=== PATIENT | male | born 1950 | race Caucasian/White ===

== ENCOUNTER 2017-06-23 15:03 | Emergency (ER) | payer MEDICARE ==
--- NOTE | 2017-06-23 15:08 | ER Document Report ---
ED General Pain - General Stated Complaint: RIGHT HIP/KNEE PAIN Time Seen by Provider: 06/23/17 15:07 Notes: 67-year-old male to the emergency department complaining of chronic pain in the right hip and right knee. Denies any trauma. History of cerebral palsy. 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 Pain is worse with movement but can move. Limited weightbearing. Normally he likes to sleep on his right side but it hurts to sleep so he has been sleeping on his left side. Denies any fever, chills, sweats. Denies any swelling or bruising outside of regular. TRAVEL OUTSIDE OF THE [place] IN LAST 30 DAYS: No - HPI Onset/Duration: Gradual Severity: Moderate Pain Level: 2 Context: Chronic problem - Related Data Allergies/Adverse Reactions: No Known Drug Allergies Allergy (Unknown, Verified 12/20/14 13:51) bee stings Allergy (Uncoded 12/20/14 13:51) Past Medical History - General Information source: Patient - Social History Smoking Status: Never Smoker Frequency of alcohol use: None Drug Abuse: None Lives with: Alone Family History: Reviewed & Not Pertinent, Other - Past Medical History Cardiac Medical History: Reports: Hx Hypercholesterolemia, Hx Hypertension Renal/ Medical History: Denies: Hx Peritoneal Dialysis GI Medical History: Reports: Hx Gastroesophageal Reflux Disease Musculoskeltal Medical History: Reports Hx Arthritis - osteoarthritis Past Surgical History: Reports: Hx Orthopedic Surgery - Left Knee, Hx Tonsillectomy - Immunizations Immunizations up to date: Yes Hx Diphtheria, Pertussis, Tetanus Vaccination: Yes Review of Systems - Review of Systems Constitutional: No symptoms reported EENT: No symptoms reported Cardiovascular: No symptoms reported Respiratory: No symptoms reported Gastrointestinal: No symptoms reported Genitourinary: No symptoms reported Male Genitourinary: No symptoms reported Musculoskeletal: See HPI, Other - Right hip and right knee pain Skin: No symptoms reported Hematologic/Lymphatic: No symptoms reported Neurological/Psychological: No symptoms reported, Other - History of cerebral palsy Physical Exam - Vital signs Vitals: Temp Pulse Resp BP Pulse Ox 98.1 F 90 18 140/90 H 99 06/23/17 15:33 06/23/17 15:33 06/23/17 15:33 06/23/17 15:33 06/23/17 15:33 Interpretation: Normal - General General appearance: Appears well, Alert - HEENT Head: Normocephalic, Atraumatic Eyes: Normal Pupils: PERRL - Respiratory Respiratory status: No respiratory distress Chest status: Nontender Breath sounds: Normal Chest palpation: Normal - Cardiovascular Rhythm: Regular Heart sounds: Normal auscultation Murmur: No - Abdominal Inspection: Normal Distension: No distension Bowel sounds: Normal Tenderness: Nontender Organomegaly: No organomegaly - Back Back: Normal, Nontender - Extremities General upper extremity: Normal inspection, Nontender, Normal color, Normal ROM , Normal temperature General lower extremity: Normal color, Normal ROM, Normal temperature, Other - No significant tenderness with range of motion. Able to bend the knee. Able to move the hip flexors on the right hip.. No: Edema, Clarke's sign - Neurological Neuro grossly intact: Yes Cognition: Normal Orientation: AAOx4 [place] Coma Scale Eye Opening: Spontaneous [place] Coma Scale Verbal: Oriented Eduard Coma Scale Motor: Obeys Commands Eduard Coma Scale Total: 15 Speech: Normal Sensory: Normal - Psychological Associated symptoms: Normal affect, Normal mood - Skin Skin Temperature: Warm Skin Moisture: Dry Skin Color: Normal Course - Re-evaluation Re-evalutation: 06/23/17 16:57 Femur X-Ray 06/23/17 15:17 IMPRESSION: Marked dysplasia of the right hip and tricompartmental degenerative changes of the knee without acute fracture or dislocation. Knee X-Ray 06/23/17 15:17 IMPRESSION: Tricompartmental degenerative changes and patella Amanda. No acute finding. Pelvis X-Ray 06/23/17 15:17 IMPRESSION: Dysplasia of the hips without acute fracture or dislocation visualized. No acute abnormalities noted in the femur, hip, pelvis, knee. Patient has some chronic degenerative changes with dysplasia. At this time will offer him some pain medication. Encouraged him to follow-up with his regular doctors. - Vital Signs Vital signs: Temp Pulse Resp BP Pulse Ox 98.1 F 90 18 140/90 H 99 06/23/17 15:33 06/23/17 15:33 06/23/17 15:33 06/23/17 15:33 06/23/17 15:33 Discharge - Discharge Clinical Impression: Chronic hip pain Qualifiers: Laterality: right Qualified Code(s): M25.551 - Pain in right hip; G89.29 - Other chronic pain; G89.29 - Other chronic pain Chronic knee pain Qualifiers: Laterality: right Qualified Code(s): M25.561 - Pain in right knee; G89.29 - Other chronic pain; G89.29 - Other chronic pain Condition: Good Disposition: HOME, SELF-CARE Instructions: Oral Narcotic Medication ([facility]), Chronic Pain Control ([facility]) Additional Instructions: There does not appear to be any acute injuries or issues with your hip or knee. This is a very basic workup. In the event that you develop fever, worsening pain, worsening symptoms or other concerns please return to the emergency department or follow-up with your regular doctor immediately. We will give you a short supply of some pain medication if needed. Prescriptions: Hydrocodone/Acetaminophen [Votaw 5-325 mg Tablet] 1 tab PO TID 4 Days #12 tablet
[2017-06-23] MEDS ORDERED: HYDROCODONE/ACETAMINOPHEN 5-325 MG TABLET PO ONE (15:17)
--- NOTE | 2017-06-23 16:37 | RADIOLOGY REPORT (SQ) ---
EXAM DESCRIPTION: FEMUR RIGHT COMPLETED DATE/TIME: 06/23/2017 4:20 pm REASON FOR STUDY: (right hip)pain without trauma COMPARISON: CT of the abdomen and pelvis dated 04/24/2015 NUMBER OF VIEWS: Two views. TECHNIQUE: Two radiographic images acquired of the right femur to include hip and knee in at least o ne projection. LIMITATIONS: None. FINDINGS: MINERALIZATION: Osteopenia. BONES: There is marked dysplasia of the right hip, similar to that seen on comparison CT imaging. Tr icompartmental degenerative changes are seen of the knee with patella Amanda. No acute fracture or dis location is visualized. SOFT TISSUES: No obvious swelling or foreign body. OTHER: No other significant finding. IMPRESSION: Marked dysplasia of the right hip and tricompartmental degenerative changes of the knee without acute fracture or dislocation. TECHNICAL DOCUMENTATION: JOB ID: [id number] [employer]- All Rights Reserved Reading location - IP/workstation name: [email or web address]
--- NOTE | 2017-06-23 16:39 | RADIOLOGY REPORT (SQ) ---
EXAM DESCRIPTION: KNEE RIGHT 2 VIEWS COMPLETED DATE/TIME: 06/23/2017 4:20 pm REASON FOR STUDY: pain without trauma COMPARISON: None. NUMBER OF VIEWS: Two views. TECHNIQUE: AP and lateral radiographic images acquired of the right knee. LIMITATIONS: None. FINDINGS: MINERALIZATION: Osteopenia. BONES: Tricompartmental degenerative changes. Patella Amanda. JOINT: No effusion. SOFT TISSUES: No soft tissue swelling. No radio-opaque foreign body. OTHER: No other significant finding. IMPRESSION: Tricompartmental degenerative changes and patella Amanda. No acute finding. TECHNICAL DOCUMENTATION: JOB ID: [id number] [employer]- All Rights Reserved Reading location - IP/workstation name: [email or web address]
--- NOTE | 2017-06-23 16:40 | RADIOLOGY REPORT (SQ) ---
EXAM DESCRIPTION: PELVIS AP COMPLETED DATE/TIME: 06/23/2017 4:20 pm REASON FOR STUDY: pain without trauma COMPARISON: CT of the abdomen and pelvis 04/24/2015 NUMBER OF VIEWS: One view TECHNIQUE: AP Pelvis LIMITATIONS: None. FINDINGS: MINERALIZATION: Osteopenia. HIPS: Marked dysplasia seen of the right hip, similar to that seen on comparison CT imaging. Moderat e dysplasia is seen of the left hip. PELVIS AND SACRUM: No acute fracture or dislocation. No worrisome bone lesions. PUBIS AND ISCHIUM: No acute fracture. LOWER LUMBAR SPINE: No significant findings as visualized. SOFT TISSUES: No findings. OTHER: No other significant finding. IMPRESSION: Dysplasia of the hips without acute fracture or dislocation visualized. TECHNICAL DOCUMENTATION: JOB ID: [id number] [employer] All Rights Reserved Reading location - IP/workstation name: [email or web address]
[2017-06-23 17:16] LABS: INTERNATIONAL RATION (INR) 2.18; PROTHROMBIN TIME 25.4 SEC (11.4-15.4)
[2017-06-23 18:01] VITALS: BP 139/88
== END 2017-06-23 18:01 | disposition home or self-care (01) ==
LOC: ER 15:03
DX: G89.29 Other chronic pain (principal); M25.551 Pain in right hip; M25.561 Pain in right knee; G80.9 Cerebral palsy, unspecified; I10 Essential (primary) hypertension; Z86.718 Personal history of other venous thrombosis and embolism; Z79.01 Long term (current) use of anticoagulants; Z91.030 Bee allergy status
CPT/HCPCS: 99283; 36415; 85610; 73552; 73560; 72170; A9270

== ENCOUNTER 2017-07-26 13:42 | Emergency (ER) | payer MEDICARE, MEDICAID ==
--- NOTE | 2017-07-26 13:47 | ER Document Report ---
ED General - General Stated Complaint: RIGHT FLANK PAIN Time Seen by Provider: 07/26/17 13:46 Mode of Arrival: Ambulatory Information source: Patient TRAVEL OUTSIDE OF THE U.[place]. IN LAST 30 DAYS: No - HPI Notes: 67-year-old male with a history of chronic back pain, cerebral palsy presents today with complaints of lower back pain when he was transferred from a [place] to his bed last night. Denies any trauma or falling. Patient does not ambulate , this is his baseline. Pain is 6 out of 10, sharp and shooting. Worse with time, nothing makes better. Patient has not tried any heat or ice. Patient takes oxycodone as prescribed to him by his doctor. Denies trauma denies fevers , chills, chest pain,palpitations, shortness of breath, dyspnea, nausea, vomiting, diarrhea, abdominal pain, hematuria,blurred vision, double vision, loss of vision, speech changes, LH, dizziness, syncope, headaches, wheezing, ST , URI, neck pain, weakness, bowel or bladder dysfunction, saddle anesthesia, numbness or tingling in bilateral upper or lower extremities equally, muscle paralysis, weakness in bilateral upper or lower extremities equally or rash. Denies IV drug use. - Related Data Allergies/Adverse Reactions: No Known Drug Allergies Allergy (Unknown, Verified 07/26/17 14:04) bee stings Allergy (Uncoded 07/26/17 14:04) Past Medical History - General Information source: Patient - Social History Smoking Status: Unknown if Ever Smoked Family History: Reviewed & Not Pertinent, Other - Past Medical History Cardiac Medical History: Reports: Hx Hypercholesterolemia, Hx Hypertension Renal/ Medical History: Denies: Hx Peritoneal Dialysis GI Medical History: Reports: Hx Gastroesophageal Reflux Disease Musculoskeltal Medical History: Reports Hx Arthritis - osteoarthritis Past Surgical History: Reports: Hx Orthopedic Surgery - Left Knee, Hx Tonsillectomy - Immunizations Immunizations up to date: Yes Hx Diphtheria, Pertussis, Tetanus Vaccination: Yes Review of Systems - Review of Systems Constitutional: No symptoms reported EENT: No symptoms reported Cardiovascular: No symptoms reported Respiratory: No symptoms reported Gastrointestinal: No symptoms reported Genitourinary: No symptoms reported Male Genitourinary: No symptoms reported Musculoskeletal: See HPI Skin: No symptoms reported Hematologic/Lymphatic: No symptoms reported Neurological/Psychological: No symptoms reported Physical Exam - Vital signs Vitals: Temp Pulse Resp BP Pulse Ox 98.0 F 86 20 142/90 H 96 07/26/17 13:56 07/26/17 13:56 07/26/17 13:56 07/26/17 13:56 07/26/17 13:56 - Notes Notes: PHYSICAL EXAMINATION: GENERAL: Well-appearing, well-nourished and in no acute distress. HEAD: Atraumatic, normocephalic. EYES: Pupils equal round and reactive to light, extraocular movements intact, sclera anicteric, conjunctiva are normal. ENT: Nares patent, oropharynx clear without exudates. Moist mucous membranes. NECK: Normal range of motion, supple without lymphadenopathy LUNGS: Breath sounds clear to auscultation bilaterally and equal. No wheezes rales or rhonchi. HEART: Regular rate and rhythm without murmurs ABDOMEN: Soft, nontender, nondistended abdomen. No guarding, no rebound. No masses appreciated. Musculoskeletal: Normal range of motion, no pitting or edema. No cyanosis. NEUROLOGICAL: Cranial nerves grossly intact. Normal speech, normal gait. Normal sensory, motor exams.Pain with flexion and extension at 30 degrees, positive straight leg test positive. Normal hip rotation. DTR +2 in BLE equally. Strength 5 out of 5 both distally and proximally to bilateral lower extremities normal motor and sensory function in BLE equally. Distal pulses + 2 BLE equally. Noted paraspinal tenderness near L2 and L3. No spinal tenderness. No CVA tenderness bilaterally. Femoral pulses + 2 bilaterally and equally. No abrasions, scars, lacerations, ecchymosis of any recent trauma. normal gait. PSYCH: Normal mood, normal affect. SKIN: Warm, Dry, normal turgor, no rashes or lesions noted. Course - Re-evaluation Re-evalutation: 07/26/17 15:26 59-year-old male who appears chronically ill, afebrile vitals stable here for evaluation of lower back pain after he was moved from [place] to his bed yesterday. States pain is stabbing. Denies any trauma. Lumbar spine is negative for any acute fractures. Clinical examination does not have any lumbar spinal tenderness but does have paraspinal tenderness on the left and the right near L1 through L3. Patient does have full motor and sensory function bilateral lower extremities. She given 5 mg of morphine IM. On reevaluation, and states his pain decreased from a 6 to a 2 out of 10. Advised patient since he is already on oral narcotics, will prescribe Flexeril as well as an anti-inflammatories such as prednisone. Patient has a follow-up appointment with his doctor on August 01, advised patient also follow-up with card services specialist as needed. Advised to apply heat 20 minutes on 20 minutes off several times a day as well as back stretches. At this time will discharge with return precautions and follow-up recommendations. Verbal discharge instructions given a the bedside and opportunity for questions given. Be transported home through [facility] medication warnings reviewed. Patient is in agreement with this plan and has verbalized understanding of return precautions and the need for primary care follow-up in the next 24-72 hours. After performing a Medical Screening Examination, I estimate there is LOW risk for EXPANDING OR RUPTURED ABDOMINAL AORTIC ANEURYSM, CAUDA EQUINA SYNDROME, EPIDURAL MASS ABSCESS OR LESION(S), OSTEOMYELITIS,PERSONAL HISTORY OF CANCER, IMMUNOSUPPERSSSION, HISTORY OF IV DRUG USE, FRACTURE, CORD COMPERSSION, CANCER, RETROPERITONEAL BLEED, SPINAL EPIDURAL HEMATOMA, or HERNIATED DISK CAUSING SEVERE SPINAL STENOSIS, thus I consider the discharge disposition reasonable. I have reevaluated this patient multiple times and no significant life threatening changes are noted. The patient and I have discussed the diagnosis and risks, and we agree with discharging home and close follow-up. We also discussed returning to the Emergency Department immediately if new or worsening symptoms occur with the understanding that symptoms and presentations can change. We have discussed the symptoms which are most concerning (e.g., saddle anesthesia, urinary or bowel incontinence or retention, changing or worsening pain) that necessitate immediate return. 07/26/17 15:29 - Vital Signs Vital signs: Temp Pulse Resp BP Pulse Ox 98.0 F 86 20 142/90 H 96 07/26/17 13:56 07/26/17 13:56 07/26/17 13:56 07/26/17 13:56 07/26/17 13:56 Discharge - Discharge Clinical Impression: LOWER BACK SPRAIN Condition: Good Disposition: HOME, SELF-CARE Instructions: Chronic Back Pain ([facility]), Low Back Pain ([facility]), Stretching Exercises for the Back ([facility]) Prescriptions: Cyclobenzaprine HCl [Flexeril 10 mg Tablet] 10 mg PO TIDP PRN #9 tab PRN Reason: Prednisone 20 mg PO BID #10 tablet Referrals: STEVEN DEL RIO MD [Primary Care Provider] - Follow up in 3-5 days FRANKLYN POWERS MD [ACTIVE STAFF] - Follow up as needed
[2017-07-26] MEDS ORDERED: MORPHINE SULFATE 10 MG/ML INJ IM ONE (14:04)
--- NOTE | 2017-07-26 14:51 | RADIOLOGY REPORT (SQ) ---
EXAM DESCRIPTION: L SPINE WHOLE COMPLETED DATE/TIME: 07/26/2017 2:44 pm REASON FOR STUDY: sharp LBP x 1 day COMPARISON: None. NUMBER OF VIEWS: Five views including obliques. TECHNIQUE: AP, lateral, oblique, and sacral radiographic images acquired of the lumbar spine. LIMITATIONS: None. FINDINGS: MINERALIZATION: Normal. SEGMENTATION: Normal. No transitional anatomy. ALIGNMENT: Normal. VERTEBRAE: Maintained height. No fracture or worrisome bone lesion. DISCS: Multilevel disc space narrowing with osteophytes. POSTERIOR ELEMENTS: Pedicles and facets are intact. No pars defect or posterior arch defects. Facet arthropathy is present. HARDWARE: None in the spine. PARASPINAL SOFT TISSUES: Normal. PELVIS: Intact as visualized. No fractures or worrisome bone lesions. SI joints intact. Severe degen erative changes in the hips, not fully imaged. OTHER: No other significant finding. IMPRESSION: SPONDYLOSIS WITHOUT BONE LESION OR FRACTURE. TECHNICAL DOCUMENTATION: JOB ID: [id number] [employer]- All Rights Reserved Reading location - IP/workstation name: [email or web address]
[2017-07-26 17:28] VITALS: BP 151/93
== END 2017-07-26 17:28 | disposition home or self-care (01) ==
LOC: ER 13:42
DX: S33.5XXA Sprain of ligaments of lumbar spine, initial encounter (principal); R10.9 Unspecified abdominal pain; M54.5 Low back pain; M54.9 Dorsalgia, unspecified; G89.29 Other chronic pain; X58.XXXA Exposure to other specified factors, initial encounter; Z79.899 Other long term (current) drug therapy; I10 Essential (primary) hypertension
CPT/HCPCS: 99284; 96372; 72110; J2270

== ENCOUNTER 2017-08-18 08:57 | Emergency (ER) | payer MEDICARE, MEDICAID ==
--- NOTE | 2017-08-18 09:23 | ER Document Report ---
ED Neck/Back Problem <MITCH YANG - Last Filed: 08/18/17 10:21> - General Mode of Arrival: Ambulatory Information source: Patient TRAVEL OUTSIDE OF THE [place] IN LAST 30 DAYS: No <JAGRUTI BURTON - Last Filed: 08/18/17 11:11> - General Chief Complaint: Back Pain Stated Complaint: BACK PAIN Time Seen by Provider: 08/18/17 09:09 Notes: Patient is a 67-year-old male who presents to the emergency department today with complaints of acute on chronic back pain. Patient states the pain begins in his shouldersand goes down to his lower back. Patient denies any trauma or injury to this area. (JAGRUTI BURTON) - Related Data Allergies/Adverse Reactions: No Known Drug Allergies Allergy (Unknown, Verified 08/18/17 09:12) bee stings Allergy (Uncoded 08/18/17 09:12) Past Medical History - General Information source: Patient - Social History Smoking Status: Unknown if Ever Smoked Cigarette use (# per day): No Frequency of alcohol use: None Drug Abuse: None Lives with: Family Family History: Reviewed & Not Pertinent, Other Patient has suicidal ideation: No Patient has homicidal ideation: No - Past Medical History Cardiac Medical History: Reports: Hx Atrial Fibrillation, Hx Hypercholesterolemia, Hx Hypertension Neurological Medical History: Reports: Other - Hx of CP, diagnosed at -- only effects the legs GI Medical History: Reports: Hx Gastroesophageal Reflux Disease Musculoskeltal Medical History: Reports Hx Arthritis - osteoarthritis Past Surgical History: Reports: Hx Orthopedic Surgery - Left Knee, Hx Tonsillectomy, Other - 11 surgeries on legs for CP - Immunizations Immunizations up to date: Yes Hx Diphtheria, Pertussis, Tetanus Vaccination: Yes <JAGRUTI BURTON - Last Filed: 08/18/17 11:11> Review of Systems - Review of Systems Constitutional: No symptoms reported EENT: No symptoms reported Cardiovascular: No symptoms reported Respiratory: No symptoms reported Gastrointestinal: No symptoms reported Genitourinary: No symptoms reported Male Genitourinary: No symptoms reported Musculoskeletal: See HPI, Back pain Skin: No symptoms reported Hematologic/Lymphatic: No symptoms reported Neurological/Psychological: No symptoms reported -: Yes All other systems reviewed and negative <JAGRUTI BURTON - Last Filed: 08/18/17 11:11> Physical Exam <MITCH YANG - Last Filed: 08/18/17 10:21> <JAGRUTI BURTON - Last Filed: 08/18/17 11:11> - Vital signs Vitals: Resp BP Pulse Ox 25 H 137/90 H 96 08/18/17 09:07 08/18/17 09:07 08/18/17 09:07 - Notes Notes: Physical Exam: General: Alert. HEENT: Normocephalic. Atraumatic. PERRL. Extraocular movements intact. Oropharynx clear. Neck: Supple. Non-tender. Respiratory: No respiratory distress. Clear and equal breath sounds bilaterally. Cardiovascular: Irregularly irregular, normal rhythm. Abdominal: Obese. Non-tender. No distension. Normal Bowel Sounds. Back: Diffuse paravertebral tenderness with palpation. Large very soft mass to superior portion of T-spine. No deformity or step off. Extremities: Moves all four extremities. Upper extremities: Normal inspection. Normal ROM. Lower extremities: Normal inspection. No edema. Normal ROM. Neurological: Normal cognition. AAOx4. Normal speech. Psychological: Normal affect. Normal Mood. Skin: Warm. Dry. Normal color. No sores or skin breakdown on back, area of previous old decubitus ulcer just superior to gluteal cleft which is well healed. (JAGRUTI BURTON) Course - Laboratory Result Diagrams: 08/18/17 08:40 08/18/17 08:40 <TREYMITCH Lombardi - Last Filed: 08/18/17 10:21> - Laboratory Result Diagrams: 08/18/17 08:40 08/18/17 08:40 <JAGRUTI BURTON - Last Filed: 08/18/17 11:11> - Vital Signs Vital signs: Temp Pulse Resp BP Pulse Ox 98.0 F 19 119/70 96 08/18/17 09:13 08/18/17 10:29 08/18/17 10:29 08/18/17 10:29 - Laboratory Laboratory results interpreted by me: 08/18/17 08/18/17 08/18/17 08:40 08:40 08:40 RBC 5.78 H RDW 14.5 H PT 23.9 H Carbon Dioxide 32 H Creatinine 0.50 L Glucose 138 H Total Bilirubin 1.6 H Direct Bilirubin 0.6 H Urine Blood Urine Urobilinogen 08/18/17 09:35 RBC RDW PT Carbon Dioxide Creatinine Glucose Total Bilirubin Direct Bilirubin Urine Blood SMALL H Urine Urobilinogen 4.0 H Discharge <MITCH YANG - Last Filed: 08/18/17 10:21> <JAGRUTI BURTON - Last Filed: 08/18/17 11:11> - Discharge Clinical Impression: Exacerbation of chronic back pain, Chronic atrial fibrillation Condition: Stable Disposition: HOME, SELF-CARE Additional Instructions: Take the cyclobenzaprine as prescribed for your back muscle discomfort. Continue your other medications. Follow-up with your primary care provider if not improving. RETURN TO THE EMERGENCY ROOM IF ANY NEW OR WORSENING SYMPTOMS. Prescriptions: Cyclobenzaprine HCl [Flexeril 10 mg Tablet] 10 mg PO TIDP PRN #15 tab PRN Reason: Muscle Spasms Referrals: STEVEN DEL RIO MD [Primary Care Provider] - Follow up as needed Scribe Attestation: 08/18/17 09:57 I personally performed the services described in the documentation, reviewed and edited the documentation which was dictated to the scribe in my presence, and it accurately records my words and actions. (MITCH YANG) Scribe Documentation - Scribe Written by Hannah:: Hannah Solis, 08/18/2017, 1056 acting as scribe for :: Trey <JAGRUTI BURTON - Last Filed: 08/18/17 11:11>
[2017-08-18 09:33] LABS: ABSOLUTE BASOPHILS # (AUTO) 0.1 10^3/uL (0.0-0.2); ABSOLUTE EOSINOPHILS # (AUTO) 0.3 10^3/uL (0.0-0.6); ABSOLUTE LYMPHOCYTES (AUTO) 2.2 10^3/uL (0.5-4.7); ABSOLUTE MONOCYTES (AUTO) 0.9 10^3/uL (0.1-1.4); BASOPHILS % (AUTO) 0.8 % (0-2); EOSINOPHILS % (AUTO) 2.9 % (0-6); HEMATOCRIT 46.8 % (37.9-51.0); LYMPHOCYTES % (AUTO) 21.3 % (13-45); MEAN CORPUSCULAR HEMOGLOBIN 27.6 pg (27.0-33.4); MEAN CORPUSCULAR HGB CONC 34.1 g/dL (32.0-36.0); MEAN CORPUSCULAR VOLUME 81 fl (80-97); MONOCYTES % (AUTO) 8.2 % (3-13); PLATELET COUNT 273 10^3/uL (150-450); RED BLOOD COUNT 5.78 10^6/uL (4.35-5.55); RED CELL DISTRIBUTION WIDTH 14.5 % (11.5-14.0); SEGMENTED NEUTROPHILS % (AUTO) 66.8 % (42-78); TOTAL CELLS COUNTED % (AUTO) 100 %; WHITE BLOOD COUNT 10.5 10^3/uL (4.0-10.5)
[2017-08-18 09:49] LABS: INTERNATIONAL RATION (INR) 2.02; PROTHROMBIN TIME 23.9 SEC (11.4-15.4)
[2017-08-18 09:51] LABS: ALANINE AMINOTRANSFERASE 46 U/L (21-72); ALBUMIN 3.8 g/dL (3.5-5.0); ALKALINE PHOSPHATASE 84 U/L (38-126); ANION GAP 11 (5-19); ASPARTATE AMINO TRANSFERASE 49 U/L (17-59); BILIRUBIN,DIRECT 0.6 mg/dL (0.0-0.4); BILIRUBIN,TOTAL 1.6 mg/dL (0.2-1.3); BLOOD UREA NITROGEN 14 mg/dL (7-20); CALCIUM 8.9 mg/dL (8.4-10.2); CARBON DIOXIDE 32 mmol/L (22-30); CHLORIDE 98 mmol/L (98-107); GLUCOSE 138 mg/dL (75-110); POTASSIUM 3.7 mmol/L (3.6-5.0); SODIUM 141.2 mmol/L (137-145); TOTAL PROTEIN 7.5 g/dL (6.3-8.2)
[2017-08-18 10:09] LABS: APPEARANCE,URINE SLIGHTLY-CLOUDY; BILIRUBIN,URINE NEGATIVE (NEGATIVE); COLOR,URINE AMBER; GLUCOSE, URINE NEGATIVE (NEGATIVE); KETONES,URINE NEGATIVE (NEGATIVE); LEUKOCYTE ESTERASE,URINE NEGATIVE (NEGATIVE); NITRITE,URINE NEGATIVE (NEGATIVE); PROTEIN,URINE NEGATIVE (NEGATIVE)
[2017-08-18 12:04] VITALS: BP 134/77
== END 2017-08-18 12:09 | disposition home or self-care (01) ==
LOC: ER 08:57
DX: G89.29 Other chronic pain (principal); M54.5 Low back pain; I48.2 Chronic atrial fibrillation; M25.519 Pain in unspecified shoulder; R22.2 Localized swelling, mass and lump, trunk; I10 Essential (primary) hypertension; Z91.030 Bee allergy status
CPT/HCPCS: 36415; 80053; 81001; 85025; 85610; 99283

== ENCOUNTER 2017-08-24 11:08 | Observation (INO) | payer MEDICARE, MEDICAID ==
--- NOTE | 2017-08-24 12:02 | RADIOLOGY REPORT (SQ) ---
EXAM DESCRIPTION: CHEST SINGLE VIEW COMPLETED DATE/TIME: 08/24/2017 11:44 am REASON FOR STUDY: chest pain COMPARISON: Chest films 01/30/2013, 04/27/2015 EXAM PARAMETERS: NUMBER OF VIEWS: One view. TECHNIQUE: Single frontal radiographic view of the chest acquired. RADIATION DOSE: NA LIMITATIONS: Portable film, left lateral costophrenic sulcus cropped from the field of view FINDINGS: LUNGS AND PLEURA: No opacities, masses or pneumothorax. No pleural effusion. MEDIASTINUM AND HILAR STRUCTURES: No masses. Contour normal. HEART AND VASCULAR STRUCTURES: Stable cardiomegaly BONES: No acute findings. HARDWARE: None in the chest. OTHER: No other significant finding. IMPRESSION: Limited negative study. Left lateral costophrenic sulcus cropped from the field of view TECHNICAL DOCUMENTATION: JOB ID: [id number] [employer]- All Rights Reserved Reading location - IP/workstation name: [email or web address]
[2017-08-24 12:07] LABS: ABSOLUTE EOSINOPHILS # (AUTO) 0.3 10^3/uL (0.0-0.6); ABSOLUTE LYMPHOCYTES (AUTO) 1.5 10^3/uL (0.5-4.7); ABSOLUTE MONOCYTES (AUTO) 0.4 10^3/uL (0.1-1.4); BASOPHILS % (AUTO) 0.6 % (0-2); HEMATOCRIT 43.2 % (37.9-51.0); HEMOGLOBIN 14.8 g/dL (13.5-17.0); LYMPHOCYTES % (AUTO) 24.2 % (13-45); MEAN CORPUSCULAR HEMOGLOBIN 27.4 pg (27.0-33.4); MEAN CORPUSCULAR HGB CONC 34.3 g/dL (32.0-36.0); MEAN CORPUSCULAR VOLUME 80 fl (80-97); MONOCYTES % (AUTO) 6.8 % (3-13); PLATELET COUNT 281 10^3/uL (150-450); RED BLOOD COUNT 5.41 10^6/uL (4.35-5.55); RED CELL DISTRIBUTION WIDTH 14.4 % (11.5-14.0); SEGMENTED NEUTROPHILS % (AUTO) 63.4 % (42-78); TOTAL CELLS COUNTED % (AUTO) 100 %; WHITE BLOOD COUNT 6.4 10^3/uL (4.0-10.5)
--- NOTE | 2017-08-24 12:11 | ER Document Report ---
ED Cardiac - General Mode of Arrival: Medic Information source: Patient TRAVEL OUTSIDE OF THE [place] IN LAST 30 DAYS: No <ALEXEY MARMOLEJO - Last Filed: 08/24/17 16:04> <XOCHITL BAEZ - Last Filed: 08/24/17 16:35> - General Chief Complaint: Chest Pain Stated Complaint: CHEST PAIN Time Seen by Provider: 08/24/17 11:59 Notes: 67 y.o male with Afib, cerebral palsy and arthritis to his shoulder presents to the ED via EMS with CP of onset this morning around 1000. He reports that he was already awake when the pain began. He describes the pain as sharp and intermittent and states that the pain in his chest radiates to his back between his shoulder blades. He states that the Nitroglycerine that EMS gave en route has helped relieve his sx. He denies any hx of [place] or stents and denies needing to be on Oxygen at home. He denies any nausea, SOB or diaphoresis. States that the pain is similar to when he has had heart burn, but that his pain today did not originate after eating. Pt uses a wheel chair at home due to his cerebral palsy. He takes Warfarin 7.5 on Sundays, Tuesdays and for Afib and 5mg of Warfarin the other days. (ALEXEY MARMOLEJO) - Related Data Allergies/Adverse Reactions: No Known Drug Allergies Allergy (Unknown, Verified 08/18/17 09:12) bee stings Allergy (Uncoded 08/18/17 09:12) Past Medical History - General Information source: Patient - Social History Smoking Status: Never Smoker Cigarette use (# per day): No Chew tobacco use (# tins/day): No Smoking Education Provided: No Frequency of alcohol use: None Drug Abuse: None Lives with: Family Family History: Reviewed & Not Pertinent, Other Patient has suicidal ideation: No Patient has homicidal ideation: No - Past Medical History Cardiac Medical History: Reports: Hx Atrial Fibrillation, Hx Hypercholesterolemia, Hx Hypertension Renal/ Medical History: Denies: Hx Peritoneal Dialysis GI Medical History: Reports: Hx Gastroesophageal Reflux Disease Musculoskeltal Medical History: Reports Hx Arthritis - osteoarthritis Past Surgical History: Reports: Hx Orthopedic Surgery - Left Knee, Hx Tonsillectomy, Other - 11 surgeries on legs for CP - Immunizations Immunizations up to date: Yes Hx Diphtheria, Pertussis, Tetanus Vaccination: Yes <ALEXEY MARMOLEJO - Last Filed: 08/24/17 16:04> Review of Systems - Review of Systems Constitutional: See HPI. denies: Diaphoresis EENT: No symptoms reported Cardiovascular: Chest pain - radiating to back Respiratory: denies: Short of breath Gastrointestinal: denies: Nausea Genitourinary: No symptoms reported Male Genitourinary: No symptoms reported Musculoskeletal: No symptoms reported Skin: No symptoms reported Hematologic/Lymphatic: No symptoms reported Neurological/Psychological: No symptoms reported -: Yes All other systems reviewed and negative <ALEXEY MARMOLEJO - Last Filed: 08/24/17 16:04> Physical Exam <ALEXEY MARMOLEJO - Last Filed: 08/24/17 16:04> <XOCHITL BAEZ - Last Filed: 08/24/17 16:35> - Vital signs Vitals: Pulse Ox 100 08/24/17 11:10 - Notes Notes: PHYSICAL EXAM GENERAL: Alert, interacts well. No acute distress. HEAD: Normocephalic, atraumatic. EYES: Pupils equal, round, and reactive to light. Extraocular movements intact. ENT: Oral mucosa moist, tongue midline. NECK: Full range of motion. Supple. Trachea midline. LUNGS: Clear to auscultation bilaterally, no wheezes, rales, or rhonchi. No respiratory distress. HEART: Irregularly irregular rhythm. mild tachycardic rate. No murmurs, gallops , or rubs. ABDOMEN: Obese. Soft, non-tender. Bowel sounds present in all 4 quadrants. No guarding, rebound, or rigidity. EXTREMITIES: Moves all 4 extremities spontaneously. No edema, radial and dorsalis pedis pulses 2/4 bilaterally. No cyanosis. NEUROLOGICAL: Alert and oriented x3. Normal speech. PSYCH: Normal affect, normal mood. SKIN: Warm, dry, normal turgor. No rashes or lesions noted. (ALEXEY MARMOLEJO) Course - Laboratory Result Diagrams: 08/24/17 11:50 08/24/17 11:50 <ALEXEY MARMOLEJO - Last Filed: 08/24/17 16:04> - Laboratory Result Diagrams: 08/24/17 11:50 08/24/17 11:50 <XOCHITL BAEZ - Last Filed: 08/24/17 16:35> - Re-evaluation Re-evalutation: 08/24/17 13:44 CBC unremarkable, CMP shows negative troponin is 0.017 otherwise unremarkable, EKG is nonischemic. Chest x-ray initially cut off the left costophrenic sulcus but showed no acute process. Patient has a HEART score of 5. Dr. Brady will come to the emergency department to discuss this patient with me further for possible observation. Pain is completely relieved with nitroglycerin from EMS. 08/24/17 14:32 Dr. Brady requests a CTA of the chest to rule out pulmonary embolism, accepts the patient to his service in observation status. CT angiogram has been ordered. (XOCHITL BAEZ) - Vital Signs Vital signs: Temp Pulse Resp BP Pulse Ox 20 126/67 H 97 08/24/17 16:00 08/24/17 13:01 08/24/17 14:00 - Laboratory Laboratory results interpreted by me: 08/24/17 08/24/17 11:50 11:50 RDW 14.4 H Creatinine 0.47 L Glucose 129 H Creatine Kinase 42 L Albumin 3.3 L - EKG Interpretation by Me Additional EKG results interpreted by me: 08/24/17 13:44 EKG shows atrial fibrillation at a rate of 120, normal axis, normal intervals, no ST segment elevations or depressions, no T-wave inversions although is there is some nonspecific T-wave flattening in 2 and 3 as well as aVL per my interpretation. (XOCHITL BAEZ) Discharge <ALEXEY MARMOLEJO - Last Filed: 08/24/17 16:04> - Discharge Admitting Provider: Hospitalist - Jose Antonio Unit Admitted: Telemetry <XOCHITL BAEZ - Last Filed: 08/24/17 16:35> - Discharge Clinical Impression: Chest pain, rule out acute myocardial infarction Condition: Fair Disposition: ADMITTED OBSERVATION Scribe Attestation: 08/24/17 16:35 I personally performed the services described in the documentation, reviewed and edited the documentation which was dictated to the scribe in my presence, and it accurately records my words and actions. (XOCHITL BAEZ) Scribe Documentation - Scribe Written by Scribe:: Hannah Ortiz [id number] 08/24/17 acting as scribe for :: Negar <ALEXEY MARMOLEJO - Last Filed: 08/24/17 16:04>
[2017-08-24 12:28] LABS: ALANINE AMINOTRANSFERASE 37 U/L (21-72); ALBUMIN 3.3 g/dL (3.5-5.0); ALKALINE PHOSPHATASE 86 U/L (38-126); ANION GAP 11 (5-19); ASPARTATE AMINO TRANSFERASE 24 U/L (17-59); BILIRUBIN,DIRECT 0.3 mg/dL (0.0-0.4); BILIRUBIN,TOTAL 0.6 mg/dL (0.2-1.3); BLOOD UREA NITROGEN 12 mg/dL (7-20); CALCIUM 8.8 mg/dL (8.4-10.2); CARBON DIOXIDE 28 mmol/L (22-30); CHLORIDE 102 mmol/L (98-107); CREATINE KINASE 42 U/L (55-170); GLUCOSE 129 mg/dL (75-110); POTASSIUM 3.7 mmol/L (3.6-5.0); SODIUM 141.4 mmol/L (137-145); TOTAL PROTEIN 6.4 g/dL (6.3-8.2)
[2017-08-24 12:48] LABS: CREATINE KINASE MB 0.53 ng/mL (<4.55); TROPONIN I 0.017 ng/mL
--- NOTE | 2017-08-24 13:14 | EKG REPORT ---
SEVERITY:- ABNORMAL ECG - ATRIAL FIBRILLATION, V-RATE 93-165 BORDERLINE PROLONGED QT INTERVAL : Confirmed by: Ashwin Khalil MD 24-Aug-2017 13:14:03
--- NOTE | 2017-08-24 13:54 | RADIOLOGY REPORT (SQ) ---
EXAM DESCRIPTION: CHEST SINGLE VIEW COMPLETED DATE/TIME: 08/24/2017 1:43 pm REASON FOR STUDY: repeat bc L lat costophrenic sulcus cut off prior COMPARISON: 08/24/2017, 04/27/2015, 01/30/2013 CT abdomen pelvis 04/24/2015 EXAM PARAMETERS: NUMBER OF VIEWS: One view. TECHNIQUE: Single frontal radiographic view of the chest acquired. RADIATION DOSE: NA LIMITATIONS: None. FINDINGS: LUNGS AND PLEURA: Bandlike atelectasis or scarring left lateral costophrenic sulcus, uncha nged from 04/27/2015. Lungs are otherwise well inflated and clear. MEDIASTINUM AND HILAR STRUCTURES: No masses. Contour normal. HEART AND VASCULAR STRUCTURES: Stable cardiomegaly BONES: No acute findings. HARDWARE: None in the chest. OTHER: EKG leads over the chest IMPRESSION: Bandlike atelectasis or scarring left lateral costophrenic sulcus unchanged from 2016. TECHNICAL DOCUMENTATION: JOB ID: [id number] [employer]- All Rights Reserved Reading location - IP/workstation name: [email or web address]
[2017-08-24] MEDS ORDERED: ONDANSETRON 4 MG TAB.RAPDIS PO PRN (14:23)
[2017-08-24] MEDS ORDERED: ACETAMINOPHEN 325 MG TABLET PO PRN (14:23)
[2017-08-24] MEDS ORDERED: OXYCODONE-ACETAMINOPHEN 5-325 MG TABLET PO PRN (14:23)
--- NOTE | 2017-08-24 14:39 | PDOC H&P ---
History of Present Illness Admission Date/PCP: STEVEN DEL RIO MD History of Present Illness: ESA AMADO is a 67 year old male patient with past medical history of cerebral palsy, hypertension, hyperlipidemia, osteoarthritis, atrial fibrillation and morbid obesity presents with chest pain. Patient claims he has been in his usual baseline state of health up until 10 AM this morning when he woke up with chest pain localized to his chest centrally and radiating between 2 of his shoulder blades. Patient was given by EMS nitroglycerin and he reports this the chest pain relieved with it. Patient denies chills, fever, palpitation or diaphoresis. He denied abdominal pain, nausea, vomiting, diarrhea or any urinary complaints. No headache dizziness or blurred vision. His initial blood workup and chest x-ray are unremarkable. I discussed with the ER attending the possibility of pulmonary embolism so patient is going to have CTA of the chest. Past Medical History Cardiac Medical History: Reports: Atrial Fibrillation, Hyperlipidema, Hypertension GI Medical History: Reports: Gastroesophageal Reflux Disease Musculoskeltal Medical History: Reports: Arthritis - osteoarthritis Past Surgical History Past Surgical History: Reports: Orthopedic Surgery - Left Knee, Tonsillectomy, Other - 11 surgeries on legs for CP Social History Lives with: Family Smoking Status: Never Smoker Frequency of Alcohol Use: None Hx Recreational Drug Use: No Hx Prescription Drug Abuse: No - Advance Directive Resuscitation Status: Full Code Family History Family History: Reviewed & Not Pertinent, Other Parental Family History Reviewed: Yes Children Family History Reviewed: Yes Sibling(s) Family History Reviewed.: Yes Medication/Allergy Home Medications: Etodolac [Etodolac] 1 tab PO BID 04/24/15 Furosemide [Furosemide] 1 tab PO DAILY 04/24/15 Metoprolol Succinate [Toprol XL 100 mg Tablet] 1 tab PO DAILY 04/24/15 Omeprazole [Omeprazole] 1 tab PO DAILY 04/24/15 Simvastatin [Simvastatin] 1 tab PO DAILY 04/24/15 Warfarin Sodium [Warfarin Sodium] 1 tab PO 04/24/15 Warfarin Sodium [Warfarin Sodium] 7.5 mg PO 04/24/15 Hydrocodone/Acetaminophen [[place] 5-325 mg Tablet] 1 tab PO Q6HP PRN #15 tablet 06/10/15 Hydrocodone/Acetaminophen [[place] 5-325 Tablet] 1 each PO Q4 PRN #12 tablet 08/05 Hydrocodone/Acetaminophen [[place] 5-325 mg Tablet] 1 tab PO TID 4 Days #12 tablet 06/23/17 Cyclobenzaprine HCl [Flexeril 10 mg Tablet] 10 mg PO TIDP PRN #9 tab 07/26/17 Prednisone 20 mg PO BID #10 tablet 07/26/17 Cyclobenzaprine HCl [Flexeril 10 mg Tablet] 10 mg PO TIDP PRN #15 tab 08/18/17 Allergies/Adverse Reactions: No Known Drug Allergies Allergy (Unknown, Verified 08/18/17 09:12) bee stings Allergy (Uncoded 08/18/17 09:12) Review of Systems Constitutional: PRESENT: as per HPI Eyes: PRESENT: as per HPI Nose, Mouth, and Throat: PRESENT: as per HPI Cardiovascular: ABSENT: chest pain, dyspnea on exertion, edema, orthropnea, palpitations Respiratory: ABSENT: cough, hemoptysis Gastrointestinal: PRESENT: other - Morbidly obese abdomen. ABSENT: abdominal pain, constipation, diarrhea, hematemesis, hematochezia, nausea, vomiting Neurological: ABSENT: abnormal gait, abnormal speech, confusion, dizziness, focal weakness, syncope Psychiatric: ABSENT: anxiety, depression, homidical ideation, suicidal ideation Physical Exam Vital Signs: Temp Pulse Resp BP Pulse Ox 20 122/77 99 08/24/17 12:01 08/24/17 12:01 08/24/17 12:01 Intake & Output 08/23/17 08/24/17 08/25/17 06:59 06:59 06:59 Weight 132.9 kg General appearance: PRESENT: no acute distress, well-developed, well-nourished Head exam: PRESENT: atraumatic, normocephalic Teeth exam: PRESENT: other - Upper incisors missed Neck exam: ABSENT: carotid bruit, JVD, lymphadenopathy, thyromegaly Respiratory exam: PRESENT: clear to auscultation elena. ABSENT: rales, rhonchi, wheezes Cardiovascular exam: PRESENT: RRR. ABSENT: diastolic murmur, rubs, systolic murmur GI/Abdominal exam: PRESENT: normal bowel sounds, soft, other - Morbidly obese abdomen. ABSENT: distended, guarding, mass, organolmegaly, rebound, tenderness Neurological exam: PRESENT: alert, awake, oriented to person, oriented to place , oriented to time, oriented to situation, CN II-XII grossly intact. ABSENT: motor sensory deficit Psychiatric exam: PRESENT: appropriate affect, normal mood. ABSENT: homicidal ideation, suicidal ideation Results Laboratory Results: 08/24/17 11:50 08/24/17 11:50 08/24/17 08/24/17 11:50 11:50 WBC 6.4 RBC 5.41 Hgb 14.8 Hct 43.2 MCV 80 MCH 27.4 MCHC 34.3 RDW 14.4 H Plt Count 281 Seg Neutrophils % 63.4 Lymphocytes % 24.2 Monocytes % 6.8 Eosinophils % 5.0 Basophils % 0.6 Absolute Neutrophils 4.0 Absolute Lymphocytes 1.5 Absolute Monocytes 0.4 Absolute Eosinophils 0.3 Absolute Basophils 0.0 Sodium 141.4 Potassium 3.7 Chloride 102 Carbon Dioxide 28 Anion Gap 11 BUN 12 Creatinine 0.47 L Est GFR ( Amer) > 60 Est GFR (Non-Af Amer) > 60 Glucose 129 H Calcium 8.8 Total Bilirubin 0.6 AST 24 ALT 37 Alkaline Phosphatase 86 Total Protein 6.4 Albumin 3.3 L 08/24/17 08/24/17 11:50 11:50 Creatine Kinase 42 L CK-MB (CK-2) 0.53 Troponin I 0.017 Impressions: Chest X-Ray 08/24/17 12:45 IMPRESSION: Bandlike atelectasis or scarring left lateral costophrenic sulcus unchanged from 2016. Assessment & Plan - Diagnosis (1) Chest pain Is this a current diagnosis for this admission?: Yes Plan: Patient to have cardiac stress test. We will trend his cardiac enzymes and will put him on manager monitoring. (2) Chronic atrial fibrillation Is this a current diagnosis for this admission?: Yes Plan: Rate controlled and I will continue his Coumadin (3) Obesity Is this a current diagnosis for this admission?: Yes Plan: Lifestyle modification advised.
[2017-08-24 16:34] LABS: INTERNATIONAL RATION (INR) 1.98; PROTHROMBIN TIME 23.5 SEC (11.4-15.4)
--- NOTE | 2017-08-24 19:45 | RADIOLOGY REPORT (SQ) ---
EXAM DESCRIPTION: NM LUNG VENT/PERF SCAN COMPLETED DATE/TIME: 08/24/2017 6:59 pm REASON FOR STUDY: chest pain COMPARISON: None. RADIONUCLIDE AND DOSE: 5.5 millicuries TC-99m MAA Intravenous 30.5 millicuries TC-99m DTPA Inhaled aerosol TECHNIQUE: Eight views of the lungs acquired post ventilation of DTPA aerosol. Eight matching views of the lungs acquired following injection of MAA. LIMITATIONS: Centralized heterogeneous distribution of DTPA aerosol during ventilatory phase. FINDINGS: VENTILATION: Centralized heterogeneous distribution of DTPA aerosol during ventilatory pha se. PERFUSION: Perfusion images with mildly heterogeneous activity. No ventilation-perfusion mismatche s. OTHER: No other significant finding. IMPRESSION: No ventilation-perfusion mismatches. TECHNICAL DOCUMENTATION: JOB ID: [id number] [place]-72 2010 [employer]- All Rights Reserved Reading location - IP/workstation name: [email or web address]
[2017-08-24] MEDS ORDERED: CYCLOBENZAPRINE HCL 10 MG TABLET PO PRN (23:05)
[2017-08-25 06:53] LABS: HEMATOCRIT 42.9 % (37.9-51.0); HEMOGLOBIN 14.7 g/dL (13.5-17.0); MEAN CORPUSCULAR HEMOGLOBIN 27.6 pg (27.0-33.4); MEAN CORPUSCULAR HGB CONC 34.3 g/dL (32.0-36.0); MEAN CORPUSCULAR VOLUME 80 fl (80-97); PLATELET COUNT 272 10^3/uL (150-450); RED BLOOD COUNT 5.34 10^6/uL (4.35-5.55); RED CELL DISTRIBUTION WIDTH 14.8 % (11.5-14.0); WHITE BLOOD COUNT 6.2 10^3/uL (4.0-10.5)
[2017-08-25 07:07] LABS: ANION GAP 9 (5-19); BLOOD UREA NITROGEN 15 mg/dL (7-20); CARBON DIOXIDE 29 mmol/L (22-30); CHLORIDE 105 mmol/L (98-107); CHOLESTEROL 119.09 mg/dL (0-200); GLUCOSE 125 mg/dL (75-110); SODIUM 142.8 mmol/L (137-145); TRIGLYCERIDES 104 mg/dL (<150)
[2017-08-25 07:18] LABS: DIRECT LDL 73 mg/dL (<100)
[2017-08-25] MEDS ORDERED: WARFARIN SODIUM 5 MG TABLET PO SCH (10:00)
[2017-08-25] MEDS ORDERED: (PENDING PHARMACY ID) (Warfarin Sodium 5 MG) PO SCH (10:00)
[2017-08-25] MEDS: NYSTATIN TOPICAL POWDER 15 GM TP SCH ×2 (10:17→17:16)
[2017-08-25] MEDS: LANSOPRAZOLE 30 MG TAB.RAP.DR PO SCH (10:17)
[2017-08-25] MEDS: METOPROLOL SUCCINATE 50 MG TAB.SR.24H PO SCH (10:17)
--- NOTE | 2017-08-25 12:01 | PDOC PROGRESS REPORT ---
Subjective Progress Note for:: 08/25/17 Subjective:: Patient seen and examined at bedside. He is awake alert and oriented. He reports his chest pain has subsided. Yesterday he had a VQ scan of the chest and reported as no ventilation perfusion mismatch. He is to set of cardiac enzymes are negative patient scheduled to have a stress test on Sunday. Reason For Visit: CHEST PAIN Physical Exam Vital Signs: Temp Pulse Resp BP Pulse Ox 97.8 F 75 20 126/73 H 98 08/25/17 08:00 08/25/17 08:00 08/25/17 08:00 08/25/17 08:00 08/25/17 08:00 Intake & Output 08/24/17 08/25/17 08/26/17 06:59 06:59 06:59 Intake Total 456 Output Total 325 Balance 131 Weight 130.1 kg General appearance: PRESENT: no acute distress Head exam: PRESENT: atraumatic, normocephalic Respiratory exam: PRESENT: clear to auscultation elena. ABSENT: rales, rhonchi, wheezes Cardiovascular exam: PRESENT: RRR. ABSENT: diastolic murmur, rubs, systolic murmur GI/Abdominal exam: PRESENT: ascites Neurological exam: PRESENT: alert, awake, oriented to person, oriented to place , oriented to time, oriented to situation, CN II-XII grossly intact. ABSENT: motor sensory deficit Psychiatric exam: PRESENT: appropriate affect, normal mood. ABSENT: homicidal ideation, suicidal ideation Results Laboratory Results: 08/25/17 06:44 08/25/17 06:44 08/25/17 08/25/17 06:44 06:44 WBC 6.2 RBC 5.34 Hgb 14.7 Hct 42.9 MCV 80 MCH 27.6 MCHC 34.3 RDW 14.8 H Plt Count 272 Sodium 142.8 Potassium 4.0 Chloride 105 Carbon Dioxide 29 Anion Gap 9 BUN 15 Creatinine 0.46 L Est GFR ( Amer) > 60 Est GFR (Non-Af Amer) > 60 Glucose 125 H Calcium 9.0 Triglycerides 104 Cholesterol 119.09 LDL Cholesterol Direct 73 VLDL Cholesterol 21.0 HDL Cholesterol 32 L 08/24/17 15:55 Troponin I 0.020 Impressions: Lung Scan-VQ NM 08/24/17 00:00 IMPRESSION: No ventilation-perfusion mismatches. Chest X-Ray 08/24/17 12:45 IMPRESSION: Bandlike atelectasis or scarring left lateral costophrenic sulcus unchanged from 2016. Assessment & Plan - Diagnosis (1) Chest pain Is this a current diagnosis for this admission?: Yes Plan: Patient to have cardiac stress test. We will trend his cardiac enzymes and will put him on conveyor monitor. (2) Chronic atrial fibrillation Is this a current diagnosis for this admission?: Yes Plan: Rate controlled and I will continue his Coumadin (3) Obesity Is this a current diagnosis for this admission?: Yes Plan: Lifestyle modification advised. - Time Time Spent with patient: 15-24 minutes
[2017-08-25] MEDS: WARFARIN SODIUM 5 MG TABLET PO SCH (22:55)
[2017-08-25] MEDS: SIMVASTATIN 10 MG TABLET PO SCH (22:55)
[2017-08-26] MEDS: NYSTATIN TOPICAL POWDER 15 GM TP SCH ×2 (10:27→17:21)
[2017-08-26] MEDS: LANSOPRAZOLE 30 MG TAB.RAP.DR PO SCH (10:28)
[2017-08-26] MEDS: METOPROLOL SUCCINATE 50 MG TAB.SR.24H PO SCH (10:28)
--- NOTE | 2017-08-26 11:19 | PDOC PROGRESS REPORT ---
Subjective Progress Note for:: 08/26/17 Subjective:: Patient remained chest pain-free. He is awake alert oriented. No acute constitutional symptoms. He is awaiting for cardiac stress test. Reason For Visit: CHEST PAIN Physical Exam Vital Signs: Temp Pulse Resp BP Pulse Ox 98.4 F 83 20 119/75 99 08/26/17 08:00 08/26/17 08:00 08/26/17 08:00 08/26/17 08:00 08/26/17 08:00 Intake & Output 08/25/17 08/26/17 08/27/17 06:59 06:59 06:59 Intake Total 456 600 Output Total 325 Balance 131 600 Weight 130.1 kg 130.9 kg General appearance: PRESENT: no acute distress, well-developed, well-nourished Head exam: PRESENT: atraumatic, normocephalic Respiratory exam: PRESENT: clear to auscultation elena. ABSENT: rales, rhonchi, wheezes Cardiovascular exam: PRESENT: RRR. ABSENT: diastolic murmur, rubs, systolic murmur GI/Abdominal exam: PRESENT: normal bowel sounds, soft, other - Morbidly obese abdomen. ABSENT: distended, guarding, mass, organolmegaly, rebound, tenderness Neurological exam: PRESENT: alert, awake, oriented to person, oriented to place , oriented to time, oriented to situation, CN II-XII grossly intact. ABSENT: motor sensory deficit Psychiatric exam: PRESENT: appropriate affect, normal mood. ABSENT: homicidal ideation, suicidal ideation Results Laboratory Results: 08/25/17 06:44 08/25/17 06:44 08/24/17 15:55 Troponin I 0.020 Impressions: Lung Scan-VQ NM 08/24/17 00:00 IMPRESSION: No ventilation-perfusion mismatches. Chest X-Ray 08/24/17 12:45 IMPRESSION: Bandlike atelectasis or scarring left lateral costophrenic sulcus unchanged from 2016. Assessment & Plan - Diagnosis (1) Chest pain Is this a current diagnosis for this admission?: Yes Plan: Resolved (2) Chronic atrial fibrillation Is this a current diagnosis for this admission?: Yes Plan: His heart rate is controlled and has been on Coumadin for anticoagulation. If his insurance approved him I will switch him to Eliquis. (3) Obesity Is this a current diagnosis for this admission?: Yes Plan: Lifestyle modification advised. - Time Time Spent with patient: 25-34 minutes
[2017-08-26] MEDS: SIMVASTATIN 10 MG TABLET PO SCH (22:17)
[2017-08-26] MEDS: WARFARIN SODIUM 5 MG TABLET PO SCH (22:17)
[2017-08-27] MEDS: METOPROLOL SUCCINATE 50 MG TAB.SR.24H PO SCH (11:02)
[2017-08-27] MEDS: LANSOPRAZOLE 30 MG TAB.RAP.DR PO SCH (11:02)
[2017-08-27] MEDS: NYSTATIN TOPICAL POWDER 15 GM TP SCH ×2 (11:03→17:21)
--- NOTE | 2017-08-27 14:44 | PDOC PROGRESS REPORT ---
Subjective Subjective:: Patient does not have any new complaints. He is awaiting for stress test. Reason For Visit: CHEST PAIN Physical Exam Vital Signs: Temp Pulse Resp BP Pulse Ox 98.9 F 86 13 136/87 H 97 08/27/17 11:36 08/27/17 11:36 08/27/17 11:36 08/27/17 11:36 08/27/17 11:36 Intake & Output 08/26/17 08/27/17 08/28/17 06:59 06:59 06:59 Intake Total 600 1184 Output Total 1325 Balance 600 -141 Weight 130.9 kg 131.6 kg General appearance: PRESENT: no acute distress, well-developed, well-nourished Head exam: PRESENT: atraumatic, normocephalic Neck exam: ABSENT: carotid bruit, JVD, lymphadenopathy, thyromegaly Respiratory exam: PRESENT: clear to auscultation elena. ABSENT: rales, rhonchi, wheezes Cardiovascular exam: PRESENT: RRR. ABSENT: diastolic murmur, rubs, systolic murmur GI/Abdominal exam: PRESENT: normal bowel sounds, soft. ABSENT: distended, guarding, mass, organolmegaly, rebound, tenderness Neurological exam: PRESENT: alert, awake, oriented to time, oriented to situation Psychiatric exam: PRESENT: appropriate affect, normal mood. ABSENT: homicidal ideation, suicidal ideation Results Laboratory Results: 08/25/17 06:44 08/25/17 06:44 08/24/17 15:55 Troponin I 0.020 Impressions: Lung Scan-VQ NM 08/24/17 00:00 IMPRESSION: No ventilation-perfusion mismatches. Chest X-Ray 08/24/17 12:45 IMPRESSION: Bandlike atelectasis or scarring left lateral costophrenic sulcus unchanged from 2016. Assessment & Plan - Diagnosis (1) Chest pain Is this a current diagnosis for this admission?: Yes Plan: The chest pain has resolved with patient waiting for stress test tomorrow. (2) Chronic atrial fibrillation Is this a current diagnosis for this admission?: Yes Plan: His heart rate is controlled and has been on Coumadin for anticoagulation. If his insurance approved him I will switch him to Eliquis. (3) Obesity Is this a current diagnosis for this admission?: Yes Plan: Lifestyle modification advised. (4) Cerebral palsy Is this a current diagnosis for this admission?: Yes Plan: Stable.
[2017-08-27] MEDS: WARFARIN SODIUM 5 MG TABLET PO SCH (21:25)
[2017-08-27] MEDS: SIMVASTATIN 10 MG TABLET PO SCH (21:25)
[2017-08-28] MEDS: NYSTATIN TOPICAL POWDER 15 GM TP SCH (10:58)
[2017-08-28] MEDS: LANSOPRAZOLE 30 MG TAB.RAP.DR PO SCH (10:58)
[2017-08-28 11:48] VITALS: BP 147/82
--- NOTE | 2017-08-28 12:45 | DRAGON STRESS TEST REPORT ---
Intravenous Lexiscan Cardiolite stress test using single photon emmision computerized tomography. Date of procedure: 08/28/2017. Ordering Provider: . Patient's status: In Patient Indication: Chest pain. Coronary risk factors: Age, hypertension, and dyslipidemia. Patient also has atrial fibrillation. Resting EKG: Atrial fibrillation. Nonspecific minor ST-T changes diffuse. Stress EKG: No changes of ischemia. The patient had no chest pain or discomfort, and there were no ventricular arrhythmias seen. Reason for termination: Protocol. Conclusions: Normal EKG and hemodynamic response to IV Lexiscan. Nuclear data: At rest the patient was given 16.01 millicuries of technetium 99m sestamibi injected intravenously. As per protocol rest non gated SPECT images were obtained. Subsequently the patient was given intravenous Lexiscan at a dose of 0.4 mg in 5 mL intravenously, followed by flush with normal saline. Subsequently the stress dose of 45.5 millicuries of technetium 99m sestamibi was injected intravenously. As per protocol stress gated images were obtained. Nuclear interpretation: Review of images showed that all segments of the myocardium had normal perfusion at rest, and normal perfusion post stress with IV Lexiscan. All segments of the myocardium had normal motion, contraction, and thickening by gated study. T. I D. ratio was normal at 1.25. Visually the T ID ratio was normal. Computer read rest, and stress left ventricular ejection fraction were 54 %, and 50 %, respectively. Visually both the stress and rest ejection fractions were normal, and greater than 55%. Conclusion: 1. There is no scintigraphic evidence of Lexiscan induced myocardial ischemia. 2. There is no scintigraphic evidence of myocardial infarction/scar. Recommendations: Aggressive risk factor modification, and treating the underlying co- morbidities. MTDD
--- NOTE | 2017-08-28 12:56 | PDOC DISCHARGE SUMMARY ---
General - Admit/Disc Date/PCP Admission Date/Primary Care Provider: 08/24/17 14:37 STEVEN DEL RIO MD Discharge Date: 08/28/17 - Discharge Diagnosis (1) Chest pain Is this a current diagnosis for this admission?: Yes (2) Chronic atrial fibrillation Is this a current diagnosis for this admission?: Yes (3) Obesity Is this a current diagnosis for this admission?: Yes (4) Cerebral palsy Is this a current diagnosis for this admission?: Yes - Additional Information Resuscitation Status: Full Code Discharge Diet: Regular Discharge Activity: Activity As Tolerated Home Medications: Furosemide 80 mg PO DAILYP PRN 04/24/15 Metoprolol Succinate [Toprol XL 100 mg Tablet] 100 mg PO DAILY 04/24/15 Omeprazole 40 mg PO DAILY 04/24/15 Simvastatin 20 mg PO DAILY 04/24/15 Warfarin Sodium 5 mg PO DAILY 04/24/15 Cyclobenzaprine HCl [Flexeril 10 mg Tablet] 10 mg PO TIDP PRN 08/24/17 History of Present Illness History of Present Illness: ESA AMADO is a 67 year old male patient with past medical history of cerebral palsy, hypertension, hyperlipidemia, osteoarthritis, atrial fibrillation and morbid obesity presents with chest pain. Patient claims he has been in his usual baseline state of health up until 10 AM this morning when he woke up with chest pain localized to his chest centrally and radiating between 2 of his shoulder blades. Patient was given by EMS nitroglycerin and he reports this the chest pain relieved with it. Patient denies chills, fever, palpitation or diaphoresis. He denied abdominal pain, nausea, vomiting, diarrhea or any urinary complaints. No headache dizziness or blurred vision. His initial blood workup and chest x-ray are unremarkable. I discussed with the ER attending the possibility of pulmonary embolism so patient is going to have CTA of the chest. Hospital Course Hospital Course: This is 67 years old male patient admitted with chief complaint of chest pain since patient has multiple risk factors he is admitted for observation to rule out acute coronary syndrome. History set of cardiac enzymes negative his EKGs revealing and this morning patient has cardiac stress test which is negative. He stays uncomplicated and patient remained chest pain- free throughout his stay. This morning I seen patient resting in bed comfortably he is not in pain or distress. I will continue all his home medication and patient is good to discharge. Physical Exam Vital Signs: Temp Pulse Resp BP Pulse Ox 98.4 F 107 H 18 147/82 H 96 08/28/17 11:47 08/28/17 11:47 08/28/17 11:47 08/28/17 11:47 08/28/17 11:47 Intake & Output 08/27/17 08/28/17 08/29/17 06:59 06:59 06:59 Intake Total 1184 796 Output Total 1325 800 Balance -141 -4 Weight 131.6 kg 137.2 kg General appearance: PRESENT: no acute distress, well-developed, well-nourished Head exam: PRESENT: atraumatic, normocephalic Eye exam: PRESENT: conjunctiva pink, EOMI, PERRLA. ABSENT: scleral icterus Neck exam: ABSENT: carotid bruit, JVD, lymphadenopathy, thyromegaly Respiratory exam: PRESENT: clear to auscultation elena. ABSENT: rales, rhonchi, wheezes Cardiovascular exam: PRESENT: RRR. ABSENT: diastolic murmur, rubs, systolic murmur GI/Abdominal exam: PRESENT: normal bowel sounds, soft. ABSENT: distended, guarding, mass, organolmegaly, rebound, tenderness Neurological exam: PRESENT: alert, awake, oriented to person, oriented to place , oriented to time, oriented to situation, CN II-XII grossly intact. ABSENT: motor sensory deficit Psychiatric exam: PRESENT: appropriate affect, normal mood. ABSENT: homicidal ideation, suicidal ideation Results Laboratory Results: 08/25/17 06:44 08/25/17 06:44 08/24/17 08/28/17 15:55 07:04 Troponin I 0.020 < 0.012 Impressions: Lung Scan-VQ NM 08/24/17 00:00 IMPRESSION: No ventilation-perfusion mismatches. Chest X-Ray 08/24/17 12:45 IMPRESSION: Bandlike atelectasis or scarring left lateral costophrenic sulcus unchanged from 2016. Qualifiers - * PATIENT BEING DISCHARGED WITH ANY OF THE FOLLOWING DIAGNOSIS: No
[2017-08-28] MEDS ORDERED: REGADENOSON INJ 0.4 MG/5 ML DISP.SYRIN IV ONE (13:35)
[2017-08-28] MEDS: METOPROLOL SUCCINATE 50 MG TAB.SR.24H PO SCH (14:17)
== END 2017-08-28 15:06 | disposition home or self-care (01) ==
LOC: ER 11:08 → EH 14:37 → 4S 17:30
PROVIDERS: ADMIT Internal Medicine; ATTEND Internal Medicine
DX: R07.9 Chest pain, unspecified (principal); I48.2 Chronic atrial fibrillation; G80.9 Cerebral palsy, unspecified; E66.01 Morbid (severe) obesity due to excess calories; I10 Essential (primary) hypertension; E78.5 Hyperlipidemia, unspecified; M19.90 Unspecified osteoarthritis, unspecified site; K21.9 Gastro-esophageal reflux disease without esophagitis; Z68.42 Body mass index [BMI] 45.0-49.9, adult; Z79.899 Other long term (current) drug therapy; Z79.02 Long term (current) use of antithrombotics/antiplatelets
CPT/HCPCS: 93005; 99285; 36415 ×3; 82553; 82550; 85025; 85027; 85610; 80048; 80053; 84484 ×2; 83036; 85379; 80061; 93017; 71045; 78452; 78582; 93010; G0378 ×6; A9500; A9540; A9567; J2785; A9270 ×15; J3490 ×4; Q9969 ×2

== ENCOUNTER 2017-12-06 10:43 | Emergency (ER) | payer MEDICARE, MEDICAID ==
--- NOTE | 2017-12-06 11:41 | RADIOLOGY REPORT (SQ) ---
EXAM DESCRIPTION: KNEE RIGHT 4 VIEWS COMPLETED DATE/TIME: 12/06/2017 11:31 am REASON FOR STUDY: pain COMPARISON: 06/23/2017 right knee two views NUMBER OF VIEWS: Four views. TECHNIQUE: AP, lateral, and both oblique radiographic images acquired of the right knee. LIMITATIONS: None. FINDINGS: MINERALIZATION: Osteoporotic BONES: No acute fracture or dislocation. No worrisome bone lesions. JOINT: There is bony fusion of the patella to the distal femur with ankylosis at the patellofemoral j oint. This is unchanged from 06/23/2017. SOFT TISSUES: No soft tissue swelling. No radio-opaque foreign body. OTHER: No other significant finding. IMPRESSION: Profoundly osteoporotic Fusion at the patellofemoral joint No acute fracture or malalignment TECHNICAL DOCUMENTATION: JOB ID: [id number] [employer]- All Rights Reserved Reading location - IP/workstation name: [email or web address]
--- NOTE | 2017-12-06 12:35 | ER Document Report ---
ED Extremity Problem, Lower - General Chief Complaint: Knee Pain Stated Complaint: KNEE PAIN Time Seen by Provider: 12/06/17 11:40 Information source: Patient Notes: Patient is a 67-year-old male with past medical history as recorded including multiple lower extremity surgeries and cerebral palsy who presents today stating acutely at around 10:30 PM yesterday being transferred he felt acute pain to the right knee. He states that it "buckled". He denies pain to his hip , calderon, ankle, or foot. TRAVEL OUTSIDE OF THE [place] IN LAST 30 DAYS: No - HPI Patient complains to provider of: Pain Location: Knee Occurred: Other - See above Where: Home Onset/Duration: Sudden Quality of pain: Achy Severity: Moderate Pain Level: 2 Context: Other - See above Recent injury: Yes Associated symptoms: Other - See above Exacerbated by: Movement Relieved by: Rest - Related Data Allergies/Adverse Reactions: No Known Drug Allergies Allergy (Unknown, Verified 08/18/17 09:12) bee stings Allergy (Uncoded 08/18/17 09:12) Past Medical History - General Information source: Patient - Social History Smoking Status: Unknown if Ever Smoked Cigarette use (# per day): No Chew tobacco use (# tins/day): No Smoking Education Provided: No Frequency of alcohol use: None Family History: Reviewed & Not Pertinent, Other - Past Medical History Cardiac Medical History: Reports: Hx Atrial Fibrillation, Hx Hypercholesterolemia, Hx Hypertension Renal/ Medical History: Denies: Hx Peritoneal Dialysis GI Medical History: Reports: Hx Gastroesophageal Reflux Disease Musculoskeletal Medical History: Reports Hx Arthritis - osteoarthritis Past Surgical History: Reports: Hx Orthopedic Surgery - Left Knee, Hx Tonsillectomy, Other - 11 surgeries on legs for CP - Immunizations Immunizations up to date: Yes Hx Diphtheria, Pertussis, Tetanus Vaccination: Yes Physical Exam - Vital signs Notes: Reviewed vital signs and nursing note as charted by RN. CONSTITUTIONAL: Alert and oriented and responds appropriately to questions. Well -appearing; well-nourished HEAD: Normocephalic; atraumatic ABD/GI: Normal bowel sounds; non-distended; soft, non-tender; no palpable organomegaly or masses BACK: The back appears normal and is non-tender to palpation EXT: Patient has limited no movement of the lower extremities which is baseline for the patient. He is able to wiggle his toes. I do not detect any obvious swelling or deformity to the extremities. Patient has some mild tenderness to the distal right femur and right knee. No obvious malformations. No overlying skin erythema. Pulses and sensation is intact distally NEURO: See above PSYCH: The patient's mood and manner are appropriate. Grooming and personal hygiene are appropriate. Course - Re-evaluation Re-evalutation: 12/06/17 12:35 Given the above history and physical examination we will obtain an x-ray of the right knee and femur. I do believe DVT or other acute pathology to be unlikely. 12/06/17 14:15 X-ray of the femur and knee as recorded. 12/06/17 14:48 X-rays as recorded. No change in exam. Patient will be discharged home with strict return precautions and follow-up with the primary provider. Given that the patient's pain started acutely and has no calf pain or leg swelling, I do believe DVT to be unlikely at this time. Discharge - Discharge Clinical Impression: Right leg pain Condition: Good Disposition: HOME, SELF-CARE Additional Instructions: Come back immediately with any increased pain, change in location or quality of pain, leg swelling, chest pain, or any other acute problems. Referrals: STEVEN DEL RIO MD [Primary Care Provider] - Follow up as needed
--- NOTE | 2017-12-06 14:08 | RADIOLOGY REPORT (SQ) ---
EXAM DESCRIPTION: FEMUR RIGHT COMPLETED DATE/TIME: 12/06/2017 1:51 pm REASON FOR STUDY: 13h, pain COMPARISON: None. NUMBER OF VIEWS: Two views. TECHNIQUE: Two radiographic images acquired of the right femur to include hip and knee in at least o ne projection. LIMITATIONS: None. FINDINGS: MINERALIZATION: Osteopenia. BONES: There is dysplasia of the right hip. There is deformity of the femur which is curved. No fra cture is appreciated. SOFT TISSUES: No obvious swelling or foreign body. OTHER: No other significant finding. IMPRESSION: Dysplasia of the right hip and deformity of the femur. No fracture is seen. Osteopenia is present. TECHNICAL DOCUMENTATION: JOB ID: [id number] [employer]- All Rights Reserved Reading location - IP/workstation name: [email or web address]
[2017-12-06] MEDS ORDERED: OXYCODONE-ACETAMINOPHEN 5-325 MG TABLET PO ONE (14:53)
[2017-12-06 15:46] VITALS: BP 133/83
== END 2017-12-06 15:49 | disposition home or self-care (01) ==
LOC: ER 10:43
DX: M79.604 Pain in right leg (principal)
CPT/HCPCS: 99284; 73552; 73564; A9270

== ENCOUNTER 2018-04-07 14:35 | Emergency (ER) | payer MEDICARE, MEDICAID ==
[2018-04-07] MEDS ORDERED: DIPHENHYDRAMINE HCL 50 MG CAPSULE PO ONE (14:54)
[2018-04-07] MEDS ORDERED: PERMETHRIN 1% LOTION 59 ML TP ONE ×2 (14:55→15:06)
--- NOTE | 2018-04-07 14:58 | ER Document Report ---
ED General - General Chief Complaint: Rash Stated Complaint: SKIN ISSUE Time Seen by Provider: 04/07/18 14:49 Mode of Arrival: Stretcher Information source: Patient, [facility] Records Notes: 68-year-old male with atrial fibrillation, hyperlipidemia, hypertension, GERD presents with complaint of rash to the left forearm that started 1 week prior to arrival. Patient describes it as pruritic. Denies any other members of the household with a rash. Admits to recent bedbug findings which he states they called the unit operator. EMS reports that the patient's houses unkept and there are multiple people living in the patient's garage. Patient denies any other symptoms of fever, chills, nausea, vomiting, chest pains, shortness of breath. He states he is otherwise been well. TRAVEL OUTSIDE OF THE [place] IN LAST 30 DAYS: No - HPI Onset: Last week Onset/Duration: Gradual, Persistent Quality of pain: No pain Severity: None Pain Level: Denies Associated symptoms: denies: Chest pain, Fever, Nausea, Vomiting, Shortness of breath Exacerbated by: Denies Relieved by: Denies Similar symptoms previously: No Recently seen / treated by doctor: No - Related Data Allergies/Adverse Reactions: No Known Drug Allergies Allergy (Unknown, Verified 08/18/17 09:12) bee stings Allergy (Uncoded 08/18/17 09:12) Past Medical History - General Information source: Patient, [facility] Records - Social History Smoking Status: Former Smoker Frequency of alcohol use: None Drug Abuse: None Lives with: Family Family History: Reviewed & Not Pertinent, Other Patient has suicidal ideation: No Patient has homicidal ideation: No - Past Medical History Cardiac Medical History: Reports: Hx Atrial Fibrillation, Hx Hypercholesterolemia, Hx Hypertension Renal/ Medical History: Denies: Hx Peritoneal Dialysis GI Medical History: Reports: Hx Gastroesophageal Reflux Disease Musculoskeletal Medical History: Reports Hx Arthritis - osteoarthritis Past Surgical History: Reports: Hx Orthopedic Surgery - Left Knee, Hx Tonsillectomy, Other - 11 surgeries on legs for CP - Immunizations Immunizations up to date: Yes Hx Diphtheria, Pertussis, Tetanus Vaccination: Yes Review of Systems - Review of Systems Notes: REVIEW OF SYSTEMS: CONSTITUTIONAL : Denies fever, chills, or sweats. Denies recent illness. Denies weight loss, recent hospitalizations. EENT: Denies visual changes, eye pain. Denies sore throat, oral lesions, difficulty swallowing. CARDIOVASCULAR: Denies chest pain. Denies palpitations. Denies lower extremity edema. RESPIRATORY: Denies cough. Denies shortness of breath, wheezing. GASTROINTESTINAL: Denies abdominal pain or distention. Denies nausea, vomiting, or diarrhea. Denies blood in vomitus, stools, or per rectum. Denies black, tarry stools. Denies constipation. GENITOURINARY: Denies difficulty urinating, painful urination, frequency, blood in urine, testicular pain or penile discharge. MUSCULOSKELETAL: Denies back or neck pain or stiffness. Denies joint pain or swelling. SKIN: + Rash left forearm HEMATOLOGIC : Denies easy bruising or bleeding. LYMPHATIC: Denies swollen glands. NEUROLOGICAL: Denies confusion or altered mental status. Denies loss of consciousness. Denies dizziness or lightheadedness. Denies headache. Denies weakness or paralysis. Denies problems difficulty with ambulation, slurred speech. Denies sensory loss, numbness, or tingling. Denies seizures. PSYCHIATRIC: Denies anxiety or stress. Denies depression, suicidal ideation, or Physical Exam - Vital signs Vitals: Pulse Ox 95 04/07/18 15:07 - Notes Notes: PHYSICAL EXAMINATION: GENERAL: Well-appearing, well-nourished and in no acute distress. HEAD: Atraumatic, normocephalic. EYES: Pupils equal round and reactive to light, extraocular movements intact, sclera anicteric, conjunctiva are normal. ENT: Nares patent, oropharynx clear without exudates. Moist mucous membranes. NECK: Normal range of motion, supple without lymphadenopathy LUNGS: Breath sounds clear to auscultation bilaterally and equal. No wheezes rales or rhonchi. HEART: Regular rate and rhythm without murmurs ABDOMEN: Soft, nontender, nondistended abdomen. No guarding, no rebound. No masses appreciated. Musculoskeletal: Normal range of motion, no pitting or edema. No cyanosis. NEUROLOGICAL: Cranial nerves grossly intact. Normal speech, normal gait. Normal sensory, motor exams PSYCH: Normal mood, normal affect. SKIN: Left forearm with pinpoint erythematous lesions consistent with a bedbug rash. Course - Re-evaluation Re-evalutation: Temp Pulse Resp BP Pulse Ox 98.8 F 158/79 H 97 04/07/18 15:10 04/07/18 15:10 04/07/18 15:10 04/07/18 15:20 Patient presents with complaint of rash to the left forearm. Patient reports recent history of bedbugs at home. Rash consistent with bedbug bites. Benadryl given for itching. Permethrin provided to the patient to the emergency department. Patient discharged home in stable condition. Patient was evaluated and treated as appropriate for the patient's presenting symptoms and complaint, with consideration of any critical or life threatening conditions that may be associated with their obtained history and exam as noted above. All results were discussed with patient. Patient provided the opportunity to ask questions, and express concerns. Patient was educated on treatments based on their presumed diagnosis as noted above. At this time we will discharge the patient with return precautions and follow-up recommendations. Verbal discharge instructions given a the bedside. Medication warnings reviewed. Patient is in agreement with this plan and has verbalized understanding of return precautions. After performing a Medical Screening Examination, I estimate there is LOW risk for any life threatening rash. At this time the patient looks extremely well and there are no signs of systemic infection, however this may change at any time and the rash may change. I have reevaluated this patient multiple times and no significant life threatening changes are noted. The patient and I have discussed the diagnosis and risks, and we agree with discharging home with close follow-up with the understanding that symptoms and presentations can change. We also discussed returning to the Emergency Department immediately if new or worsening symptoms occur. We have discussed the symptoms which are most concerning (e.g., changing or worsening pain, fever, numbness, weakness, cool or painful digits) that necessitate immediate return. After careful consideration I feel that that patient can be safely discharged from the emergency department, they were advised to followup with a primary care physician in 2-3 days. Dictation on this chart was performed using voice recognition software and may result in unintended grammatical, spelling, syntax or errors. 04/07/18 15:21 - Vital Signs Vital signs: Temp Pulse Resp BP Pulse Ox 98.8 F 158/79 H 97 04/07/18 15:10 04/07/18 15:10 04/07/18 15:10 Discharge - Discharge Clinical Impression: Rash Bedbug bite Qualifiers: Encounter type: initial encounter Qualified Code(s): W57.XXXA - Bitten or stung by nonvenomous insect and other nonvenomous arthropods, initial encounter Condition: Good Disposition: HOME, SELF-CARE Additional Instructions: Your rash today is consistent with bedbug bites. If you have not done so already you need to clean your bedding and clothes in hot water and then place him in a please apply the cream that we have provided you and leave it on for 24 hours. You can take Benadryl 25 mg every 6-8 hours as needed for itching. Forms: Elevated Blood Pressure Referrals: STEVEN DEL RIO MD [Primary Care Provider] - Follow up as needed
[2018-04-07 15:18] VITALS: BP 158/79
== END 2018-04-07 18:08 | disposition home or self-care (01) ==
LOC: ER 14:35
DX: R21 Rash and other nonspecific skin eruption (principal); T14.8XXA Other injury of unspecified body region, initial encounter; W57.XXXA Bitten or stung by nonvenomous insect and other nonvenomous arthropods, initial encounter; I10 Essential (primary) hypertension; Z91.030 Bee allergy status; Z87.891 Personal history of nicotine dependence
CPT/HCPCS: 99284; A9270; J3490

== ENCOUNTER 2018-12-23 23:55 | Emergency (ER) | payer MEDICARE, MEDICAID ==
--- NOTE | 2018-12-24 01:01 | ER Document Report ---
ED General - General Chief Complaint: Shortness Of Breath Stated Complaint: DIFFICULTY BREATHING Time Seen by Provider: 12/24/18 00:05 Primary Care Provider: FRANKIE MUELLER MD [ACTIVE STAFF] - Follow up as needed Information source: Patient TRAVEL OUTSIDE OF THE [place] IN LAST 30 DAYS: No - HPI Notes: Patient presents with cough. Patient is also felt short of breath. This started today. Some chest pressure. No fever or chills. No vomiting or diarrhea. Patient received a breathing treatment in route and states this did make him feel better. The breathing difficulty was worse with exertion and better with rest however patient is chronically wheelchair-bound due to cerebral palsy. Patient denies any chronic lung disease such as COPD. Patient denies any history of congestive heart failure. Patient has had no rashes. Patient symptoms have been moderate. They have been constant. They are best with a breathing treatment and worse with exertion as above. He states currently he is feeling better. - Related Data Allergies/Adverse Reactions: No Known Drug Allergies Allergy (Unknown, Verified 08/18/17 09:12) bee stings Allergy (Uncoded 08/18/17 09:12) Past Medical History - General Information source: Patient - Social History Smoking Status: Never Smoker Frequency of alcohol use: None Drug Abuse: None Family History: Reviewed & Not Pertinent, Other Patient has suicidal ideation: No Patient has homicidal ideation: No - Past Medical History Cardiac Medical History: Reports: Hx Atrial Fibrillation, Hx Hyperch olesterolemia, Hx Hypertension Denies: Hx Coronary Artery Disease, Hx Heart Attack Pulmonary Medical History: Denies: Hx Asthma, Hx Bronchitis, Hx COPD, Hx Pneumonia Neurological Medical History: Denies: Hx Cerebrovascular Accident, Hx Seizures Renal/ Medical History: Denies: Hx Peritoneal Dialysis GI Medical History: Reports: Hx Gastroesophageal Reflux Disease Musculoskeletal Medical History: Reports Hx Arthritis - osteoarthritis Past Surgical History: Reports: Hx Orthopedic Surgery - Left Knee, Hx Tonsillectomy, Other - 11 surgeries on legs for CP - Immunizations Immunizations up to date: Yes Hx Diphtheria, Pertussis, Tetanus Vaccination: Yes Review of Systems - Review of Systems Constitutional: Malaise, Weakness Cardiovascular: Chest pain, Palpitations Respiratory: Cough, Short of breath Gastrointestinal: denies: Diarrhea, Vomiting -: Yes All other systems reviewed and negative Physical Exam - Vital signs Vitals: Temp Resp BP 98.3 F 24 H 156/96 H 12/24/18 00:09 12/24/18 00:09 12/24/18 00:09 Interpretation: Hypertensive - General General appearance: Appears well, Alert - HEENT Head: Normocephalic, Atraumatic Eyes: Normal Pupils: PERRL - Respiratory Respiratory status: No respiratory distress Chest status: Nontender Breath sounds: Decreased air movement, Rhonchi Chest palpation: Normal - Cardiovascular Rhythm: Irregularly irregular, Tachycardia Heart sounds: Normal auscultation Murmur: No - Abdominal Inspection: Normal Distension: No distension Bowel sounds: Normal Tenderness: Nontender Organomegaly: No organomegaly - Back Back: Normal, Nontender - Extremities General upper extremity: Normal inspection, Nontender, Normal color, Normal ROM, Normal temperature General lower extremity: Normal inspection, Nontender, Normal color, Normal ROM, Normal temperature, Normal weight bearing. No: Clarke's sign - Neurological Neuro grossly intact: Yes Cognition: Normal Orientation: AAOx4 Eduard Coma Scale Eye Opening: Spontaneous Eduard Coma Scale Verbal: Oriented Banner Coma Scale Motor: Obeys Commands Eduard Coma Scale Total: 15 Speech: Normal Motor strength normal: LUE, RUE, LLE, RLE Sensory: Normal - Psychological Associated symptoms: Normal affect, Normal mood - Skin Skin Temperature: Warm Skin Moisture: Dry Skin Color: Normal Course - Re-evaluation Re-evalutation: 12/24/18 02:17 Patient reassessed at this time. He is saturating 92 to 93% on room air without any labored respirations. He still has some mild wheezing so we will try a nebulizer. He states he has had no cold symptoms but has felt that he has thick secretions that he cannot cough up. He is currently on Lasix 80 mg at night. He does not feel that he has been gaining weight. His BNP is less than his previous BNP. His chest x-ray shows no evidence of infiltrate or edema. He has not extremely edematous on exam. At this time I do not believe the patient woul d benefit from further inpatient evaluation. I will discharge the patient home on antibiotics and with an inhaler and have him follow-up with his primary care physician. - Vital Signs Vital signs: Temp Pulse Resp BP Pulse Ox 98.3 F 22 H 154/85 H 92 12/24/18 00:09 12/24/18 02:01 12/24/18 02:00 12/24/18 02:01 - Laboratory Result Diagrams: 12/24/18 00:48 12/24/18 00:48 Laboratory results interpreted by me: 12/24/18 12/24/18 12/24/18 00:48 00:48 00:48 MCV 78 L MCH 26.7 L RDW 14.5 H Lymph % (Auto) 12.3 L Seg Neutrophils % 78.3 H Sodium 133.7 L Potassium 3.3 L Chloride 95 L Creatinine 0.48 L Glucose 151 H NT-Pro-B Natriuret Pep 1210 H - Diagnostic Test Radiology reviewed: Image reviewed, Reports reviewed - EKG Interpretation by Me Rate: Normal - 99 Rhythm: A.Fib [place]/QRS: IVCD Discharge - Discharge Clinical Impression: URI (upper respiratory infection) Qualifiers: URI type: unspecified URI Qualified Code(s): J06.9 - Acute upper respiratory infection, unspecified Condition: Stable Disposition: HOME, SELF-CARE Instructions: Upper Respiratory Illness ([facility]) Additional Instructions: Please call your primary care doctor as soon as possible to arrange follow-up Prescriptions: Cefdinir 300 mg PO BID 7 Days #14 capsule Albuterol Sulfate [Proair HFA Inhalation Aerosol 8.5 gm MDI] 2 puff IH Q4H PRN #1 mdi PRN Reason: Referrals: FRANKIE MUELLER MD [ACTIVE STAFF] - Follow up tomorrow
--- NOTE | 2018-12-24 01:02 | RADIOLOGY REPORT (SQ) ---
EXAM DESCRIPTION: [facility]: XR CHEST 1 VIEW CLINICAL HISTORY: 68 years Male, cough COMPARISON: 08/24/2017. A report from 11/29/2018 was reviewed, but there are no images with that exam. FINDINGS: Lungs are clear, with no focal infiltrate, pneumothorax, or pleural effusion. Mediastinum is within normal limits for this positioning. Bony structures are unremarkable. IMPRESSION: 1. No acute pulmonary findings.
[2018-12-24 01:13] LABS: ABSOLUTE BASOPHILS # (AUTO) 0.1 10^3/uL (0.0-0.2); ABSOLUTE EOSINOPHILS # (AUTO) 0.4 10^3/uL (0.0-0.6); ABSOLUTE LYMPHOCYTES (AUTO) 1.2 10^3/uL (0.5-4.7); ABSOLUTE MONOCYTES (AUTO) 0.5 10^3/uL (0.1-1.4); ABSOLUTE NEUT (AUTO) 7.8 10^3/uL (1.7-8.2); BASOPHILS % (AUTO) 0.7 % (0-2); EOSINOPHILS % (AUTO) 3.9 % (0-6); HEMATOCRIT 41.7 % (37.9-51.0); HEMOGLOBIN 14.3 g/dL (13.5-17.0); LYMPHOCYTES % (AUTO) 12.3 % (13-45); MEAN CORPUSCULAR HEMOGLOBIN 26.7 pg (27.0-33.4); MEAN CORPUSCULAR HGB CONC 34.3 g/dL (32.0-36.0); MEAN CORPUSCULAR VOLUME 78 fl (80-97); MONOCYTES % (AUTO) 4.8 % (3-13); PLATELET COUNT 296 10^3/uL (150-450); RED BLOOD COUNT 5.36 10^6/uL (4.35-5.55); RED CELL DISTRIBUTION WIDTH 14.5 % (11.5-14.0); SEGMENTED NEUTROPHILS % (AUTO) 78.3 % (42-78); TOTAL CELLS COUNTED % (AUTO) 100 %; WHITE BLOOD COUNT 9.9 10^3/uL (4.0-10.5)
[2018-12-24 01:33] LABS: ALBUMIN 3.7 g/dL (3.5-5.0); ALKALINE PHOSPHATASE 95 U/L (38-126); ANION GAP 11 (5-19); ASPARTATE AMINO TRANSFERASE 26 U/L (17-59); BILIRUBIN,DIRECT 0.3 mg/dL (0.0-0.4); BILIRUBIN,TOTAL 1.3 mg/dL (0.2-1.3); BLOOD UREA NITROGEN 10 mg/dL (7-20); CARBON DIOXIDE 28 mmol/L (22-30); CHLORIDE 95 mmol/L (98-107); GLUCOSE 151 mg/dL (75-110); POTASSIUM 3.3 mmol/L (3.6-5.0); TOTAL PROTEIN 7.2 g/dL (6.3-8.2)
[2018-12-24 01:45] LABS: TROPONIN I 0.03 ng/mL
[2018-12-24] MEDS ORDERED: FUROSEMIDE INJ/PF 40 MG/4 ML SDV IV ONE (02:06)
[2018-12-24] MEDS ORDERED: ALBUTEROL SULFATE 0.083% NEB 2.5 MG/3 ML AMPUL NEB ONE (02:16)
[2018-12-24] MEDS ORDERED: AMOXICILLIN TRIHYDRATE 500 MG CAPSULE PO ONE (02:17)
[2018-12-24 03:34] VITALS: BP 164/98
--- NOTE | 2018-12-25 11:41 | EKG REPORT ---
SEVERITY:- ABNORMAL ECG - ATRIAL FIBRILLATION, V-RATE 72-150 NONSPECIFIC INTRAVENTRICULAR CONDUCTION DELAY CONSIDER ANTERIOR INFARCT : Confirmed by: Dada Avina 25-Dec-2018 11:40:36
== END 2018-12-24 03:34 | disposition home or self-care (01) ==
LOC: ER 23:55
DX: J06.9 Acute upper respiratory infection, unspecified (principal); R06.02 Shortness of breath; R05 Cough; R07.9 Chest pain, unspecified; G80.9 Cerebral palsy, unspecified; R53.81 Other malaise; R53.1 Weakness; R00.2 Palpitations; I48.91 Unspecified atrial fibrillation; I10 Essential (primary) hypertension
CPT/HCPCS: 93005; 94640; 99285; 96374; 36415; 85025; 80053; 84484; 83880; 71045; 93010; A9270; J1940

== ENCOUNTER → 2018-12-26 | Outpatient (CLI) | payer MEDICARE, MEDICAID | LOC: SP 13:08 | PROVIDERS: ATTEND Specialist | DX: R94.31 Abnormal electrocardiogram [ECG] [EKG] (principal) | CPT/HCPCS: 93306 ==

== ENCOUNTER → 2019-01-01 | Outpatient (CLI) | payer MEDICAID, MEDICARE | LOC: RAD 07:25 | PROVIDERS: ATTEND Specialist | DX: I48.91 Unspecified atrial fibrillation (principal); Z53.8 Procedure and treatment not carried out for other reasons ==

== ENCOUNTER 2019-02-16 09:24 | Emergency (ER) | payer MEDICARE ==
[2019-02-16 10:20] LABS: ABSOLUTE BASOPHILS # (AUTO) 0.1 10^3/uL (0.0-0.2); ABSOLUTE EOSINOPHILS # (AUTO) 0.2 10^3/uL (0.0-0.6); ABSOLUTE LYMPHOCYTES (AUTO) 2.1 10^3/uL (0.5-4.7); ABSOLUTE MONOCYTES (AUTO) 0.6 10^3/uL (0.1-1.4); EOSINOPHILS % (AUTO) 3.1 % (0-6); HEMATOCRIT 44.7 % (37.9-51.0); HEMOGLOBIN 15.5 g/dL (13.5-17.0); LYMPHOCYTES % (AUTO) 26.5 % (13-45); MEAN CORPUSCULAR HEMOGLOBIN 27.5 pg (27.0-33.4); MEAN CORPUSCULAR HGB CONC 34.6 g/dL (32.0-36.0); MEAN CORPUSCULAR VOLUME 80 fl (80-97); PLATELET COUNT 347 10^3/uL (150-450); RED BLOOD COUNT 5.62 10^6/uL (4.35-5.55); RED CELL DISTRIBUTION WIDTH 14.6 % (11.5-14.0); SEGMENTED NEUTROPHILS % (AUTO) 62.4 % (42-78); TOTAL CELLS COUNTED % (AUTO) 100 %; WHITE BLOOD COUNT 8.1 10^3/uL (4.0-10.5)
[2019-02-16] MEDS ORDERED: DOXYCYCLINE HYCLATE 100 MG TABLET PO ONE (10:35)
[2019-02-16 10:40] LABS: ALKALINE PHOSPHATASE 83 U/L (38-126); ANION GAP 10 (5-19); ASPARTATE AMINO TRANSFERASE 26 U/L (17-59); BILIRUBIN,DIRECT 0.1 mg/dL (0.0-0.4); BILIRUBIN,TOTAL 1.1 mg/dL (0.2-1.3); BLOOD UREA NITROGEN 12 mg/dL (7-20); CALCIUM 9.3 mg/dL (8.4-10.2); CARBON DIOXIDE 29 mmol/L (22-30); CHLORIDE 100 mmol/L (98-107); GLUCOSE 118 mg/dL (75-110); POTASSIUM 3.7 mmol/L (3.6-5.0); TOTAL PROTEIN 7.9 g/dL (6.3-8.2)
[2019-02-16 14:16] VITALS: BP 157/100
--- NOTE | 2019-02-16 20:46 | ER Document Report ---
Entered by TAHIRA OSEGUERA SCRIBE 02/16/19 0936 Acting as scribe for:MITCH YANG MD ED General - General Stated Complaint: HEART PALPITATIONS Time Seen by Provider: 02/16/19 09:34 Primary Care Provider: FRANKIE MUELLER MD [ACTIVE STAFF] - Follow up tomorrow Mode of Arrival: Wheelchair Information source: Patient Notes: This 68-year-old male patient presents to the emergency department today with complaints of right lower extremity erythema with associated swelling. Patient was diagnosed with basal cell carcinoma in the right lower extremity and was s cheduled to have surgery to have it removed. Patient states that he was told he needed to have an echocardiogram and stress test prior to this procedure. Patient had the echo performed which was unremarkable but has not had the stress test yet, stating that when he was scheduled to have it he was having upper respiratory infection symptoms so they delayed it. Patient denies any pain. Pertinent PMHx/PSHx: Basic Cell Carcinoma - additional PMHx/PSHx not pertinent to this visit as recorded. TRAVEL OUTSIDE OF THE [place] IN LAST 30 DAYS: No - Related Data Allergies/Adverse Reactions: No Known Drug Allergies Allergy (Unknown, Verified 08/18/17 09:12) bee stings Allergy (Uncoded 08/18/17 09:12) Past Medical History - General Information source: Patient, [facility] Records - Social History Smoking Status: Never Smoker Cigarette use (# per day): No Chew tobacco use (# tins/day): No Frequency of alcohol use: None Drug Abuse: None Family History: Reviewed & Not Pertinent, Other - Past Medical History Cardiac Medical History: Reports: Hx Atrial Fibrillation, Hx Hypercholesterolemia, Hx Hypertension Malignancy Medical History: Reports Hx Skin Cancer GI Medical History: Reports: Hx Gastroesophageal Reflux Disease Musculoskeletal Medical History: Reports Hx Arthritis - osteoarthritis Past Surgical History: Reports: Hx Appendectomy - April 2015, Hx Orthopedic Surgery - Left Knee, Hx Tonsillectomy, Other - 11 surgeries on legs for CP - Immunizations Immunizations up to date: Yes Hx Diphtheria, Pertussis, Tetanus Vaccination: Yes Review of Systems - Review of Systems Constitutional: No symptoms reported EENT: No symptoms reported Cardiovascular: No symptoms reported Respiratory: No symptoms reported Gastrointestinal: No symptoms reported Genitourinary: No symptoms reported Male Genitourinary: No symptoms reported Musculoskeletal: See HPI, Leg swelling, Ankle swelling Skin: See HPI, Change in color, Dryness, Lesions Hematologic/Lymphatic: No symptoms reported Neurological/Psychological: No symptoms reported -: Yes All other systems reviewed and negative Physical Exam - Vital signs Vitals: Temp Pulse Resp BP Pulse Ox 98.4 F 84 18 153/97 H 99 02/16/19 09:31 02/16/19 09:31 02/16/19 09:31 02/16/19 09:31 02/16/19 09:31 Interpretation: Normal - General General appearance: Appears well, Alert - HEENT Head: Normocephalic, Atraumatic Eyes: Normal Pupils: PERRL - Respiratory Respiratory status: No respiratory distress Chest status: Nontender Breath sounds: Normal Chest palpation: Normal - Cardiovascular Rhythm: Regular Heart sounds: Normal auscultation Murmur: No - Abdominal Inspection: Morbidly Obese Distension: No distension Bowel sounds: Normal Tenderness: Nontender Organomegaly: No organomegaly - Back Back: Normal, Nontender - Extremities General upper extremity: Normal inspection, Normal ROM General lower extremity: Normal ROM, Other - See skin exam - Neurological Neuro grossly intact: Yes Cognition: Normal Orientation: AAOx4 Eduard Coma Scale Eye Opening: Spontaneous Eduard Coma Scale Verbal: Oriented Eduard Coma Scale Motor: Obeys Commands Eduard Coma Scale Total: 15 Speech: Normal Motor strength normal: LUE, RUE, LLE, RLE - Psychological Associated symptoms: Normal affect, Normal mood - Skin Notes: Lesion consistent with basal cell carcinoma to right anterior lateral calderon. There is swelling just distal to this lesion in a pattern consistent with a dressing that was placed far too tightly. Patient had Telfa wrapped tightly with Coban and and all of the swelling is just distal to where this was located. This edema extends down to the feet and toes. There is no foot warmth or erythema. The skin around this lesion is hot to the touch. There are no abnormalities proximal to the lesion. Course - Vital Signs Vital signs: Temp Pulse Resp BP Pulse Ox 98.1 F 84 20 157/100 H 98 02/16/19 12:39 02/16/19 09:31 02/16/19 12:39 02/16/19 12:39 02/16/19 12:01 - Laboratory Result Diagrams: 02/16/19 09:53 02/16/19 09:53 Laboratory results interpreted by me: 02/16/19 02/16/19 09:53 09:53 RBC 5.62 H RDW 14.6 H Glucose 118 H Discharge - Discharge Clinical Impression: Cancer of skin of right leg Cellulitis Qualifiers: Site of cellulitis: extremity Site of cellulitis of extremity: lower extremity Laterality: right Qualified Code(s): L03.115 - Cellulitis of right lower limb Condition: Stable Disposition: HOME, SELF-CARE Additional Instructions: Cellulitis You have an infection of your skin and underlying soft tissues called cellulitis. This is due to bacteria, which can enter through any break in the skin, or even through an irritated hair follicle. Untreated, cellulitis will usually worsen. Antibiotics are required. Usually, warm packs or warm soaks, and elevation of the infected area are recommended. You should start getting better within 24 to 36 hours. Most infections respond quickly to the right medication. Follow-up care is important, however, to check for abscess (boil) formation, unsuspected foreign body, or resistant infection. If you develop fever, chills, or if the area of infection is becoming rapidly more swollen or painful, call the doctor at once. Take the medication as prescribed. Try to elevate the leg is much as possible. Do not place a tight wrap type bandage around your skin cancer area, unless there is bleeding that will not stop. Call Dr. Mueller's office tomorrow morning to schedule the stress test you or unable to get last fall. After you get the stress test, call Dr. Nunez to reschedule your surgical procedure. Follow-up with your primary care provider if the cellulitis area on your leg does not improve. RETURN TO THE EMERGENCY ROOM IF ANY NEW OR WORSENING SYMPTOMS. Prescriptions: Doxycycline Hyclate 100 mg PO BID #14 tablet. Referrals: FRANKIE MUELLER MD [ACTIVE STAFF] - Follow up tomorrow Scribe Attestation: 02/16/19 10:57 I personally performed the services described in the documentation, reviewed and edited the documentation which was dictated to the scribe in my presence, and it accurately records my words and actions. I personally performed the services described in the documentation, reviewed and edited the documentation which was dictated to the scribe in my presence, and it accurately records my words and actions.
== END 2019-02-16 12:45 | disposition home or self-care (01) ==
LOC: ER 09:24
DX: C44.712 Basal cell carcinoma of skin of right lower limb, including hip (principal); L03.115 Cellulitis of right lower limb; R00.2 Palpitations; M79.604 Pain in right leg; M79.89 Other specified soft tissue disorders; I48.91 Unspecified atrial fibrillation; I10 Essential (primary) hypertension
CPT/HCPCS: 36415; 87040; 85025; 80053; A9270; 99285

== ENCOUNTER → 2019-02-26 | Outpatient (CLI) | payer MEDICARE ==
[~2019-02-26] MED LIST: REGADENOSON INJ 0.4 MG/5 ML DISP.SYRIN IV ONE
--- NOTE | 2019-02-27 22:16 | XCELERA REPORT ---
[address] [address] Transthoracic Echocardiogram Report Name: ESA AMADO Age: 68 yrs Gender: Male : 1950 Patient Status: Outpatient Patient Location: RAD Study Date: 02/26/2019 11:42 AM Height: 66 in Weight: 262 lb BSA: 2.2 m2 Procedure: A two-dimensional transthoracic echocardiogram with color flow and Doppler was performed. Study Quality: Technically suboptimal. The study was technically difficult with many images being suboptimal in quality. Images were not obtained from all of the standard acoustic windows due to the limited scope of the study. Reason For Study: I48.92 History: ATRIAL FLUTTER ( I48.92). Ordering Physician: SVETA MUELLRE Performed By: Angle Alejo Interpretation Summary Poor qaulty study.Mild LVH.Probably no regional wall motion abnormlity.Probably LVEF is normal at 55%.No or AR.Trace MR.No MVP or MS. Due to ATRIAL FLUTTER . Cannot assess ASD ,VSD or PFO. The right ventricle is not well visualized secondary to technical limitations Right atrium not well visualized secondary to technical limitations The left atrial size is normal. There is no evidence of mitral valve prolapse. There is no tricuspid stenosis. There is a trace amount of tricuspid regurgitation Tricuspid regurgitation jet envelope not well defined to measure RV systolic pressure accurately. There is no pulmonic valvular stenosis. There is no pericardial effusion. MMode/2D Measurements & Calculations RVDd: 2.8 cm LVIDd: 3.2 cm FS: 20.4 % Ao root diam: 3.7 cm IVSd: 1.2 cm LVIDs: 2.6 cm EDV(Teich): 41.2 ml Ao root area: 10.9 cm2 LVPWd: 1.2 cm ESV(Teich): 23.6 ml LA dimension: 3.8 cm EF(Teich): 42.8 % Doppler Measurements & Calculations MV E max tyson: MV P1/2t max tyson: Ao V2 max: LV V1 max P.9 cm/sec 86.9 cm/sec 98.5 cm/sec 2.0 mmHg MV A max tyson: MV P1/2t: 64.7 msec Ao max PG: LV V1 max: 20.2 cm/sec MVA(P1/2t): 3.4 cm2 3.9 mmHg 70.1 cm/sec MV E/A: 4.3 MV dec slope: 393.4 cm/sec2 MV dec time: 0.20 sec PA V2 max: MV P1/2t-pr_phl: 112.5 cm/sec 64.7 msec PA max P.1 mmHg Left Ventricle Poor qaulty study.Mild LVH.Probably no regional wall motion abnormlity.Probably LVEF is normal at 55%.No or AR.Trace MR.No MVP or MS. LV diastolic function could not be adequately assessed. Due to ATRIAL FLUTTER . Cannot assess ASD ,VSD or PFO. Right Ventricle The right ventricle is not well visualized secondary to technical limitations. Atria Right atrium not well visualized secondary to technical limitations. The left atrial size is normal. Mitral Valve There is no evidence of mitral valve prolapse. Tricuspid Valve There is no tricuspid stenosis. There is a trace amount of tricuspid regurgitation. Tricuspid regurgitation jet envelope not well defined to measure RV systolic pressure accurately. Pulmonic Valve There is no pulmonic valvular stenosis. There is a trace amount of pulmonic regurgitation. Great Vessels The aortic root is not well visualized but is probably normal size. The inferior vena cava was not well visualized. Effusions There is no pericardial effusion. : SVETA MUELLER Lakshmi
== END ==
LOC: RAD 07:29
PROVIDERS: ATTEND Specialist
DX: I48.92 Unspecified atrial flutter (principal); I48.91 Unspecified atrial fibrillation
CPT/HCPCS: 93306; 93017; 78451; A9500; J2785; Q9969

== ENCOUNTER → 2019-03-03 | Outpatient (CLI) | payer MEDICAID, MEDICARE ==
--- NOTE | 2019-03-04 22:38 | DRAGON STRESS TEST REPORT ---
2 Day Intravenous Lexiscan Cardiolite stress test using single photon emmision computerized tomography. Date of Stress procedure: 02/26/2019. Date of Resting procedure: 03/03/2019. Ordering Provider: Dr. Sveta Quiroz Indication: Atrial fibrillation and preoperative cardiac risk assessment.. Coronary risk factors: Age, hypertension, and dyslipidemia. Resting EKG: Atrial Fibrillation with nonspecific IVCD. Stress EKG: No changes of ischemia. The patient had no chest pain or discomfort, and there were no arrhythmias seen. Reason for termination: Protocol. Conclusions: Normal EKG and hemodynamic response to IV Lexiscan. Nuclear data: 02/26/2019, the patient was given intravenous Lexiscan at a dose of 0.4 mg in 5 mL intravenously, followed by flush with normal saline. Subsequently the stress dose of 40.2 millicuries of technetium 99m sestamibi was injected intravenously. As per protocol stress gated images were obtained. Subsequently the patient was brought back on 03/03/2019 and at rest the patient was given 39.9 mCi of technetium 99 sestamibi intravenously. Subsequently rest gated SPECT images were obtained. Nuclear interpretation: Review of images showed that there is small area of perfusion defect involving the left ventricle apex in both the rest and stress images, with normal motion contraction and thickening of the segment. Hence this is deemed to be a soft tissue attenuation artifact. The rest of the segments of the myocardium had normal perfusion at rest, and normal perfusion post stress with IV Lexiscan. All segments of the myocardium had normal motion, contraction, and thickening by gated study. T. I D. ratio was normal at 1.16. Computer read rest, and stress left ventricular ejection fraction were 34 %, and 30 %, respectively. This ejection fraction is not reliable due to the gating problem with the patient being in atrial fibrillation. Visually both the stress and rest ejection fractions were normal, and greater than 60 %. Conclusion: 1. There is no scintigraphic evidence of Lexiscan induced myocardial ischemia. 2. There is no scintigraphic evidence of myocardial infarction/scar. B. There is a small area of soft tissue attenuation artifact involving the left ventricular apex. Recommendations: Aggressive risk factor modification, and treating the underlying co- morbidities. Check echo for LV ejection fraction correlation. [facility]
== END ==
LOC: RAD 09:07
PROVIDERS: ATTEND Specialist
DX: I48.91 Unspecified atrial fibrillation (principal); I10 Essential (primary) hypertension; E78.5 Hyperlipidemia, unspecified
CPT/HCPCS: 78451; A9500; Q9969

== ENCOUNTER 2019-03-11 15:31 | Emergency (ER) | payer MEDICARE ==
[2019-03-11 17:22] LABS: APPEARANCE,URINE SLIGHTLY-CLOUDY; BILIRUBIN,URINE SMALL (NEGATIVE); COLOR,URINE AMBER; GLUCOSE, URINE NEGATIVE (NEGATIVE); KETONES,URINE NEGATIVE (NEGATIVE); LEUKOCYTE ESTERASE,URINE MODERATE (NEGATIVE); NITRITE,URINE NEGATIVE (NEGATIVE); PROTEIN,URINE 100 mg/dL (NEGATIVE); URINE SPECIFIC GRAVITY 1.029
[2019-03-11 18:05] LABS: ABSOLUTE BASOPHILS # (AUTO) 0.1 10^3/uL (0.0-0.2); ABSOLUTE EOSINOPHILS # (AUTO) 0.2 10^3/uL (0.0-0.6); ABSOLUTE LYMPHOCYTES (AUTO) 1.9 10^3/uL (0.5-4.7); ABSOLUTE MONOCYTES (AUTO) 0.9 10^3/uL (0.1-1.4); ABSOLUTE NEUT (AUTO) 10.1 10^3/uL (1.7-8.2); EOSINOPHILS % (AUTO) 1.4 % (0-6); HEMATOCRIT 44.9 % (37.9-51.0); HEMOGLOBIN 15.3 g/dL (13.5-17.0); LYMPHOCYTES % (AUTO) 14.7 % (13-45); MEAN CORPUSCULAR HEMOGLOBIN 27.1 pg (27.0-33.4); MEAN CORPUSCULAR HGB CONC 34.1 g/dL (32.0-36.0); MEAN CORPUSCULAR VOLUME 79 fl (80-97); MONOCYTES % (AUTO) 6.7 % (3-13); PLATELET COUNT 273 10^3/uL (150-450); RED BLOOD COUNT 5.66 10^6/uL (4.35-5.55); RED CELL DISTRIBUTION WIDTH 14.7 % (11.5-14.0); SEGMENTED NEUTROPHILS % (AUTO) 76.2 % (42-78); TOTAL CELLS COUNTED % (AUTO) 100 %; WHITE BLOOD COUNT 13.2 10^3/uL (4.0-10.5)
[2019-03-11] MEDS ORDERED: CEFTRIAXONE 1 GM/D5W RTU 1 GM/50 ML RTUPB IV ONE (18:23)
[2019-03-11 18:31] LABS: ALBUMIN 3.7 g/dL (3.5-5.0); ALKALINE PHOSPHATASE 78 U/L (38-126); ANION GAP 13 (5-19); ASPARTATE AMINO TRANSFERASE 26 U/L (17-59); BILIRUBIN,DIRECT 0.1 mg/dL (0.0-0.4); BLOOD UREA NITROGEN 16 mg/dL (7-20); CALCIUM 9.1 mg/dL (8.4-10.2); CARBON DIOXIDE 25 mmol/L (22-30); CHLORIDE 100 mmol/L (98-107); GLUCOSE 100 mg/dL (75-110); TOTAL PROTEIN 7.3 g/dL (6.3-8.2)
--- NOTE | 2019-03-11 18:34 | ER Document Report ---
ED General - General Chief Complaint: Urinary Incontinence Stated Complaint: URINARY ISSUES Time Seen by Provider: 03/11/19 18:05 Primary Care Provider: DIANA VELAZCO MD [Primary Care Provider] - Follow up as needed TRAVEL OUTSIDE OF THE [place] IN LAST 30 DAYS: No - HPI Notes: 68-year-old male with history of cerebral palsy and chronic atrial fibrillation on warfarin presents now with 2 to 3-day history of urinary urgency and urinary incontinence. These are new complaints for the patient. He denies nausea/vomiting, fever, chills or flank pain. Pertinent prior history: Cerebral palsy Hypertension. Hyperlipidemia Chronic atrial fibrillation Osteoarthritis - Related Data Allergies/Adverse Reactions: No Known Drug Allergies Allergy (Unknown, Verified 08/18/17 09:12) bee stings Allergy (Uncoded 08/18/17 09:12) Past Medical History - General Information source: Patient - Social History Smoking Status: Never Smoker Chew tobacco use (# tins/day): No Frequency of alcohol use: None Drug Abuse: None Family History: Reviewed & Not Pertinent, Other Patient has suicidal ideation: No Patient has homicidal ideation: No - Past Medical History Cardiac Medical History: Reports: Hx Atrial Fibrillation, Hx Hypercholesterolemia, Hx Hypertension Denies: Hx Coronary Artery Disease, Hx Heart Attack Pulmonary Medical History: Denies: Hx Asthma, Hx Bronchitis, Hx COPD, Hx Pneumonia Neurological Medical History: Denies: Hx Cerebrovascular Accident, Hx Seizures Renal/ Medical History: Denies: Hx Peritoneal Dialysis Malignancy Medical History: Reports Hx Skin Cancer GI Medical History: Reports: Hx Gastroesophageal Reflux Disease Musculoskeletal Medical History: Reports Hx Arthritis - osteoarthritis Past Surgical History: Reports: Hx Appendectomy - April 2015, Hx Orthopedic Surgery - Left Knee, Hx Tonsillectomy, Other - 11 surgeries on legs for CP - Immunizations Immunizations up to date: Yes Hx Diphtheria, Pertussis, Tetanus Vaccination: Yes Review of Systems - Review of Systems Notes: Constitutional: Negative for fever. HENT: Negative for sore throat. Eyes: Negative for visual changes. Cardiovascular: Negative for chest pain. Respiratory: Negative for shortness of breath. Gastrointestinal: Negative for abdominal pain, vomiting or diarrhea. Genitourinary: As per HPI. Musculoskeletal: Negative for back pain. Skin: Negative for rash. Neurological: Negative for headaches, weakness or numbness. 10 point ROS negative except as marked above and in HPI. Physical Exam - Vital signs Vitals: Temp Pulse Resp BP Pulse Ox 98.1 F 83 18 132/103 H 96 03/11/19 16:00 03/11/19 16:00 03/11/19 16:00 03/11/19 16:00 03/11/19 16:00 - Notes Notes: GENERAL: Elderly man appearing approximately stated age in no acute distress.. SKIN: Good turgor no rashes. HEAD: Normocephalic atraumatic. EYES: PERRLA. Conjunctivae and sclerae clear. EARS: CANALS AND TMS CLEAR. NOSE: CLEAR. MOUTH: Moist mucosa. Poor dentition. No stridor or edema. No drooling. NECK: Supple. No masses or thyromegaly. No adenopathy. Carotids 2+ without bruits. No JVD. BACK: Symmetrical without tenderness. CHEST: Respirations unlabored. Breath sounds clear and symmetrical. HEART: Regular rhythm. No murmur gallop or rub. ABDOMEN: Soft nontender without masses, organomegaly or rebound. Bowel sounds normally active. No bruits. GENITALIA: Deferred. EXTREMITIES: 1+ pretibial edema bilaterally. No calf tenderness. Cap refill less than 1.5 seconds. Dorsalis pedis and posterior tibial pulses 3+ and symmetrical. NEUROLOGICAL: GCS 15. Alert and oriented x3. Fluent speech. Cranial nerves II through XII intact. Sensorimotor and cerebellar normal. Normal tone. Course - Re-evaluation Re-evalutation: 03/11/19 18:33 Urinalysis is consistent with urinary tract infection. White count elevated 13.2. Patient does not look toxic and has no clinical findings of pyelonephritis. He is afebrile here. I am going to check a bladder scan. We will go ahead and administer IV Rocephin. If he continues to do well and his bladder scan is not grossly abnormal I think he can be discharged for continued treatment with oral antibiotic and outpatient follow-up with PMD. 03/11/19 18:34 - Vital Signs Vital signs: Temp Pulse Resp BP Pulse Ox 98.1 F 83 18 132/103 H 96 03/11/19 16:00 03/11/19 16:00 03/11/19 16:00 03/11/19 16:00 03/11/19 16:00 - Laboratory Result Diagrams: 03/11/19 17:38 03/11/19 17:38 Laboratory results interpreted by me: 03/11/19 03/11/19 03/11/19 16:48 17:38 17:38 WBC 13.2 H RBC 5.66 H MCV 79 L RDW 14.7 H Absolute Neuts (auto) 10.1 H Creatinine 0.48 L Urine Protein 100 H Urine Blood LARGE H Urine Bilirubin SMALL H Urine Urobilinogen 4.0 H Ur Leukocyte Esterase MODERATE H Discharge - Discharge Clinical Impression: Urinary tract infection Urinary incontinence Qualifiers: Urinary Incontinence type: urge incontinence Qualified Code(s): N39.41 - Urge incontinence Condition: Stable Disposition: HOME, SELF-CARE Additional Instructions: Urinary Tract Infection Your evaluation indicates that you have a urinary tract infection. This is due to germs growing in the bladder. This is a common problem. This infection usually responds quickly to antibiotics. Your antibiotic should be taken exactly as prescribed. Drink plenty of fluids -- three to four quarts a day. Occasionally, a bladder anesthetic will be prescribed to help stop the feeling of urgency until the antibiotic has a chance to clear the infection. This may cause your urine to be dark orange. Certain urine infections require a culture. If the doctor obtained a culture, the results will be back in two days. You should call to see if a change in treatment is needed. A repeat urinalysis after you finish treatment is often recommended. The physician will let you know if further testing is required. Call the doctor if you develop fever, chills, flank pain, inability to u rinate, or blood in the urine. Urinary Incontinence Urinary incontinence is unexpected leakage of urine from the bladder. It can be caused by damaged or weak pelvic muscles (such as after childbirth), bladder inflammation, weak bladder sphincter (valve), medications, prostate problems, and nerve problems. This is a common problem, especially in our older patients. Treatment of incontinence depends on the severity, and on the underlying cause. We test for urinary tract infection and examine for prostate enlargement or prolapse (sagging down) of the bladder and uterus. If we suspect a medicine may be contributing to the problem, we may stop it or lower the dosage. If the problem can't be corrected with medication or surgery, you may need to use absorbent underwear. For men, a "condom catheter" over the penis can collect urine. It's sometimes necessary to keep a catheter inside the bladder. The following are different types of urinary incontinence. Stress incontinence: A sudden burst of urine with cough or sneeze. This is common in women with multiple children. Pelvic muscle (Kegel) exercises may help. An incontinence pad catches the occasional accident. If severe, an operation to suspend of the bladder may correct the problem. Overflow incontinence: Leakage from an over-filled bladder. This type of incontinence is usually caused by an enlarged prostate or narrowed urethra. Prostatic obstruction can be treated with medication. Severe cases may require prostate surgery. Neurogenic bladder: Sudden emptying of the bladder due to injury or disease of the nerves that control the bladder, or overflow caused by lack of bladder contraction (atonic bladder). This usually requires a catheter, or the wearing of incontinence undergarments. A weak (atonic) bladder sometimes responds to medicine such as bethanechol (Urecholine). Overactive bladder: The bladder is irritable and tightens when it's not full. The sudden urge to urinate makes it hard to avoid passage of urine. This can often be treated with medication such as oxybutynin. Sphincter atony: The muscle that holds urine in the bladder is weak. This often causes incontinence at night. Medication such as imipramine or psuedoephedrine can sometimes help. Take prescribed antibiotic prescription. Return here as needed for new or worsening symptoms: High fever/shaking chills, vomiting, overall worsening. Follow-up with your doctor at the completion of your medication for recheck of urinalysis and reexamination. Prescriptions: Cephalexin Monohydrate [Keflex 500 mg Capsule] 500 mg PO Q6H 10 Days #40 capsule Phenazopyridine HCl [Pyridium 200 mg Tablet] 200 mg PO TID #15 tablet Referrals: DIANA VELAZCO MD [Primary Care Provider] - Follow up as needed
[2019-03-11 22:53] VITALS: BP 135/71
== END 2019-03-11 23:04 | disposition home or self-care (01) ==
LOC: ER 15:31
DX: N39.0 Urinary tract infection, site not specified (principal); N39.41 Urge incontinence; G80.9 Cerebral palsy, unspecified; I48.20 Chronic atrial fibrillation, unspecified; I10 Essential (primary) hypertension
CPT/HCPCS: 99283; 96365; 36415; 85025; 80053; 81001; C1758; J0696

== ENCOUNTER 2019-04-05 13:02 | Emergency (ER) | payer MEDICARE ==
--- NOTE | 2019-04-05 14:02 | EKG REPORT ---
SEVERITY:- ABNORMAL ECG - ATRIAL FIBRILLATION, V-RATE 77-90 LEFT BUNDLE BRANCH BLOCK : Confirmed by: Ashwin Khalil MD 05-Apr-2019 14:01:51
[2019-04-05 14:48] LABS: ABSOLUTE BASOPHILS # (AUTO) 0.1 10^3/uL (0.0-0.2); ABSOLUTE EOSINOPHILS # (AUTO) 0.2 10^3/uL (0.0-0.6); ABSOLUTE MONOCYTES (AUTO) 0.6 10^3/uL (0.1-1.4); ABSOLUTE NEUT (AUTO) 6.2 10^3/uL (1.7-8.2); BASOPHILS % (AUTO) 1.2 % (0-2); EOSINOPHILS % (AUTO) 2.1 % (0-6); HEMATOCRIT 45.6 % (37.9-51.0); HEMOGLOBIN 15.7 g/dL (13.5-17.0); LYMPHOCYTES % (AUTO) 22.4 % (13-45); MEAN CORPUSCULAR HEMOGLOBIN 26.9 pg (27.0-33.4); MEAN CORPUSCULAR HGB CONC 34.4 g/dL (32.0-36.0); MEAN CORPUSCULAR VOLUME 78 fl (80-97); MONOCYTES % (AUTO) 6.1 % (3-13); RED BLOOD COUNT 5.83 10^6/uL (4.35-5.55); RED CELL DISTRIBUTION WIDTH 14.6 % (11.5-14.0); SEGMENTED NEUTROPHILS % (AUTO) 68.2 % (42-78); TOTAL CELLS COUNTED % (AUTO) 100 %
[2019-04-05 14:49] LABS: INTERNATIONAL RATION (INR) 2.24; PROTHROMBIN TIME 25.1 SEC (11.4-15.4)
[2019-04-05 14:51] LABS: ALBUMIN 3.7 g/dL (3.5-5.0); ALKALINE PHOSPHATASE 78 U/L (38-126); ANION GAP 12 (5-19); ASPARTATE AMINO TRANSFERASE 23 U/L (17-59); BILIRUBIN,DIRECT 0.3 mg/dL (0.0-0.4); BILIRUBIN,TOTAL 0.8 mg/dL (0.2-1.3); BLOOD UREA NITROGEN 14 mg/dL (7-20); CALCIUM 8.9 mg/dL (8.4-10.2); CARBON DIOXIDE 29 mmol/L (22-30); CHLORIDE 96 mmol/L (98-107); GLUCOSE 147 mg/dL (75-110); TOTAL PROTEIN 7.6 g/dL (6.3-8.2)
[2019-04-05 15:21] LABS: PLATELET COUNT 285 10^3/uL (150-450)
--- NOTE | 2019-04-05 15:35 | ER Document Report ---
ED General - General Chief Complaint: Knee Pain Stated Complaint: LEFT KNEE PAIN Primary Care Provider: CLIF SALINAS FNP-C [NO LOCAL MD] - Follow up in 3-5 days (Cough on Sunday morning to ensure your primary provider knows you were seen in the ER and that we have ordered home wound home health PT OT referrals to ensure that these are completed since I am concerned about skin breakdown.) TRAVEL OUTSIDE OF THE [place] IN LAST 30 DAYS: No - HPI Notes: pcp listed as Dr. auguste per EMR, patient and today sayis Dr. Quinteros last meds filled per ready rx of warfarin 5, Lasix 80, statin, Protonix, 70M as his to call EMS today about an hour after she had administered an enema to try to help him have a bowel movement for chiefly complaint of continued left knee pain for about a few weeks but also some gradual swelling per and because he has not had a bowel movement in 4 days. Patient and report usual goes to the bathroom every 3 to 4 days. Patient denies any vomiting. He says he is passing gas. He says he had a small bowel movement after the enema at home, and since he has been here in the ER has had one. He denies any abdominal pain or pain anywhere else besides at the knee. He is at baseline bedbound for many years uses a Francisco lift to transfer from bed to his power chair. says last time he had any wound evaluation was few years ago. She is worried about his perineum having risk of skin breakdown since he has been sitting in the same position in his power chair for periods. She says she has not had any new difficulty with getting him clean and dry. She has help from other family members which are multiple they are living in the house with her including extended family members. bibems from home, on review of EMR says that he is been evaluated in the emergency department several times over the years of note visit 1120 19 for lower extremity pain: "DX of basal cell ca in RLE, to have surgically removed after "preop clearance of echocardiogram and stress test. At that time he had reported he had the echo performed which was unremarkable but not stress test yet, stating that when he was scheduled to have it he was having upper respiratory infection symptoms so they delayed it." Today, patient still says he has not actually had the known basal cell carcinoma of the right lower extremity removed because he needs to touch base with his quill stripper first. says she has been wrapping that area on anterior calderon with a Mario wrap, but otherwise does not do any usual wound care. I expressed my concern for pressure breakdown for his left heel meets his right medial midfoot, stage I, 2 x 2 centimeter area. Also expressed concern for some skin breakdown and possible yeast infection in inguinal creases and area of pannus crease of stomach. As well as the perineum. He has no reported history of diabetes they confirm. He was treated for a "UTI with Keflex on 03-11-19. He has not continued to have any symptoms after finishing that treatment. Patient says he has not had increased pain in the sacral or pelvic or lower abdominal region. No fevers chills sweats. No change in p.o. intake. - Related Data Allergies/Adverse Reactions: No Known Drug Allergies Allergy (Unknown, Verified 08/18/17 09:12) bee stings Allergy (Uncoded 08/18/17 09:12) Home Medications: unable to be completed at this time. 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 - Social History Smoking Status: Unknown if Ever Smoked Family History: Reviewed & Not Pertinent, Other Patient has suicidal ideation: No Patient has homicidal ideation: No - Past Medical History Cardiac Medical History: Reports: Hx Atrial Fibrillation, Hx Hypercholesterolemia, Hx Hypertension Denies: Hx Coronary Artery Disease, Hx Heart Attack Pulmonary Medical History: Denies: Hx Asthma, Hx Bronchitis, Hx COPD, Hx Pneumonia Neurological Medical History: Denies: Hx Cerebrovascular Accident, Hx Seizures Renal/ Medical History: Denies: Hx Peritoneal Dialysis Malignancy Medical History: Reports Hx Skin Cancer GI Medical History: Reports: Hx Gastroesophageal Reflux Disease Musculoskeletal Medical History: Reports Hx Arthritis - osteoarthritis Past Surgical History: Reports: Hx Appendectomy - April 2015, Hx Orthopedic Surgery - Left Knee, Hx Tonsillectomy, Other - 11 surgeries on legs for CP - Immunizations Immunizations up to date: Yes Hx Diphtheria, Pertussis, Tetanus Vaccination: Yes Review of Systems - Review of Systems Constitutional: No symptoms reported EENT: No symptoms reported Cardiovascular: No symptoms reported Respiratory: No symptoms reported Gastrointestinal: Constipation. denies: Abdomen distended, Abdominal pain, Diarrhea, Vomiting, Poor appetite, Poor fluid intake, Black stools, Fecal incontinence Genitourinary: No symptoms reported. denies: Frequency, Flank pain, Hematuria - Before signs of detailed know just call 7 2 to do, Urgency, Retention Musculoskeletal: Joint pain, Joint swelling - l knee Skin: See HPI Hematologic/Lymphatic: denies: Easy bleeding, Easy bruising Neurological/Psychological: No symptoms reported Physical Exam - Vital signs Vitals: Temp Pulse BP Pulse Ox 98.2 F 82 132/70 H 96 04/05/19 13:09 04/05/19 13:09 04/05/19 13:09 04/05/19 13:09 - General General appearance: Appears well, Other - Obese, is alert., able to give a good history. - Rectal Tenderness: No Stool: Other - Soft brown fecal material soiling back and buttock region.. No: Black, Bloody Prostate: No: Tender - Genitourinary Tenderness: Other - Scrotum nontender nonswollen without skin changes or fluctu ance. Perineum does appear to have some stage I pressure changes, but no masses or fluctuance on palpation. - Extremities Knee: Other - Left knee very minimal medial effusion without overlying erythema or skin change. No evidence of increased calf circumference or tenderness or edema otherwise in the extremity. No posterior knee tenderness or swelling or m asses. No laxity of the knee joint or significant pain with passive range of motion. Does have TTP over medial aspect of anterior patella, no ttp to proximal tibia or any aspect of tibia. No tenderness at ankle joint. Sensation to light touch is grossly symmetric and intact in all distributions of lumbar nerve roots. + Peripheral muscle atrophy BLE consistent with known cerebral palsy. - Skin Skin Temperature: Warm - +2x2 cm erythematous area where L heel is dependent on R medial foot. Confluent erythema at bilateral inguinal folds & area btw abd pa nnus w/ satellite lesion distribution peripherally suggesting candidal infection Skin Color: Other - No gluteal or more cephalad sacral skin breakdown. No skin breakdown in the upper extremities or elsewhere found. Notes: Evidence of b/l diffuse toe onchonycchia: overgrown thick toenails with evidence of fungal infection. Course - Re-evaluation Re-evalutation: 04/05/19 17:51 Since was continuing having soft bowel movements here had a benign abdominal exam will plan on prescribing a bowel regimen to keep him regular. Also discussed with setting up wound care and home evaluation since he is got evidence of skin breakdown and candidal infections in the pannus and bilateral inguinal areas. I am deferring UA today since he is not having sx not fully will confirm x-ray of the left knee is negative, also reviewed his INR which is 2.3 on his warfarin. minimal effusion at the left medial knee is not consistent with pain out of proportion on PROM to suggest septic joint or systemic sx other findings suggesting a septic joint. Also even though he is bedbound, he has appropriate INR today for chronic A. fib and DVT prevention, and otherwise exam and history consistent with DVT. I will also defer tapping the knee fluid since again no concern for septic joint or gouty arthritis. Will call Gerda to see if she can follow-up with the family about first available wound care evaluations and home evaluations since this is time sensitive given his definite evidence today of decubital pressure skin breakdown in areas described above in physical exam. 04/05/19 18:27 - Vital Signs Vital signs: Temp Pulse Resp BP Pulse Ox 98.2 F 82 132/70 H 96 04/05/19 13:09 04/05/19 13:09 04/05/19 13:09 04/05/19 13:09 - Laboratory Result Diagrams: 04/05/19 13:16 04/05/19 13:16 Laboratory results interpreted by me: 04/05/19 04/05/19 04/05/19 13:16 13:16 13:16 RBC 5.83 H MCV 78 L MCH 26.9 L RDW 14.6 H PT 25.1 H Sodium 136.5 L Chloride 96 L Creatinine 0.45 L Glucose 147 H Discharge - Discharge Clinical Impression: Osteopenia determined by x-ray Constipation Qualifiers: Constipation type: unspecified constipation type Qualified Code(s): K59.00 - Constipation, unspecified Knee pain, left Qualifiers: Chronicity: acute Qualified Code(s): M25.562 - Pain in left knee Condition: Fair Disposition: HOME, SELF-CARE Additional Instructions: Today in the emergency department x-ray of your knee showed an old fracture that was seen on images from years ago in the tibia, severe bone breakdown called osteopenia that was also present in old images and no new fractures. Your lab work looks good today you do not have a white count that is elevated like he did when you were seen mid March and treated for a urinary infection. today I did not repeat the urinalysis since you were not having urinary symptoms. Your INR is at a good level today, 2.3, for preventing clots since you have A. fib. I recommend using 650 of Tylenol every 6 hours for baseline level of pain contro l. I am also much concerned about evidence of some skin breakdown in your feet as well as in your buttock area. It also looks like in the folds of your abdominal fat and your leg/hip creases there is evidence of a yeast infection. I have requested the social contact worker call you to set up a home wound care and PT OT, home health evaluations as well as a nurse to come out just to him ensure your medications have been reviewed. In the meantime since it Sunday, the please try to use pillows or soft foam cushions under areas that are in contact with the power chair or bed or other body parts such as his foot and ankle that usually rest together. This way it will continue to prevent any more breakdown in the skin at these areas that have redness. Watch for any fevers chills sweats, vomiting, pain in the groin area or other skin changes. Also want you to call your primary care doctor Sunday at [facility] to let them know we have made this referral for these home evaluations. Just ensure that they are completed, and that your wounds can be followed up with their clinic as well. Also regarding the concern for your right lower leg skin cancer, I see that you have had the stress test done in March ordered by your quill stripper Therefore I need you to call your primary care provider at [facility] and tell them that he still needs surgical evaluation and definitive treatment and work-up for this that had been planned but was deferred until could be have the stress test for "clearance". if needed the primary doctor/provider can call Mr. Charles quill stripper to confirm preop clearance has been performed and results were negative for stress testing. If he needs reports of these test he can also call [facility] to confirm results of the stress testing that were negative or any results from your ED visit today Prescriptions: Acetaminophen [Pain & Fever] 650 mg PO Q6HP PRN 14 Days #21 tablet PRN Reason: Mineral Oil [Fleet Mineral Oil Enema 133 Ml] 133 ml AK PRN PRN 5 Days #5 enema PRN Reason: For Constipation Polyethylene Glycol 3350 [Miralax Powder 17 gm/Packet] 1 packet PO DAILY PRN 30 Days #1 pkg PRN Reason: For Constipation Referrals: CLIF SALINAS, STEFANIC [NO LOCAL MD] - Follow up in 3-5 days (Cough on Sunday morning to ensure your primary provider knows you were seen in the ER and that we have ordered home wound home health PT OT referrals to ensure that these are completed since I am concerned about skin breakdown.)
[2019-04-05] MEDS ORDERED: ACETAMINOPHEN 325 MG TABLET PO ONE (16:50)
--- NOTE | 2019-04-05 18:01 | RADIOLOGY REPORT (SQ) ---
EXAM DESCRIPTION: KNEE LEFT 2 VIEWS COMPLETED DATE/TIME: 04/05/2019 5:49 pm REASON FOR STUDY: swelling pain COMPARISON: 06/03/2013 NUMBER OF VIEWS: Two views. TECHNIQUE: AP and lateral radiographic images acquired of the left knee. LIMITATIONS: None. FINDINGS: MINERALIZATION: Severe osteopenia. BONES: No acute fracture or dislocation. Nonacute fracture deformity of the proximal left tibial met adiaphysis. Redemonstrated cerclage fixation of the patella. No worrisome bone lesions. JOINT: No effusion. High riding position of the patella. Moderate tricompartmental arthrosis. SOFT TISSUES: No soft tissue swelling. No radio-opaque foreign body. OTHER: No other significant finding. IMPRESSION: 1. Severe osteopenia. No acute fracture dislocation. Nonacute fracture deformity of th e proximal left tibial metadiaphysis. Redemonstrated cerclage fixation of the patella. 2. High-riding position of the patella, as seen on prior examination. Moderate tricompartmental art hrosis. TECHNICAL DOCUMENTATION: JOB ID: [id number] [employer]- All Rights Reserved Reading location - IP/workstation name: [email or web address]
[2019-04-05 19:55] VITALS: BP 126/65
== END 2019-04-05 20:32 | disposition home or self-care (01) ==
LOC: ER 13:02
DX: M85.862 Other specified disorders of bone density and structure, left lower leg (principal); M25.562 Pain in left knee; K59.00 Constipation, unspecified; M79.89 Other specified soft tissue disorders; R05 Cough; Z79.01 Long term (current) use of anticoagulants; Z79.899 Other long term (current) drug therapy; C44.712 Basal cell carcinoma of skin of right lower limb, including hip; I10 Essential (primary) hypertension
CPT/HCPCS: 93005; 99284; 36415; 85025; 85610; 80053; 73560; 93010; A9270

== ENCOUNTER 2019-04-18 10:23 | Emergency (ER) | payer MEDICARE ==
--- NOTE | 2019-04-18 14:03 | RADIOLOGY REPORT (SQ) ---
EXAM DESCRIPTION: KNEE LEFT 4 VIEW COMPLETED DATE/TIME: 04/18/2019 1:43 pm REASON FOR STUDY: left knee pain COMPARISON: None. NUMBER OF VIEWS: Four views. TECHNIQUE: AP, lateral, and oblique views of the left knee were obtained. LIMITATIONS: None. FINDINGS: MINERALIZATION: Osteopenia. BONES: Unchanged deformity of the proximal tibia. There is a cerclage wire around the patella. Ther e is no acute fracture. JOINT: No effusion or evidence of lipohemarthrosis. SOFT TISSUES: No soft tissue swelling. OTHER: No other finding. IMPRESSION: No acute osseous abnormality of the left knee. TECHNICAL DOCUMENTATION: JOB ID: [id number] [employer]- All Rights Reserved Reading location - IP/workstation name: [email or web address]
--- NOTE | 2019-04-18 14:35 | ER Document Report ---
ED General - General Chief Complaint: Knee Pain Stated Complaint: KNEE PAIN Time Seen by Provider: 04/18/19 13:11 Primary Care Provider: DIANA VELAZCO MD [Primary Care Provider] - Follow up as needed Notes: 69-year-old male presents with left knee pain. Patient has a history of same. Patient states he shattered his kneecap years ago and this was repaired. Denies any recent injury or previous surgeries. Upon arrival patient was found to be covered in feces. Patient is bedbound and his only automatic bow maker machine tender is his who is 71 years old. Patient has been seen multiple times for similar. During patient's last visit an attempt was made to get home health involved however this was unable to be completed. Patient denies any chest pain, dyspnea, fever, nominal pain, nausea/vomiting, or any other complaints. TRAVEL OUTSIDE OF THE [place] IN LAST 30 DAYS: No - Related Data Allergies/Adverse Reactions: No Known Drug Allergies Allergy (Unknown, Verified 08/18/17 09:12) bee stings Allergy (Uncoded 08/18/17 09:12) Home Medications: Pt brought in medications Past Medical History - Social History Smoking Status: Never Smoker Chew tobacco use (# tins/day): No Frequency of alcohol use: None Drug Abuse: None Family History: Reviewed & Not Pertinent, Other Patient has suicidal ideation: No Patient has homicidal ideation: No - Past Medical History Cardiac Medical History: Reports: Hx Atrial Fibrillation, Hx Hypercholesterolemia, Hx Hypertension Denies: Hx Coronary Artery Disease, Hx Heart Attack Pulmonary Medical History: Denies: Hx Asthma, Hx Bronchitis, Hx COPD, Hx Pneumonia Neurological Medical History: Denies: Hx Cerebrovascular Accident, Hx Seizures Renal/ Medical History: Denies: Hx Peritoneal Dialysis Malignancy Medical History: Reports Hx Skin Cancer GI Medical History: Reports: Hx Gastroesophageal Reflux Disease Musculoskeletal Medical History: Reports Hx Arthritis - osteoarthritis Past Surgical History: Reports: Hx Appendectomy - April 2015, Hx Orthopedic Surgery - Left Knee, Hx Tonsillectomy, Other - 11 surgeries on legs for CP - Immunizations Immunizations up to date: Yes Hx Diphtheria, Pertussis, Tetanus Vaccination: Yes Review of Systems - Review of Systems Notes: Constitutional: Negative for fever. HENT: Negative for sore throat. Eyes: Negative for visual changes. Cardiovascular: Negative for chest pain. Respiratory: Negative for shortness of breath. Gastrointestinal: Negative for abdominal pain, vomiting or diarrhea. Genitourinary: Negative for dysuria. Musculoskeletal: Positive for left knee pain. Negative for back pain. Skin: Negative for rash. Neurological: Negative for headaches, weakness or numbness. 10 point ROS negative except as marked above and in HPI. Physical Exam - Notes Notes: GENERAL: Well-appearing, well-nourished and in no acute distress. HEAD: Atraumatic, normocephalic. EYES: Extraocular movements intact, sclera anicteric, conjunctiva are normal. NECK: Normal range of motion, supple without lymphadenopathy or JVD. EXTREMITIES: Mild tenderness to left knee. No erythema or swelling. Healed scar noted. NEUROLOGICAL: Cranial nerves II through XII grossly intact. Normal speech, normal gait. PSYCH: Normal mood, normal affect. SKIN: Warm, Dry, normal turgor, no rashes or lesions noted. Course - Re-evaluation Re-evalutation: 04/18/19 69 y/o male presents for left knee pain. Upon arrival to ER patient was found covered in feces. Patient is bedbound and his only automatic bow maker machine tender is his who is 70 years old. Patient was seen in ER couple weeks ago and a home health referral was placed however for some reason this was not completed. Shama ent's x-ray of left knee shows no acute fractures. Patient has mild tenderness around knee however no erythema or swelling. Patient was cleaned by nursing staff. Patient given Tylenol 3 and prescription for same. 04/18/19 14:27 Spoke to social insurance analyst who is going to set up home health. 04/18/19 15:18 barnworker groom states referral is in. Pt will be contacted to set up home health. Patient given return precautions. Patient also given follow-up with his PCP. Patient voices understanding and agrees with plan of care. Discharge - Discharge Clinical Impression: Left knee pain Qualifiers: Chronicity: chronic Qualified Code(s): M25.562 - Pain in left knee; G89.29 - Other chronic pain Condition: Stable Disposition: HOME, SELF-CARE Additional Instructions: Your left knee x-ray does not show any fractures. Please take Tylenol 3 as prescribed. Please follow-up with your primary care doctor in 3 to 5 days. Home health will contact you to set up appointments and get this set up. Return to ER for any worsening symptoms, including worsening pain, abdominal pain, nausea/vomiting, fever, chest pain, shortness of breath, or any other symptoms that are concerning to you. Prescriptions: Acetaminophen with Codeine [Tylenol #3 Tablet] 1 each PO Q8HP PRN #10 tablet PRN Reason: Referrals: DIANA VELAZCO MD [Primary Care Provider] - Follow up in 3-5 days
[2019-04-18] MEDS ORDERED: ACETAMINOPHEN WITH CODEINE #3 TABLET PO ONE (15:17)
[2019-04-18 18:31] VITALS: BP 142/63
== END 2019-04-18 18:30 | disposition home or self-care (01) ==
LOC: ER 10:23
DX: M25.562 Pain in left knee (principal); I48.91 Unspecified atrial fibrillation; I10 Essential (primary) hypertension
CPT/HCPCS: 99284

== ENCOUNTER 2019-05-02 06:21 | Inpatient (IN) | payer MEDICARE ==
[2019-05-02 06:49] LABS: ABSOLUTE BASOPHILS # (AUTO) 0.1 10^3/uL (0.0-0.2); ABSOLUTE EOSINOPHILS # (AUTO) 0.1 10^3/uL (0.0-0.6); ABSOLUTE LYMPHOCYTES (AUTO) 2.6 10^3/uL (0.5-4.7); ABSOLUTE MONOCYTES (AUTO) 1.2 10^3/uL (0.1-1.4); ABSOLUTE NEUT (AUTO) 8.9 10^3/uL (1.7-8.2); BASOPHILS % (AUTO) 0.8 % (0-2); EOSINOPHILS % (AUTO) 0.5 % (0-6); HEMATOCRIT 47.6 % (37.9-51.0); HEMOGLOBIN 15.9 g/dL (13.5-17.0); LYMPHOCYTES % (AUTO) 19.9 % (13-45); MEAN CORPUSCULAR HEMOGLOBIN 26.5 pg (27.0-33.4); MEAN CORPUSCULAR HGB CONC 33.3 g/dL (32.0-36.0); MEAN CORPUSCULAR VOLUME 80 fl (80-97); MONOCYTES % (AUTO) 9.5 % (3-13); PLATELET COUNT 378 10^3/uL (150-450); RED BLOOD COUNT 5.99 10^6/uL (4.35-5.55); RED CELL DISTRIBUTION WIDTH 14.4 % (11.5-14.0); SEGMENTED NEUTROPHILS % (AUTO) 69.3 % (42-78); TOTAL CELLS COUNTED % (AUTO) 100 %; WHITE BLOOD COUNT 12.8 10^3/uL (4.0-10.5)
[2019-05-02 07:00] LABS: ALKALINE PHOSPHATASE 84 U/L (38-126); ANION GAP 11 (5-19); ASPARTATE AMINO TRANSFERASE 41 U/L (17-59); BILIRUBIN,DIRECT 0.5 mg/dL (0.0-0.4); BILIRUBIN,TOTAL 1.6 mg/dL (0.2-1.3); BLOOD UREA NITROGEN 16 mg/dL (7-20); CALCIUM 8.9 mg/dL (8.4-10.2); CARBON DIOXIDE 30 mmol/L (22-30); CHLORIDE 94 mmol/L (98-107); CREATINE KINASE 22 U/L (55-170); GLUCOSE 151 mg/dL (75-110); POTASSIUM 3.1 mmol/L (3.6-5.0); TOTAL PROTEIN 8.3 g/dL (6.3-8.2)
[2019-05-02 07:07] LABS: INTERNATIONAL RATION (INR) 4.51
[2019-05-02 07:11] LABS: CREATINE KINASE MB 0.24 ng/mL (<4.55)
[2019-05-02 07:15] LABS: TROPONIN I 0.067 ng/mL
[2019-05-02] MEDS: DILTIAZEM HCL/D5W 125 MG/125 ML RTUINJ IV PRN ×2 (07:30→22:30)
--- NOTE | 2019-05-02 07:40 | RADIOLOGY REPORT (SQ) ---
EXAM DESCRIPTION: XR CHEST 1 VIEW COMPLETED DATE/TME: 05/02/2019 07:00 CLINICAL HISTORY: 69 years, Male, SOB, AF w/ RVR COMPARISON: 11/29/2018 NUMBER OF VIEWS: One TECHNIQUE: AP view of the chest LIMITATIONS: None. FINDINGS: The lungs are clear. The heart is at the upper limit of normal in size. There is no pneumothorax or pleural effusion. No acute fracture. IMPRESSION: No acute cardiopulmonary abnormality copyright 2010 [employer]- All Rights Reserved
--- NOTE | 2019-05-02 08:02 | ER Document Report ---
Entered by JAGRUTI BURTON SCRIBE 05/02/19 0709 Acting as scribe for:MITCH YANG MD ED General - General Chief Complaint: Chest Pain Stated Complaint: SHORTNESS OF BREATH,EPIGASTRIC PAIN Time Seen by Provider: 05/02/19 06:50 Primary Care Provider: DIANA VELAZCO MD [Primary Care Provider] - Follow up as needed Mode of Arrival: Ambulatory Information source: Patient Notes: This 69 year old male patient presents to the emergency department today with complaints of shortness of breath which he states he noticed when he woke up th morning at 0430. EMS reported that when they arrived the patient had a heart rate in the 130s in afib with RVR, he was given cardizem and his heart rate slowed into the 90s prior to arrival here. Patient reports that he has been missing his recent doctor's appointments because his "power chair just stopped" working and he is not sure why. Patient reports the chair stopped worked weeks ago. Patient has not yet had the basal cell carcinoma removed from his RLE that was diagnosed two months ago. TRAVEL OUTSIDE OF THE [place] IN LAST 30 DAYS: No - Related Data Allergies/Adverse Reactions: No Known Drug Allergies Allergy (Unknown, Verified 05/02/19 06:31) bee stings Allergy (Uncoded 08/18/17 09:12) Past Medical History - General Information source: Patient - Social History Smoking Status: Never Smoker Cigarette use (# per day): No Frequency of alcohol use: None Drug Abuse: None Lives with: Family Family History: Reviewed & Not Pertinent, Other Patient has suicidal ideation: No Patient has homicidal ideation: No - Past Medical History Cardiac Medical History: Reports: Hx Atrial Fibrillation, Hx Hypercholesterolemia, Hx Hypertension Malignancy Medical History: Reports Hx Skin Cancer GI Medical History: Reports: Hx Gastroesophageal Reflux Disease Musculoskeletal Medical History: Reports Hx Arthritis - osteoarthritis Past Surgical History: Reports: Hx Appendectomy - April 2015, Hx Orthopedic Surgery - Left Knee, Hx Tonsillectomy, Other - 11 surgeries on legs for CP - Immunizations Immunizations up to date: Yes Hx Diphtheria, Pertussis, Tetanus Vaccination: Yes Review of Systems - Review of Systems Constitutional: No symptoms reported EENT: No symptoms reported Cardiovascular: No symptoms reported Respiratory: See HPI, Short of breath Gastrointestinal: No symptoms reported Genitourinary: No symptoms reported Male Genitourinary: No symptoms reported Musculoskeletal: No symptoms reported Skin: See HPI, Lesions - RLE Hematologic/Lymphatic: No symptoms reported Neurological/Psychological: No symptoms reported -: Yes All other systems reviewed and negative Physical Exam - Vital signs Vitals: Temp Pulse Resp BP Pulse Ox 98.1 F 117 H 17 160/96 H 96 05/02/19 06:22 05/02/19 06:22 05/02/19 06:22 05/02/19 06:22 05/02/19 06:22 - Notes Notes: Physical Exam: General: Alert, appears unkempt. There is a very malodorous scent in the room which appears to be coming from contents from the trash can, which is where the wipes that were used to clean the patient were discarded. fastener sewing machine operator cleaned large amounts of a caseating substance from in and around the patients inguinal area. HEENT: Normocephalic. Atraumatic. PERRL. Extraocular movements intact. Oropharynx clear. Full chaidez and moustache. Neck: Supple. Non-tender. Respiratory: No respiratory distress. Clear and equal breath sounds bilaterally. Cardiovascular: Tachycardic, irregularly irregular. Abdominal: Normal Inspection. Non-tender. No distension. Normal Bowel Sounds. Back: No gross abnormalities. Extremities: Moves all four extremities. Upper extremities: Normal inspection. Normal ROM. Lower extremities: RLE coban over basal cell carcinoma. No edema. Normal ROM. Neurological: Normal cognition. AAOx4. Normal speech. Psychological: Normal affect. Normal Mood. Skin: Dried, scaly, hyperpigmented areas on the lower extremities. Course - Vital Signs Vital signs: Temp Pulse Resp BP Pulse Ox 98.1 F 117 H 18 126/74 H 94 05/02/19 06:22 05/02/19 06:22 05/02/19 09:31 05/02/19 09:31 05/02/19 09:31 - Laboratory Result Diagrams: 05/02/19 06:30 05/02/19 06:30 Laboratory results interpreted by me: 05/02/19 05/02/19 05/02/19 06:30 06:30 06:30 WBC 12.8 H RBC 5.99 H MCH 26.5 L RDW 14.4 H Absolute Neuts (auto) 8.9 H PT 44.0 H Sodium 134.9 L Potassium 3.1 L Chloride 94 L Creatinine 0.35 L Glucose 151 H POC Glucose Total Bilirubin 1.6 H Direct Bilirubin 0.5 H Creatine Kinase 22 L NT-Pro-B Natriuret Pep Total Protein 8.3 H 05/02/19 05/02/19 06:30 06:30 WBC RBC MCH RDW Absolute Neuts (auto) PT Sodium Potassium Chloride Creatinine Glucose POC Glucose 146 H Total Bilirubin Direct Bilirubin Creatine Kinase NT-Pro-B Natriuret Pep 2110 H Total Protein - Diagnostic Test Radiology reviewed: Image reviewed, Reports reviewed - Portable chest x-ray does not show acute cardia pulmonary findings. - EKG Interpretation by Me EKG shows normal: [place], Intervals, QRS Complexes, ST-T Waves Rate: Tachycardia - 107 Rhythm: A.Fib [place]/QRS: LBBB When compared to previous EKG there are: No significant change Critical Care Note - Critical Care Note Total time excluding time spent on procedures (mins): 35 Discharge - Discharge Clinical Impression: Atrial fibrillation with RVR, Excessive anticoagulation Condition: Good Disposition: ADMITTED INPATIENT Admitting Provider: Rosemarie (Hospitalist) Unit Admitted: IMCU Referrals: DIANA VELAZCO MD [Primary Care Provider] - Follow up as needed Scribe Attestation: 05/02/19 09:43 I personally performed the services described in the documentation, reviewed and edited the documentation which was dictated to the scribe in my presence, and it accurately records my words and actions. I personally performed the services described in the documentation, reviewed and edited the documentation which was dictated to the scribe in my presence, and it accurately records my words and actions.
[2019-05-02] MEDS ORDERED: POTASSIUM CHLORIDE 10 MEQ TABLET.ER PO ONE (12:24)
[2019-05-02] MEDS ORDERED: PROMETHAZINE HCL INJ 25 MG/1 ML VIAL IV PRN (12:25)
[2019-05-02] MEDS ORDERED: TEMAZEPAM 7.5 MG CAPSULE PO PRN (12:25)
[2019-05-02] MEDS ORDERED: ONDANSETRON HCL INJ/PF 4 MG/2 ML SDV IV PRN (12:25)
[2019-05-02] MEDS ORDERED: ALBUTEROL SULFATE 0.083% NEB 2.5 MG/3 ML AMPUL NEB PRN (12:25)
[2019-05-02] MEDS ORDERED: MAG HYDROX/AL HYDROX/SIMETH SUSP 30 ML UDCUP PO PRN (12:25)
[2019-05-02] MEDS ORDERED: ACETAMINOPHEN 325 MG TABLET PO PRN (12:25)
[2019-05-02] MEDS ORDERED: METOPROLOL TARTRATE PF/INJ 5 MG/5 ML SDV IV PRN (12:29)
[2019-05-02] MEDS ORDERED: HYDRALAZINE HCL INJ/PF 20 MG/1 ML SDV IV PRN (12:29)
--- NOTE | 2019-05-02 13:06 | EKG REPORT ---
SEVERITY:- ABNORMAL ECG - ATRIAL FIBRILLATION, V-RATE 74-165 LEFT BUNDLE BRANCH BLOCK : Confirmed by: Dada Avina 02-May-2019 13:05:19
[2019-05-02] MEDS ORDERED: FUROSEMIDE 80 MG TABLET PO PRN (17:16)
--- NOTE | 2019-05-02 17:16 | PDOC H&P ---
History of Present Illness Admission Date/PCP: 05/02/19 10:08 DIANA VELAZCO MD History of Present Illness: ESA AMADO is a 69 year old male past medical history of A. fib, dys lipidemia, hypertension, basal cell carcinoma right lower extremity, arthritis, wheelchair-bound due to cerebral palsy affecting bilateral lower extremities, presenting to ED complaining of shortness of breath. This morning patient woke up feeling short of breath, EMS was called and patient was noted to be in A. fib RVR, he was given a dose of Cardizem and was brought to ED with his pulse in the 90s, patient is stating that he is very compliant with his medication and denies being sick recently, denies any fever, chest pain, chills, nausea, vomiting, diarrhea, constipation or any urinary symptoms. Patient has right lower extremity anterior calderon basal cell skin cancer was supposed to get surgery by Dr. Simon metal treater however he has missed his appointment because his motorized wheelchair has stopped working and he has not been able to fix it. Past Medical History Cardiac Medical History: Reports: Atrial Fibrillation, Hyperlipidema, Hyperten kip Denies: Coronary Artery Disease, Myocardial Infarction Pulmonary Medical History: Denies: Asthma, Bronchitis, Chronic Obstructive Pulmonary Disease (COPD), Pneumonia Neurological Medical History: Denies: Seizures Malignancy Medical History: Reports: Skin Cancer GI Medical History: Reports: Gastroesophageal Reflux Disease Musculoskeltal Medical History: Reports: Arthritis - osteoarthritis Hematology: Denies: Anemia Past Surgical History Past Surgical History: Reports: Appendectomy - April 2015, Orthopedic Surgery - Left Knee, Tonsillectomy, Other - 11 surgeries on legs for CP Social History Lives with: Family Smoking Status: Never Smoker Electronic Cigarette use?: No Frequency of Alcohol Use: None Hx Recreational Drug Use: No Drugs: None Hx Prescription Drug Abuse: No Family History Family History: Reviewed & Not Pertinent, Other Parental Family History Reviewed: Yes Children Family History Reviewed: Yes Sibling(s) Family History Reviewed.: Yes Medication/Allergy Home Medications: Acetaminophen [Tylenol 325 mg Tablet] 650 mg PO Q4HP PRN 05/02/19 Furosemide [Lasix 80 mg Tablet] 80 mg PO HSP PRN 05/02/19 Metoprolol Tartrate [Lopressor 50 mg Tablet] 25 mg PO BID 05/02/19 Omeprazole 40 mg PO QAM 05/02/19 Simvastatin 20 mg PO QHS 05/02/19 Warfarin Sodium [Coumadin 2.5 mg Tablet] 2.5 mg PO SUTUTH 05/02/19 Warfarin Sodium [Coumadin 5 mg Tablet] 5 mg PO QHS 05/02/19 Allergies/Adverse Reactions: No Known Drug Allergies Allergy (Unknown, Verified 05/02/19 06:31) bee stings Allergy (Uncoded 08/18/17 09:12) Review of Systems Review of Systems: as per hpi Physical Exam Vital Signs: Temp Pulse Resp BP Pulse Ox 97.8 F 78 16 129/83 H 94 05/02/19 14:52 05/02/19 16:42 05/02/19 16:42 05/02/19 14:52 05/02/19 16:42 Intake & Output 05/01/19 05/02/19 05/03/19 06:59 06:59 06:59 Intake Total 6 Balance 6 Weight 118.841 kg 118.6 kg Results Laboratory Results: 05/02/19 06:30 05/02/19 06:30 05/02/19 05/02/19 05/02/19 06:30 06:30 06:30 WBC 12.8 H RBC 5.99 H Hgb 15.9 Hct 47.6 MCV 80 MCH 26.5 L MCHC 33.3 RDW 14.4 H Plt Count 378 Seg Neutrophils % 69.3 Sodium 134.9 L Potassium 3.1 L Chloride 94 L Carbon Dioxide 30 Anion Gap 11 BUN 16 Creatinine 0.35 L Est GFR ( Amer) > 60 Glucose 151 H Calcium 8.9 Magnesium 2.3 Total Bilirubin 1.6 H AST 41 Alkaline Phosphatase 84 Total Protein 8.3 H Albumin 4.0 TSH 05/02/19 05/02/19 06:30 14:06 WBC RBC Hgb Hct MCV MCH MCHC RDW Plt Count Seg Neutrophils % Sodium Potassium Chloride Carbon Dioxide Anion Gap BUN Creatinine Est GFR ( Amer) Glucose Calcium Magnesium Total Bilirubin AST Alkaline Phosphatase Total Protein Albumin TSH Cancelled 0.63 05/02/19 05/02/19 05/02/19 06:30 06:30 06:30 Creatine Kinase 22 L CK-MB (CK-2) 0.24 Troponin I 0.067 NT-Pro-B Natriuret Pep 2110 H 05/02/19 09:40 Creatine Kinase CK-MB (CK-2) Troponin I 0.070 NT-Pro-B Natriuret Pep Impressions: Chest X-Ray 05/02/19 07:00 IMPRESSION: No acute cardiopulmonary abnormality copyright 2011 [employer]- All Rights Reserved Assessment and Plan - Diagnosis (1) Atrial fibrillation with RVR Is this a current diagnosis for this admission?: Yes Plan: History of atrial fibrillation chronically anticoagulated with Coumadin. TSH WNL. Troponin 0.067, 0.070 respectively. Chest x-ray no acute abnormalities. EKG atrial fibrillation with left bundle branch block which appears to be chron ic. BC CMP WNL. Afebrile. Admit x3, Cardizem drip, PRN beta-blockers, transition back to p.o. beta- blockers once rate controlled. (2) History of cerebral palsy Is this a current diagnosis for this admission?: Yes Plan: Patient has cerebral palsy affecting bilateral lower extremities with multiple surgeries for tendon release. Uses a motorized wheelchair and living with his and stepdaughter. Continue supportive measures. general office worker consulted for any needs. (3) Poor personal hygiene Is this a current diagnosis for this admission?: Yes Plan: Patient is extremely unkempt with malodorous smell. I wonder if there is a component of neglect involved. Discharge planning consulted for possible placement. Will notify APS. (4) Hypertension Qualifiers: Hypertension type: essential hypertension Qualified Code(s): I10 - Essential (primary) hypertension Is this a current diagnosis for this admission?: Yes Plan: Euvolemic. Normotensive. Restart home meds. Adjust meds as needed. Outpatient PCP follow-up. (5) Hyperlipidemia Is this a current diagnosis for this admission?: Yes Plan: Restart home meds. (6) Basal cell carcinoma Qualifiers: Laterality: right Eyelid: lower Is this a current diagnosis for this admission?: Yes Plan: Right lower extremity anterior calderon basal cell carcinoma. Patient has a follow-up as outpatient with Dr. Moreau dermatology for possible surgery but unfortunately he has missed his appointment stating that his motorized wheelchair was not working. Consult discharge planning for possible help.
[2019-05-02] MEDS ORDERED: METOPROLOL TARTRATE 50 MG TABLET PO SCH (18:00)
--- NOTE | 2019-05-02 19:03 | RADIOLOGY REPORT (SQ) ---
EXAM DESCRIPTION: CT SOFT TISSUE NECK WITH COMPLETED DATE/TIME: 05/02/2019 6:43 pm REASON FOR STUDY: Right anterior neck mass. COMPARISON: None. TECHNIQUE: Post IV contrasted scanning from skull base through lung apices with review of bone, soft tissue and lung windows. Reconstructed coronal and sagittal MPR images reviewed. All images stored on PACS. All CT scanners at this facility use dose modulation, iterative reconstruction, and/or weight based d osing when appropriate to reduce radiation dose to as low as reasonably achievable (ALARA). [facility]: Dose Right [facility]: CareDose [facility]: Dose Right [facility]: Teradose 4D [facility]: Teqcycle CONTRAST TYPE AND DOSE: contrast/concentration: Isovue 350.00 mg/ml; Total Contrast Delivered: 75.0 ml; Total Saline Delivered: 55.0 ml RENAL FUNCTION: GFR > 60. RADIATION DOSE: CT Rad equipment meets quality standard of care and radiation dose reduction techniq ues were employed. CTDIvol: 19.5 mGy. DLP: 659 mGy-cm. . LIMITATIONS: None. FINDINGS: SKULL BASE: Intact. MAJOR SALIVARY GLANDS: No solid or cystic masses. No inflammatory changes. LYMPHADENOPATHY: No adenopathy. MUCOSAL MASSES OR ASYMMETRY: No mucosal masses or asymmetry. LARYNX/CORDS: No abnormal findings. VASCULAR STRUCTURES: The major vessels are patent. LUNG APICES: Clear. BONES: Intact. THYROID: Normal size. No masses. PARANASAL SINUSES: Clear. OTHER: No other significant finding. IMPRESSION: NO SIGNIFICANT FINDING IN THE SOFT TISSUES OF THE NECK. TECHNICAL DOCUMENTATION: JOB ID: [id number] Quality ID # [id number]: Final reports with documentation of one or more dose reduction techniques (e.g., Au tomated exposure control, adjustment of the mA and/or kV according to patient size, use of iterative reconstruction technique) 2010 [employer]- All Rights Reserved Reading location - IP/workstation name: [email or web address]
[2019-05-02 19:39] LABS: APPEARANCE,URINE TURBID; BILIRUBIN,URINE NEGATIVE (NEGATIVE); GLUCOSE, URINE NEGATIVE (NEGATIVE); KETONES,URINE 20 mg/dL (NEGATIVE); LEUKOCYTE ESTERASE,URINE NEGATIVE (NEGATIVE); NITRITE,URINE NEGATIVE (NEGATIVE); PROTEIN,URINE 30 mg/dL (NEGATIVE); URINE SPECIFIC GRAVITY 1.027
[2019-05-02 19:41] LABS: COLOR,URINE DARK YELLOW
[2019-05-02] MEDS: METOPROLOL TARTRATE 25 MG TABLET PO SCH (21:45)
[2019-05-03 05:07] LABS: ABSOLUTE BASOPHILS # (AUTO) 0.1 10^3/uL (0.0-0.2); ABSOLUTE EOSINOPHILS # (AUTO) 0.1 10^3/uL (0.0-0.6); ABSOLUTE NEUT (AUTO) 4.5 10^3/uL (1.7-8.2); EOSINOPHILS % (AUTO) 1.8 % (0-6); HEMATOCRIT 43.3 % (37.9-51.0); HEMOGLOBIN 14.9 g/dL (13.5-17.0); LYMPHOCYTES % (AUTO) 25.9 % (13-45); MEAN CORPUSCULAR HEMOGLOBIN 26.7 pg (27.0-33.4); MEAN CORPUSCULAR HGB CONC 34.4 g/dL (32.0-36.0); MEAN CORPUSCULAR VOLUME 78 fl (80-97); MONOCYTES % (AUTO) 12.7 % (3-13); PLATELET COUNT 245 10^3/uL (150-450); RED BLOOD COUNT 5.58 10^6/uL (4.35-5.55); RED CELL DISTRIBUTION WIDTH 14.8 % (11.5-14.0); SEGMENTED NEUTROPHILS % (AUTO) 58.6 % (42-78); TOTAL CELLS COUNTED % (AUTO) 100 %; WHITE BLOOD COUNT 7.7 10^3/uL (4.0-10.5)
[2019-05-03 05:27] LABS: ALBUMIN 3.4 g/dL (3.5-5.0); ALKALINE PHOSPHATASE 69 U/L (38-126); ANION GAP 13 (5-19); ASPARTATE AMINO TRANSFERASE 27 U/L (17-59); BILIRUBIN,DIRECT 0.6 mg/dL (0.0-0.4); BILIRUBIN,TOTAL 1.9 mg/dL (0.2-1.3); BLOOD UREA NITROGEN 15 mg/dL (7-20); CALCIUM 8.8 mg/dL (8.4-10.2); CARBON DIOXIDE 30 mmol/L (22-30); CHLORIDE 90 mmol/L (98-107); GLUCOSE 112 mg/dL (75-110); POTASSIUM 3.6 mmol/L (3.6-5.0); TOTAL PROTEIN 7.4 g/dL (6.3-8.2)
[2019-05-03] MEDS ORDERED: PANTOPRAZOLE SODIUM 20 MG TABLET.DR PO SCH (06:00)
[2019-05-03] MEDS: PANTOPRAZOLE SODIUM 40 MG TABLET.DR PO SCH (08:04)
[2019-05-03] MEDS: NORMAL SALINE 1000 ML 1,000 ML IV PRN ×3 (08:05→23:48)
--- NOTE | 2019-05-03 10:54 | PDOC PROGRESS REPORT ---
Subjective Progress Note for:: 05/03/19 Subjective:: ESA AMADO is a 69 year old male past medical history of A. fib, dyslipidemia, hypertension, basal cell carcinoma right lower extremity, arthritis, wheelchair-bound due to cerebral palsy affecting bilateral lower extremities, presenting to ED complaining of shortness of breath. This morning patient woke up feeling short of breath, EMS was called and patient was noted to be in A. fib RVR, he was given a dose of Cardizem and was brought to ED with his pulse in the 90s, patient is stating that he is very compliant with his medication and denies being sick recently, denies any fever, chest pain, chills, nausea, vomiting, diarrhea, constipation or any urinary symptoms. Patient has right lower extremity anterior calderon basal cell skin cancer was supposed to get surgery by Dr. Simon lifts and cranes inspector however he has missed his appointment because his motorized wheelchair has stopped working and he has not been able to fix it. 05/03/2019. No acute events overnight. Shortness of breath has resolved, A. fib RVR has resolved, patient denies any fever, chills, nausea, vomiting. Reason For Visit: SOB,AFIB RVR Physical Exam Vital Signs: Temp Pulse Resp BP Pulse Ox 98.4 F 90 19 148/90 H 99 05/03/19 08:35 05/03/19 08:35 05/03/19 08:35 05/03/19 08:35 05/03/19 08:35 Intake & Output 05/02/19 05/03/19 05/04/19 06:59 06:59 06:59 Intake Total 825 346 Output Total 200 Balance 625 346 Weight 118.841 kg 117.3 kg General appearance: PRESENT: no acute distress, cooperative, disheveled, morbidly obese Head exam: PRESENT: atraumatic, normocephalic Respiratory exam: PRESENT: clear to auscultation elena. ABSENT: rales, rhonchi, wheezes Cardiovascular exam: PRESENT: RRR. ABSENT: diastolic murmur, rubs, systolic murmur GI/Abdominal exam: PRESENT: normal bowel sounds, soft. ABSENT: distended, guard ing, mass, organolmegaly, rebound, tenderness Neurological exam: PRESENT: alert, awake, oriented to person, oriented to place, oriented to time, oriented to situation, CN II-XII grossly intact, motor sensory deficit - Bilateral lower extremity spastic paraplegic. Skin exam: PRESENT: skin tears, other - stage 2 back and sacral decubitus ulcer Left anterior neck skin breakdown. Results Laboratory Results: 05/03/19 03:47 05/02/19 05/02/19 05/02/19 06:30 14:06 17:34 WBC RBC Hgb Hct MCV MCH MCHC RDW Plt Count Seg Neutrophils % Sodium Potassium Chloride Carbon Dioxide Anion Gap BUN Creatinine Est GFR ( Amer) Glucose Calcium Magnesium Total Bilirubin AST Alkaline Phosphatase Total Protein Albumin TSH Cancelled 0.63 Urine Color DARK YELLOW Urine Appearance TURBID Urine pH 5.0 Ur Specific Brant 1.027 Urine Protein 30 H Urine Glucose (UA) NEGATIVE Urine Ketones 20 H Urine Blood SMALL H Urine Nitrite NEGATIVE Ur Leukocyte Esterase NEGATIVE Urine WBC (Auto) 16 Urine RBC (Auto) 5 05/03/19 05/03/19 03:47 03:47 WBC 7.7 RBC 5.58 H Hgb 14.9 Hct 43.3 MCV 78 L MCH 26.7 L MCHC 34.4 RDW 14.8 H Plt Count 245 Seg Neutrophils % 58.6 Sodium 132.8 L Potassium 3.6 Chloride 90 L Carbon Dioxide 30 Anion Gap 13 BUN 15 Creatinine 0.27 L Est GFR ( Amer) > 60 Glucose 112 H Calcium 8.8 Magnesium 2.0 Total Bilirubin 1.9 H AST 27 Alkaline Phosphatase 69 Total Protein 7.4 Albumin 3.4 L TSH Urine Color Urine Appearance Urine pH Ur Specific Brant Urine Protein Urine Glucose (UA) Urine Ketones Urine Blood Urine Nitrite Ur Leukocyte Esterase Urine WBC (Auto) Urine RBC (Auto) 05/02/19 05/02/19 05/02/19 06:30 06:30 06:30 Creatine Kinase 22 L CK-MB (CK-2) 0.24 Troponin I 0.067 NT-Pro-B Natriuret Pep 2110 H 05/02/19 05/02/19 09:40 17:54 Creatine Kinase CK-MB (CK-2) Troponin I 0.070 0.089 NT-Pro-B Natriuret Pep Impressions: Soft Tissue Neck CT 05/02/19 00:00 IMPRESSION: NO SIGNIFICANT FINDING IN THE SOFT TISSUES OF THE NECK. Chest X-Ray 05/02/19 07:00 IMPRESSION: No acute cardiopulmonary abnormality copyright 2010 [employer]- All Rights Reserved Assessment and Plan - Diagnosis (1) Atrial fibrillation with RVR Is this a current diagnosis for this admission?: Yes Plan: Rate controlled. Anticoagulated. Off of Cardizem drip. History of atrial fibrillation chronically anticoagulated with Coumadin. TSH WNL. Troponin 0.067, 0.070 respectively. Chest x-ray no acute abnormalities. EKG atrial fibrillation with left bundle branch block which appears to be chronic. BC CMP WNL. Afebrile. Continue beta-blockers, Coumadin with INR goal of 2-2.5. PRN IV beta-blockers. (2) History of cerebral palsy Is this a current diagnosis for this admission?: Yes Plan: Patient has cerebral palsy affecting bilateral lower extremities with multiple surgeries for tendon release. Uses a motorized wheelchair and living with his and stepdaughter. Continue supportive measures. fabric worker fitter consulted for any needs. (3) Poor personal hygiene Is this a current diagnosis for this admission?: Yes Plan: Patient is extremely unkempt with malodorous smell. I wonder if there is a component of neglect involved. Discharge planning consulted for possible placement. APS has been notified. (4) Hypertension Qualifiers: Hypertension type: essential hypertension Qualified Code(s): I10 - Essential (primary) hypertension Is this a current diagnosis for this admission?: Yes Plan: Euvolemic. Normotensive. Restart home meds. Adjust meds as needed. Outpatient PCP follow-up. (5) Hyperlipidemia Is this a current diagnosis for this admission?: Yes Plan: Restart home meds. (6) Basal cell carcinoma Qualifiers: Laterality: right Eyelid: lower Is this a current diagnosis for this admission?: Yes Plan: Right lower extremity anterior calderon basal cell carcinoma. Patient has a follow-up as outpatient with Dr. Moreau dermatology for possible surgery but unfortunately he has missed his appointment stating that his motorized wheelchair was not working. Consult discharge planning for possible help. (7) Decubitus ulcer Qualifiers: Pressure injury location: sacral region Pressure injury stage: stage 2 Qualified Code(s): L89.152 - Pressure ulcer of sacral region, stage 2 Is this a current diagnosis for this admission?: Yes Plan: Continue frequent repositioning, continue wound care. (8) Skin breakdown Is this a current diagnosis for this admission?: Yes Plan: Patient had left anterior neck skin breakdown suspicion was raised for possible mass underlying the skin. CT neck with contrast negative for any masses or collections. Continue wound care.
[2019-05-03 10:57] LABS: HEMATOCRIT 42.8 % (37.9-51.0); HEMOGLOBIN 14.8 g/dL (13.5-17.0); MEAN CORPUSCULAR HEMOGLOBIN 26.4 pg (27.0-33.4); MEAN CORPUSCULAR HGB CONC 34.6 g/dL (32.0-36.0); MEAN CORPUSCULAR VOLUME 77 fl (80-97); PLATELET COUNT 258 10^3/uL (150-450); RED CELL DISTRIBUTION WIDTH 14.7 % (11.5-14.0)
[2019-05-03 10:58] LABS: INTERNATIONAL RATION (INR) 4.62; PROTHROMBIN TIME 44.9 SEC (11.4-15.4)
[2019-05-03] MEDS: FUROSEMIDE 40 MG TABLET PO SCH (11:52)
[2019-05-03] MEDS: METOPROLOL TARTRATE 25 MG TABLET PO SCH ×2 (11:53→21:19)
[2019-05-03] MEDS ORDERED: ACETAMINOPHEN WITH CODEINE #3 TABLET PO PRN (13:18)
[2019-05-04 05:04] LABS: INTERNATIONAL RATION (INR) 4.11; PROTHROMBIN TIME 40.9 SEC (11.4-15.4)
[2019-05-04 05:11] LABS: ANION GAP 6 (5-19); BLOOD UREA NITROGEN 10 mg/dL (7-20); CALCIUM 8.2 mg/dL (8.4-10.2); CARBON DIOXIDE 30 mmol/L (22-30); CHLORIDE 97 mmol/L (98-107); GLUCOSE 99 mg/dL (75-110); POTASSIUM 3.2 mmol/L (3.6-5.0)
[2019-05-04] MEDS ORDERED: POTASSIUM CHLORIDE 10 MEQ TABLET.ER PO ONE (06:50)
[2019-05-04] MEDS: PANTOPRAZOLE SODIUM 40 MG TABLET.DR PO SCH (07:00)
[2019-05-04] MEDS: NORMAL SALINE 1000 ML 1,000 ML IV PRN (07:00)
[2019-05-04] MEDS: METOPROLOL TARTRATE 25 MG TABLET PO SCH ×2 (09:35→21:46)
[2019-05-04] MEDS: FUROSEMIDE 40 MG TABLET PO SCH (09:35)
--- NOTE | 2019-05-04 09:41 | PDOC PROGRESS REPORT ---
Subjective Progress Note for:: 05/04/19 Subjective:: ESA AMADO is a 69 year old male past medical history of A. fib, dyslipidemia, hypertension, basal cell carcinoma right lower extremity, arthritis, wheelchair-bound due to cerebral palsy affecting bilateral lower extremities, presenting to ED complaining of shortness of breath. This morning patient woke up feeling short of breath, EMS was called and patient was noted to be in A. fib RVR, he was given a dose of Cardizem and was brought to ED with his pulse in the 90s, patient is stating that he is very compliant with his medication and denies being sick recently, denies any fever, chest pain, chills, nausea, vomiting, diarrhea, constipation or any urinary symptoms. Patient has right lower extremity anterior calderon basal cell skin cancer was supposed to get surgery by Dr. Simon plaster machine tender however he has missed his appointment because his motorized wheelchair has stopped working and he has not been able to fix it. 05/03/2019. No acute events overnight. Shortness of breath has resolved, A. fib RVR has resolved, patient denies any fever, chills, nausea, vomiting. 05/04/2019. No acute events overnight. Shortness of breath has resolved, A. fib rate controlled, denies any fever, chills, nausea, vomiting, diarrhea, constipation or any urinary symptoms. Reason For Visit: SOB,AFIB RVR Physical Exam Vital Signs: Temp Pulse Resp BP Pulse Ox 97.9 F 93 17 140/82 H 99 05/04/19 08:28 05/04/19 08:28 05/04/19 08:28 05/04/19 08:28 05/04/19 08:28 Intake & Output 05/03/19 05/04/19 05/05/19 06:59 06:59 06:59 Intake Total 825 4186 387 Output Total 200 0 Balance 625 4186 387 Weight 117.3 kg 122.6 kg General appearance: PRESENT: no acute distress, disheveled, well-developed, well-nourished Head exam: PRESENT: atraumatic, normocephalic Neck exam: PRESENT: other - Skin breakdown left anterior neck. Respiratory exam: PRESENT: clear to auscultation elena. ABSENT: rales, rhonchi, wheezes Cardiovascular exam: PRESENT: irregular rhythm. ABSENT: diastolic murmur, rubs, systolic murmur GI/Abdominal exam: PRESENT: normal bowel sounds, soft. ABSENT: distended, guar ding, mass, organolmegaly, rebound, tenderness Neurological exam: PRESENT: alert, awake, oriented to person, oriented to place, oriented to time, oriented to situation, CN II-XII grossly intact, motor sensory deficit - Bilateral lower extremity spastic paresis. Results Laboratory Results: 05/03/19 09:59 05/04/19 04:18 05/03/19 05/04/19 09:59 04:18 WBC 7.0 RBC 5.60 H Hgb 14.8 Hct 42.8 MCV 77 L MCH 26.4 L MCHC 34.6 RDW 14.7 H Plt Count 258 Sodium 133.2 L Potassium 3.2 L Chloride 97 L Carbon Dioxide 30 Anion Gap 6 BUN 10 Creatinine 0.31 L Est GFR ( Amer) > 60 Glucose 99 Calcium 8.2 L 05/02/19 05/02/19 05/02/19 06:30 06:30 06:30 Creatine Kinase 22 L CK-MB (CK-2) 0.24 Troponin I 0.067 NT-Pro-B Natriuret Pep 2110 H 05/02/19 05/02/19 09:40 17:54 Creatine Kinase CK-MB (CK-2) Troponin I 0.070 0.089 NT-Pro-B Natriuret Pep Impressions: Soft Tissue Neck CT 05/02/19 00:00 IMPRESSION: NO SIGNIFICANT FINDING IN THE SOFT TISSUES OF THE NECK. Chest X-Ray 05/02/19 07:00 IMPRESSION: No acute cardiopulmonary abnormality copyright 2011 [employer]- All Rights Reserved Assessment and Plan - Diagnosis (1) Atrial fibrillation with RVR Is this a current diagnosis for this admission?: Yes Plan: Rate controlled. Anticoagulated. Off of Cardizem drip. History of atrial fibrillation chronically anticoagulated with Coumadin. TSH WNL. Troponin 0.067, 0.070 respectively. Chest x-ray no acute abnormalities. EKG atrial fibrillation with left bundle branch block which appears to be chronic. BC CMP WNL. Afebrile. Continue beta-blockers, Coumadin with INR goal of 2-2.5. PRN IV beta-blockers. (2) History of cerebral palsy Is this a current diagnosis for this admission?: Yes Plan: Patient has cerebral palsy affecting bilateral lower extremities with multiple surgeries for tendon release. Uses a motorized wheelchair and living with his and stepdaughter. Continue supportive measures. hop worker consulted for any needs. (3) Poor personal hygiene Is this a current diagnosis for this admission?: Yes Plan: Patient is extremely unkempt with malodorous smell. I wonder if there is a component of neglect involved. Discharge planning consulted for possible placement. APS has been notified. (4) Hypertension Qualifiers: Hypertension type: essential hypertension Qualified Code(s): I10 - Essential (primary) hypertension Is this a current diagnosis for this admission?: Yes Plan: Euvolemic. Normotensive. Restart home meds. Adjust meds as needed. Outpatient PCP follow-up. (5) Hyperlipidemia Is this a current diagnosis for this admission?: Yes Plan: Restart home meds. (6) Basal cell carcinoma Qualifiers: Laterality: right Eyelid: lower Is this a current diagnosis for this admission?: Yes Plan: Right lower extremity anterior calderon basal cell carcinoma. Patient has a follow-up as outpatient with Dr. Moreau dermatology for possible surgery but unfortunately he has missed his appointment stating that his motorized wheelchair was not working. Consult discharge planning for possible help. (7) Decubitus ulcer Qualifiers: Pressure injury location: sacral region Pressure injury stage: stage 2 Qualified Code(s): L89.152 - Pressure ulcer of sacral region, stage 2 Is this a current diagnosis for this admission?: Yes Plan: Continue frequent repositioning, continue wound care. (8) Skin breakdown Is this a current diagnosis for this admission?: Yes Plan: Patient had left anterior neck skin breakdown suspicion was raised for possible mass underlying the skin. CT neck with contrast negative for any masses or collections. Continue wound care.
[2019-05-04] MEDS: OXYCODONE-ACETAMINOPHEN 5-325 MG TABLET PO PRN (16:17)
--- NOTE | 2019-05-04 16:39 | PDOC CONSULTATION ---
Consultation Consult Date: 05/04/19 Attending physician:: FRANKIE MUELLER Provider Consulted: FRANCHESCA RODRIGUEZ Consult reason:: Right leg lesion History of Present Illness Admission Date/PCP: 05/02/19 10:08 DIANA VELAZCO MD Patient complains of: Leg lesion History of Present Illness: ESA AMADO is a 69 year old male Admitted to the hospital several days ago for exacerbation of atrial fibrillation with rapid ventricular response. Patient is now been managed medically. He is on chronic Coumadin therapy with PT INR of 40 in excess of 4.11. Patient has a known skin lesion right lower extremity suspicious for basal cell carcinoma. Patient is seen Dr. Simon, assistant store manager, wound clinic, and was actually referred to [facility] for further management. Patient was evaluated by Dr. Mueller, who felt that patient should be attended to while hospitalized given his mobility challenges. Patient has a history of cerebral palsy. He 6 years old, full code. He gets around with a scooter, does not ambulate. Past Medical History Cardiac Medical History: Reports: Atrial Fibrillation, Hyperlipidema, Hypertension Denies: Coronary Artery Disease, Myocardial Infarction Pulmonary Medical History: Denies: Asthma, Bronchitis, Chronic Obstructive Pulmonary Disease (COPD), Pneumonia Neurological Medical History: Denies: Seizures Malignancy Medical History: Reports: Skin Cancer GI Medical History: Reports: Gastroesophageal Reflux Disease Musculoskeltal Medical History: Reports: Arthritis - osteoarthritis Hematology: Denies: Anemia Past Surgical History Past Surgical History: Reports: Appendectomy - April 2015, Orthopedic Surgery - Left Knee, Tonsillectomy, Other - 11 surgeries on legs for CP Social History Lives with: Family Smoking Status: Never Smoker Electronic Cigarette use?: No Frequency of Alcohol Use: None Hx Recreational Drug Use: No Drugs: None Hx Prescription Drug Abuse: No Family History Family History: None, Reviewed & Not Pertinent, Other Parental Family History Reviewed: No Children Family History Reviewed: No Sibling(s) Family History Reviewed.: No Medication/Allergy Home Medications: Acetaminophen [Tylenol 325 mg Tablet] 650 mg PO Q4HP PRN 05/02/19 Furosemide [Lasix 80 mg Tablet] 80 mg PO HSP PRN 05/02/19 Metoprolol Tartrate [Lopressor 50 mg Tablet] 25 mg PO BID 05/02/19 Omeprazole 40 mg PO QAM 05/02/19 Simvastatin 20 mg PO QHS 05/02/19 Warfarin Sodium [Coumadin 2.5 mg Tablet] 2.5 mg PO SUTUTH 05/02/19 Warfarin Sodium [Coumadin 5 mg Tablet] 5 mg PO QHS 05/02/19 Acetaminophen with Codeine [Tylenol #3 Tablet] 1 tab PO Q8HP PRN 05/03/19 Allergies/Adverse Reactions: No Known Drug Allergies Allergy (Unknown, Verified 05/02/19 06:31) bee stings Allergy (Uncoded 08/18/17 09:12) Review of Systems Constitutional: ABSENT: chills, fever(s), headache(s), weight gain, weight loss Eyes: ABSENT: visual disturbances Nose, Mouth, and Throat: PRESENT: other - Extremely poor dentition Cardiovascular: PRESENT: as per HPI - Rate now controlled Gastrointestinal: PRESENT: other - Chronic shortness of breath Musculoskeletal: PRESENT: other - Chronic lichenification of the lower extremities; chronic onychomycoses Integumentary: PRESENT: other - As above Neurological: PRESENT: focal weakness, other - Focal weakness of lower extremities Physical Exam Vital Signs: Temp Pulse Resp BP Pulse Ox 98.2 F 77 20 124/67 95 05/04/19 12:24 05/04/19 12:24 05/04/19 12:24 05/04/19 12:24 05/04/19 12:24 Intake & Output 05/03/19 05/04/19 05/05/19 06:59 06:59 06:59 Intake Total 825 4186 848 Output Total 200 0 Balance 625 4186 848 Weight 117.3 kg 122.6 kg General appearance: PRESENT: other - Awake and alert communicative Head exam: PRESENT: normocephalic Eye exam: PRESENT: EOMI Mouth exam: PRESENT: dry mucosa Teeth exam: PRESENT: dental caries Neck exam: PRESENT: full ROM Respiratory exam: PRESENT: rhonchi Cardiovascular exam: PRESENT: RRR Pulses: PRESENT: normal carotid pulses, normal femoral pulses GI/Abdominal exam: PRESENT: soft Rectal exam: PRESENT: deferred Gentrourinary exam: PRESENT: scrotal swelling Extremities exam: PRESENT: other - Unable to manipulate legs independently; skin is very dry. On the right lower extremity mid anterior tibial position is a 1 x 3 cm fleshy raised lesion, not actively draining, stuck on appearance. No satellite lesions. Musculoskeletal exam: PRESENT: other - Inability to voluntarily move legs, feet Neurological exam: PRESENT: oriented to person, oriented to place, oriented to time, reflexes normal Results Laboratory Results: 05/03/19 09:59 05/04/19 04:18 05/04/19 04:18 Sodium 133.2 L Potassium 3.2 L Chloride 97 L Carbon Dioxide 30 Anion Gap 6 BUN 10 Creatinine 0.31 L Est GFR ( Amer) > 60 Glucose 99 Calcium 8.2 L 05/02/19 05/02/19 05/02/19 06:30 06:30 06:30 Creatine Kinase 22 L CK-MB (CK-2) 0.24 Troponin I 0.067 NT-Pro-B Natriuret Pep 2110 H 05/02/19 05/02/19 09:40 17:54 Creatine Kinase CK-MB (CK-2) Troponin I 0.070 0.089 NT-Pro-B Natriuret Pep Impressions: Soft Tissue Neck CT 05/02/19 00:00 IMPRESSION: NO SIGNIFICANT FINDING IN THE SOFT TISSUES OF THE NECK. Chest X-Ray 05/02/19 07:00 IMPRESSION: No acute cardiopulmonary abnormality copyright 2011 [employer]- All Rights Reserved Assessment & Plan - Diagnosis (1) Basal cell carcinoma Qualifiers: Laterality: right Eyelid: lower Is this a current diagnosis for this admission?: Yes Plan: Impression: Atypical skin lesion, chronic, right lower extremity and patient with cerebral palsy, dry, redundant skin pharmacologically anticoagulated on Coumadin Recommendations: 1. Management strategies discussed. I suggested we allow the PT/INR to no rmalize somewhat before electively removing this skin lesion on patient's right leg. The procedure can be done during this hospitalization at bedside. We explained this plan to the patient, expresses understanding agrees to proceed. (2) Atrial fibrillation with RVR Is this a current diagnosis for this admission?: Yes (3) Decubitus ulcer Qualifiers: Pressure injury location: sacral region Pressure injury stage: stage 2 Qualified Code(s): L89.152 - Pressure ulcer of sacral region, stage 2 Is this a current diagnosis for this admission?: Yes (4) History of cerebral palsy Is this a current diagnosis for this admission?: Yes (7) Sleep apnea syndrome Qualifiers: Sleep apnea type: unspecified type Qualified Code(s): G47.30 - Sleep apnea, unspecified Is this a current diagnosis for this admission?: Yes (8) History of Coumadin therapy Is this a current diagnosis for this admission?: Yes - Time Time Spent: 30 to 50 Minutes Smoking Cessation Education: 3 to 10 minutes Medications reviewed and adjusted accordingly: Yes Anticipated discharge: Home - Inpatient Certification Based on my medical assessment, after consideration of the patient's comorbidities, presenting symptoms, or acuity I expect that the services needed warrant INPATIENT care.: Yes I certify that my determination is in accordance with my understanding of Medicare's requirements for reasonable and necessary INPATIENT services [42 CFR 412.3e].: Yes Medical Necessity: Need For IV Fluids
--- NOTE | 2019-05-04 17:18 | PDOC CONSULTATION ---
Consultation-Blank Consultation: CARDIOLOGY CONSULTATION by Dr. Sveta Quiroz on 05/04/2019. Patient seen at 1:00 PM. 60 minutes spent on this patient with more than 50% of time spent in direct patient care. REASON FOR CONSULTATION: Atrial fibrillation with rapid ventricular response, on admission, and preoperative cardiac risk assessment for right skin cancer surgery. CONSULT REQUESTING PHYSICIAN: [facility] HISTORY OF PRESENT ILLNESS: Patient is a 69-year-old wheelchair-bound 69-year male due to cerebral palsy, and with history of hypertension and chronic atrial fibrillation on Coumadin admitted with atrial fibrillation with rapid ventricular response causing him to have shortness of breath. The chest x-ray did not show heart failure on initial admission. The patient at present his heart rate is controlled. He denies any chest pain or discomfort. He has no history of coronary artery disease. He in anticipation of his right skin cancer surgery had a IV Lexiscan Cardiolite stress test on 02/26/2019 which showed no reversible ischemia and there was no AL or scar. There was a mild soft tissue attenuation artifact of the left ventricle apex. In spite of the patient's risk assessment being done the patient could not have the surgery done due to transport problems. It is also noted that on admission there was some evidence of the patient being not well kept. He has no bleeding on Coumadin but his INR is 4.11. Hence his Coumadin is being held. He denies PND orthopnea or chest pain at present. At present there is no palpitations. Past Medical History Cardiac Medical History: Reports: Atrial Fibrillation, Hyperlipidema, Hypertension Denies: Coronary Artery Disease, Myocardial Infarction Pulmonary Medical History: Denies: Asthma, Bronchitis, Chronic Obstructive Pulmonary Disease (COPD), Pneumonia Neurological Medical History: Denies: Seizures Malignancy Medical History: Reports: Skin Cancer GI Medical History: Reports: Gastroesophageal Reflux Disease Musculoskeltal Medical History: Reports: Arthritis - osteoarthritis Hematology: Denies: Anemia RESUSCITATION STATUS: The patient is a full code. The patient's /spouse is his surrogate healthcare decision maker. Past Surgical History Past Surgical History: Reports: Appendectomy - April 2015, Orthopedic Surgery - Left Knee, Tonsillectomy, Other - 11 surgeries on legs for CP Social History Lives with: Family Smoking Status: Never Smoker Electronic Cigarette use?: No Frequency of Alcohol Use: None Hx Recreational Drug Use: No Drugs: None Hx Prescription Drug Abuse: No Family History Family History: Reviewed & Not Pertinent, Other Parental Family History Reviewed: Yes Children Family History Reviewed: Yes Sibling(s) Family History Reviewed.: Yes Current Medications Generic Name Dose Route Start Last Admin Trade Name Freq PRN Reason Stop Dose Admin Acetaminophen 325 mg 05/02/19 12:25 Tylenol 325 Mg Tablet PO 06/01/19 12:24 Q4HP PRN FEVER >101 Al Hydrox/Mg Hydrox/Simethicone 15 ml 05/02/19 12:25 Maalox Plus Susp 30 Udcup PO 06/01/19 12:24 Q6HP PRN HEARTBURN Albuterol 2.5 mg 05/02/19 12:25 Ventolin 0.083% Neb 2.5 Mg/3 Ml Ampul NEB 06/01/19 12:24 RTQ6HP PRN SHORTNESS OF BREATH Furosemide 40 mg 05/03/19 10:00 05/04/19 09:35 Lasix 40 Mg Tablet PO 06/02/19 09:59 40 mg DAILY NASIR Administration Hydralazine HCl 10 mg 05/02/19 12:29 Apresoline Inj/Pf 20 Mg/1 Ml Sdv IV 06/01/19 12:28 Q3HP PRN Give For Sbp > [150] Metoprolol Tartrate 2.5 mg 05/02/19 12:29 Lopressor Inj/Pf 5 Mg/5 Ml Sdv IV 06/01/19 12:28 Q6HP PRN Give For Hr > [150] Metoprolol Tartrate 25 mg 05/02/19 22:00 05/04/19 21:46 Lopressor 25 Mg Tablet PO 06/01/19 21:59 25 mg Q12 NASIR Administration Ondansetron HCl 4 mg 05/02/19 12:25 Zofran Inj/Pf 4 Mg/2 Ml Sdv IV 06/01/19 12:24 Q4HP PRN FOR NAUSEA/VOMITING Oxycodone/Acetaminophen 1 tab 05/02/19 12:25 05/04/19 16:17 Percocet 5-325 Mg Tablet PO 05/09/19 12:24 1 tab Q4HP PRN Administration FOR PAIN SCALE 3-5 Pantoprazole Sodium 40 mg 05/03/19 08:00 05/04/19 07:[address] Tablet PO 06/02/19 07:59 40 mg QAM NASIR Administration Potassium Chloride 20 meq 05/05/19 10:00 Klor-Con 10 Meq Tablet Er PO 06/04/19 09:59 DAILY [facility] Promethazine HCl 6.25 mg 05/02/19 12:25 Phenergan Inj 25 Mg/1 Ml Vial IV 06/01/19 12:24 Q4HP PRN UNRESOLVED NAUSEA/VOMITING Temazepam 7.5 mg 05/02/19 12:25 Restoril 7.5 Mg Capsule PO 05/09/19 12:24 HSP PRN SLEEP OR INSOMNIA Warfarin Sodium 5 mg 05/03/19 22:00 Coumadin 5 Mg Tablet PO 06/02/19 21:59 QHS [facility] Discontinued Medications Generic Name Dose Route Start Last Admin Trade Name Freq PRN Reason Stop Dose Admin Furosemide 80 mg 05/02/19 17:16 Lasix 80 Mg Tablet PO 06/01/19 17:15 HSP PRN SWELLING Diltiazem HCl 125 mg in 125 mls @ 0 mls/hr 05/02/19 07:01 05/03/19 08:15 Cardizem Rtu Inj 125 Mg-D5w 125 Ml Premix IV 06/01/19 07:00 Infused CONTINUOUS PRN Titration THIS MED IS NOT "PRN" Protocol Titrate Sodium Chloride 1,000 mls @ 150 mls/hr 05/03/19 07:22 05/04/19 09:35 Nacl 0.9% 1000 Ml Iv Soln IV 06/02/19 07:21 Infused CONTINUOUS PRN Infusion THIS MED IS NOT "PRN" Pantoprazole Sodium 20 mg 05/03/19 06:[address] Tablet PO 06/02/19 05:59 Q6AM [facility] Pharmacy Consult 1 dose 05/03/19 09:17 Warfarin Pharmacy To Dose PO 06/02/19 09:16 .PHARMACY TO DOSE PRN THIS MED IS NOT "PRN" Protocol Potassium Chloride 40 meq 05/02/19 12:24 05/02/19 14:08 Klor-Con 10 Meq Tablet Er PO 05/02/19 12:25 40 meq NOW ONE Administration Potassium Chloride 40 meq 05/04/19 06:50 05/04/19 06:59 Klor-Con 10 Meq Tablet Er PO 05/04/19 06:51 40 meq NOW ONE Administration Medication/Allergy Home Medications: Acetaminophen [Tylenol 325 mg Tablet] 650 mg PO Q4HP PRN 05/02/19 Furosemide [Lasix 80 mg Tablet] 80 mg PO HSP PRN 05/02/19 Metoprolol Tartrate [Lopressor 50 mg Tablet] 25 mg PO BID 05/02/19 Omeprazole 40 mg PO QAM 05/02/19 Simvastatin 20 mg PO QHS 05/02/19 Warfarin Sodium [Coumadin 2.5 mg Tablet] 2.5 mg PO SUTUTH 05/02/19 Warfarin Sodium [Coumadin 5 mg Tablet] 5 mg PO QHS 05/02/19 Allergies/Adverse Reactions: No Known Drug Allergies Allergy (Unknown, Verified 05/02/19 06:31) bee stings Allergy (Uncoded 08/18/17 09:12) Review of Systems Review of Systems: Constitutional: Denies any fever chills or Reiger's. Co mplains of generalized fatigue and weakness. EYES: No history of amblyopia diplopia. No history of amaurosis fugax. EARS: No severe hearing loss. Notes of tinnitus. ENT is negative for nosebleeds or hayfever. Negative for odynophagia or dysphagia. No recurrent sore throats. SKIN: There is no skin rashes. The patient has skin cancer of the right leg that he wants surgically excised and removed. NECK: Is supple there is no neck stiffness. There is no lymphadenopathy. There is no goiter. LUNGS: There is no history of wheezing cough. He has shortness of breath secondary to atrial fibrillation with rapid response. No wheezing. No cough or sputum production. No history of sleep apnea. No history of COPD. HEART: History of atrial fibrillation and history of hypertension. No history of coronary artery disease. Denies any chest pain. Shortness of breath secondary to atrial fibrillation with rapid response. Denies any PND orthopnea. There is no syncope. There is no leg edema. GI: No history of cirrhosis. No history of abdominal pain. No history of cirrhosis. No history of GI bleed. No history of altered bowel movements. ENDOCRINE: No history of thyroid disease. No history of diabetes mellitus. No history of polydipsia polyuria. No history of heat or cold intolerance. RENAL: No history of hematuria pyuria or dysuria. No history of chronic kidney disease. MUSCULOSKELETAL: No history of arthritis. INTEGUMENTARY: History of skin cancer present. In the right lateral aspect of the midportion of the leg. QUALITY IMPROVEMENT ENGINEER: No history of TIA CVA. No history of headache seizures. History of cerebral palsy. The patient is wheelchair-bound. He uses a mechanized scooter. PSYCHIATRIC: No history of anxiety or depression. No history of suicidal ideation. No history of homicidal ideation. VASCULAR: No history of calf or buttock claudication but the patient does not walk. No history of peripheral vascular disease. Rest of the review of symptoms is negative for to current admission problems. Metabolic: History of morbid obesity present. History of hyperlipidemia present. Physical EXAMINATION: The patient is morbidly obese. In no acute distress. Selected Entries 05/04/19 12:24 Temperature 98.2 F Temperature Oral Source Pulse Rate 77 Respiratory 20 Rate Blood Pressure 124/67 Blood Pressure 86 Mean BP Location Right Arm BP Position Supine O2 Sat by Pulse 95 Oximetry Oxygen Delivery Room Air Method HEAD: Is atraumatic normocephalic. EYES: Pupils equal round regular reactive to light and accommodation. Extraocular movements are normal. There is no conjunctival pallor. EARS: Tympanic membranes are intact. External auditory canals are clear. NOSE: There is no deviated nasal septum. There is no inflammation nasal mucous membrane. MOUTH: Mucous membranes of mouth are moist. Tongue is moist. There is no ulcers. THROAT: There is no redness of the oropharynx. There is no exudates. SKIN: The patient has skin cancer mid lateral aspect of the right leg. This is been covered with dressing. There is no trace pedal edema bilaterally. NECK: Is supple. There is no JVD. Carotids are equal there is no bruit. There is no lymphadenopathy. There is no goiter. There is no accessory muscle respiration use. Trachea central. LUNGS: Is clear to auscultation percussion. HEART: S1-S2 is heard. There is no S3 gallop. There is no S4 gallop. There is systolic murmur left sternal border and the apex there is no rub. ABDOMEN: Soft. Nontender. There is no hepatosplenom egaly bowel sounds well heard. EXTREMITIES femorals are diminished. Leg pulses are diminished. There is no cyanosis or clubbing. QUALITY IMPROVEMENT ENGINEER the patient is conscious awake alert oriented x3. He has muscle wasting due to cerebral palsy. PSYCHIATRIC: Patient judgment insight intact his affect is normal. EKG: Atrial fibrillation with ventricular response of 107. Atypical left bundle branch block pattern. This is my interpretation of the EKG. Labs- Entire Visit 05/02/19 05/02/19 05/02/19 06:30 06:30 06:30 WBC 12.8 H RBC 5.99 H Hgb 15.9 Hct 47.6 MCV 80 MCH 26.5 L MCHC 33.3 RDW 14.4 H Plt Count 378 Lymph % (Auto) 19.9 Casey % (Auto) 9.5 Eos % (Auto) 0.5 Baso % (Auto) 0.8 Absolute Neuts (auto) 8.9 H Absolute Lymphs (auto) 2.6 Absolute Monos (auto) 1.2 Absolute Eos (auto) 0.1 Absolute Basos (auto) 0.1 Seg Neutrophils % 69.3 PT INR Sodium 134.9 L Potassium 3.1 L Chloride 94 L Carbon Dioxide 30 Anion Gap 11 BUN 16 Creatinine 0.35 L Est GFR ( Amer) > 60 Est GFR (MDRD) Non-Af > 60 Glucose 151 H POC Glucose Calcium 8.9 Magnesium Total Bilirubin 1.6 H Direct Bilirubin 0.5 H Neonat Total Bilirubin Not Reportable Neonat Direct Bilirubin Not Reportable Neonat Indirect Bili Not Reportable AST 41 ALT 25 Alkaline Phosphatase 84 Creatine Kinase 22 L CK-MB (CK-2) 0.24 Troponin I 0.067 NT-Pro-B Natriuret Pep Total Protein 8.3 H Albumin 4.0 TSH Urine Color Urine Appearance Urine pH Ur Specific [place] Urine Protein Urine Glucose (UA) Urine Ketones Urine Blood Urine Nitrite Urine Bilirubin Urine Urobilinogen Ur Leukocyte Esterase Urine WBC (Auto) Urine RBC (Auto) Urine Mucus (Auto) Urine Ascorbic Acid 05/02/19 05/02/19 05/02/19 06:30 06:30 06:30 WBC RBC Hgb Hct MCV MCH MCHC RDW Plt Count Lymph % (Auto) Casey % (Auto) Eos % (Auto) Baso % (Auto) Absolute Neuts (auto) Absolute Lymphs (auto) Absolute Monos (auto) Absolute Eos (auto) Absolute Basos (auto) Seg Neutrophils % PT 44.0 H INR 4.51 Sodium Potassium Chloride Carbon Dioxide Anion Gap BUN Creatinine Est GFR ( Amer) Est GFR (MDRD) Non-Af Glucose POC Glucose 146 H Calcium Magnesium Total Bilirubin Direct Bilirubin Neonat Total Bilirubin Neonat Direct Bilirubin Neonat Indirect Bili AST ALT Alkaline Phosphatase Creatine Kinase CK-MB (CK-2) Troponin I NT-Pro-B Natriuret Pep 2110 H Total Protein Albumin TSH Urine Color Urine Appearance Urine pH Ur Specific [place] Urine Protein Urine Glucose (UA) Urine Ketones Urine Blood Urine Nitrite Urine Bilirubin Urine Urobilinogen Ur Leukocyte Esterase Urine WBC (Auto) Urine RBC (Auto) Urine Mucus (Auto) Urine Ascorbic Acid 05/02/19 05/02/19 05/02/19 06:30 06:30 09:40 WBC RBC Hgb Hct MCV MCH MCHC RDW Plt Count Lymph % (Auto) Casey % (Auto) Eos % (Auto) Baso % (Auto) Absolute Neuts (auto) Absolute Lymphs (auto) Absolute Monos (auto) Absolute Eos (auto) Absolute Basos (auto) Seg Neutrophils % PT INR Sodium Potassium Chloride Carbon Dioxide Anion Gap BUN Creatinine Est GFR ( Amer) Est GFR (MDRD) Non-Af Glucose POC Glucose Calcium Magnesium 2.3 Total Bilirubin Direct Bilirubin Neonat Total Bilirubin Neonat Direct Bilirubin Neonat Indirect Bili AST ALT Alkaline Phosphatase Creatine Kinase CK-MB (CK-2) Troponin I 0.070 NT-Pro-B Natriuret Pep Total Protein Albumin TSH Cancelled Urine Color Urine Appearance Urine pH Ur Specific [place] Urine Protein Urine Glucose (UA) Urine Ketones Urine Blood Urine Nitrite Urine Bilirubin Urine Urobilinogen Ur Leukocyte Esterase Urine WBC (Auto) Urine RBC (Auto) Urine Mucus (Auto) Urine Ascorbic Acid 05/02/19 05/02/19 05/02/19 14:06 17:34 17:54 WBC RBC Hgb Hct MCV MCH MCHC RDW Plt Count Lymph % (Auto) Casey % (Auto) Eos % (Auto) Baso % (Auto) Absolute Neuts (auto) Absolute Lymphs (auto) Absolute Monos (auto) Absolute Eos (auto) Absolute Basos (auto) Seg Neutrophils % PT INR Sodium Potassium Chloride Carbon Dioxide Anion Gap BUN Creatinine Est GFR ( Amer) Est GFR (MDRD) Non-Af Glucose POC Glucose Calcium Magnesium Total Bilirubin Direct Bilirubin Neonat Total Bilirubin Neonat Direct Bilirubin Neonat Indirect Bili AST ALT Alkaline Phosphatase Creatine Kinase CK-MB (CK-2) Troponin I 0.089 NT-Pro-B Natriuret Pep Total Protein Albumin TSH 0.63 Urine Color DARK YELLOW Urine Appearance TURBID Urine pH 5.0 Ur Specific [place] 1.027 Urine Protein 30 H Urine Glucose (UA) NEGATIVE Urine Ketones 20 H Urine Blood SMALL H Urine Nitrite NEGATIVE Urine Bilirubin NEGATIVE Urine Urobilinogen 4.0 H Ur Leukocyte Esterase NEGATIVE Urine WBC (Auto) 16 Urine RBC (Auto) 5 Urine Mucus (Auto) MANY Urine Ascorbic Acid NEGATIVE 05/03/19 05/03/19 05/03/19 03:47 03:47 09:59 WBC 7.7 RBC 5.58 H Hgb 14.9 Hct 43.3 MCV 78 L MCH 26.7 L MCHC 34.4 RDW 14.8 H Plt Count 245 Lymph % (Auto) 25.9 Casey % (Auto) 12.7 Eos % (Auto) 1.8 Baso % (Auto) 1.0 Absolute Neuts (auto) 4.5 Absolute Lymphs (auto) 2.0 Absolute Monos (auto) 1.0 Absolute Eos (auto) 0.1 Absolute Basos (auto) 0.1 Seg Neutrophils % 58.6 PT 44.9 H INR 4.62 Sodium 132.8 L Potassium 3.6 Chloride 90 L Carbon Dioxide 30 Anion Gap 13 BUN 15 Creatinine 0.27 L Est GFR ( Amer) > 60 Est GFR (MDRD) Non-Af > 60 Glucose 112 H POC Glucose Calcium 8.8 Magnesium 2.0 Total Bilirubin 1.9 H Direct Bilirubin 0.6 H Neonat Total Bilirubin Not Reportable Neonat Direct Bilirubin Not Reportable Neonat Indirect Bili Not Reportable AST 27 ALT 22 Alkaline Phosphatase 69 Creatine Kinase CK-MB (CK-2) Troponin I NT-Pro-B Natriuret Pep Total Protein 7.4 Albumin 3.4 L TSH Urine Color Urine Appearance Urine pH Ur Specific [place] Urine Protein Urine Glucose (UA) Urine Ketones Urine Blood Urine Nitrite Urine Bilirubin Urine Urobilinogen Ur Leukocyte Esterase Urine WBC (Auto) Urine RBC (Auto) Urine Mucus (Auto) Urine Ascorbic Acid 05/03/19 05/04/19 05/04/19 09:59 04:18 04:18 WBC 7.0 RBC 5.60 H Hgb 14.8 Hct 42.8 MCV 77 L MCH 26.4 L MCHC 34.6 RDW 14.7 H Plt Count 258 Lymph % (Auto) Casey % (Auto) Eos % (Auto) Baso % (Auto) Absolute Neuts (auto) Absolute Lymphs (auto) Absolute Monos (auto) Absolute Eos (auto) Absolute Basos (auto) Seg Neutrophils % PT 40.9 H INR 4.11 Sodium 133.2 L Potassium 3.2 L Chloride 97 L Carbon Dioxide 30 Anion Gap 6 BUN 10 Creatinine 0.31 L Est GFR ( Amer) > 60 Est GFR (MDRD) Non-Af > 60 Glucose 99 POC Glucose Calcium 8.2 L Magnesium Total Bilirubin Direct Bilirubin Neonat Total Bilirubin Neonat Direct Bilirubin Neonat Indirect Bili AST ALT Alkaline Phosphatase Creatine Kinase CK-MB (CK-2) Troponin I NT-Pro-B Natriuret Pep Total Protein Albumin TSH Urine Color Urine Appearance Urine pH Ur Specific [place] Urine Protein Urine Glucose (UA) Urine Ketones Urine Blood Urine Nitrite Urine Bilirubin Urine Urobilinogen Ur Leukocyte Esterase Urine WBC (Auto) Urine RBC (Auto) Urine Mucus (Auto) Urine Ascorbic Acid Soft Tissue Neck CT 05/02/19 00:00 IMPRESSION: NO SIGNIFICANT FINDING IN THE SOFT TISSUES OF THE NECK. Chest X-Ray 05/02/19 07:00 IMPRESSION: No acute cardiopulmonary abnormality IMPRESSION/RECOMMENDATION: 1. Chronic atrial fibrillation. At present ventricular response seems to be controlled. Continue current treatment. Need to hold Coumadin in view of the INR being 4.11. 2. Hypertension: Blood pressure well controlled 3. Skin cancer: Basal cell carcinoma. Recommended surgical removal of the same. The patient has difficulty getting this done due to lack of transport. We will see if we can consult surgery and have it done this admission. Hence would hold the patient's Coumadin. If surgical option is a possibility may even reverse the INR with fresh frozen plasma and vitamin K, since the patient has no prior history of TIA or CVA. 4. Cerebral palsy. 5. Hyperlipidemia 6. Preoperative cardiac risk assessment. Medications reviewed. Medical regimen and management plan discussed with attending provider on the case. Medical decision making is a moderate to high complexity. 60 minutes spent as patient more than 50% of time spent in direct patient care. Will follow.
[2019-05-05 05:54] LABS: INTERNATIONAL RATION (INR) 2.89; PROTHROMBIN TIME 30.9 SEC (11.4-15.4)
[2019-05-05 06:06] LABS: ANION GAP 8 (5-19); BLOOD UREA NITROGEN 12 mg/dL (7-20); CALCIUM 8.4 mg/dL (8.4-10.2); CARBON DIOXIDE 29 mmol/L (22-30); CHLORIDE 99 mmol/L (98-107); GLUCOSE 104 mg/dL (75-110); POTASSIUM 3.6 mmol/L (3.6-5.0)
--- NOTE | 2019-05-05 09:06 | PDOC PROGRESS REPORT ---
Subjective Progress Note for:: 05/05/19 Subjective:: ESA AMADO is a 69 year old male past medical history of A. fib, dyslipidemia, hypertension, basal cell carcinoma right lower extremity, arthritis, wheelchair-bound due to cerebral palsy affecting bilateral lower extremities, presenting to ED complaining of shortness of breath. This morning patient woke up feeling short of breath, EMS was called and patient was noted to be in A. fib RVR, he was given a dose of Cardizem and was brought to ED with his pulse in the 90s, patient is stating that he is very compliant with his medication and denies being sick recently, denies any fever, chest pain, chills, nausea, vomiting, diarrhea, constipation or any urinary symptoms. Patient has right lower extremity anterior calderon basal cell skin cancer was supposed to get surgery by Dr. Simon filling station laborer however he has missed his appointment because his motorized wheelchair has stopped working and he has not been able to fix it. 05/03/2019. No acute events overnight. Shortness of breath has resolved, A. fib RVR has resolved, patient denies any fever, chills, nausea, vomiting. 05/04/2019. No acute events overnight. Shortness of breath has resolved, A. fib rate controlled, denies any fever, chills, nausea, vomiting, diarrhea, constipation or any urinary symptoms. 05/05/2019. No acute events overnight. Patient currently resting in bed no apparent distress, shortness of breath is improved, patient is scheduled for possible right lower extremity skin lesion removal by surgery. Denies any fever, chills, nausea, vomiting, diarrhea, constipation or any urinary symptoms. P.o. tolerant. Reason For Visit: SOB,AFIB RVR Physical Exam Vital Signs: Temp Pulse Resp BP Pulse Ox 97.3 F 81 20 122/73 96 05/05/19 03:31 05/05/19 06:38 05/05/19 03:31 05/05/19 03:31 05/05/19 03:31 Intake & Output 05/04/19 05/05/19 05/06/19 06:59 06:59 06:59 Intake Total 4186 2047 Output Total 0 Balance 4185 2047 Weight 122.6 kg 125.5 kg General appearance: PRESENT: no acute distress, well-developed, well-nourished Head exam: PRESENT: atraumatic, normocephalic Respiratory exam: PRESENT: clear to auscultation elena. ABSENT: rales, rhonchi, wheezes Cardiovascular exam: PRESENT: RRR. ABSENT: diastolic murmur, rubs, systolic murmur Extremities exam: PRESENT: full ROM. ABSENT: calf tenderness, clubbing, pedal edema Musculoskeletal exam: PRESENT: other - Right lower extremity contusion lesion. Neurological exam: PRESENT: alert, awake, oriented to person, oriented to place, oriented to time, oriented to situation, CN II-XII grossly intact, motor sensory deficit - Bilateral lower extremity contractures, paraparetic. Results Laboratory Results: 05/03/19 09:59 05/05/19 04:27 05/05/19 04:27 Sodium 135.6 L Potassium 3.6 Chloride 99 Carbon Dioxide 29 Anion Gap 8 BUN 12 Creatinine 0.37 L Est GFR ( Amer) > 60 Glucose 104 Calcium 8.4 Magnesium 1.9 05/02/19 05/02/19 05/02/19 06:30 06:30 06:30 Creatine Kinase 22 L CK-MB (CK-2) 0.24 Troponin I 0.067 NT-Pro-B Natriuret Pep 2110 H 05/02/19 05/02/19 09:40 17:54 Creatine Kinase CK-MB (CK-2) Troponin I 0.070 0.089 NT-Pro-B Natriuret Pep Impressions: Soft Tissue Neck CT 05/02/19 00:00 IMPRESSION: NO SIGNIFICANT FINDING IN THE SOFT TISSUES OF THE NECK. Chest X-Ray 05/02/19 07:00 IMPRESSION: No acute cardiopulmonary abnormality copyright 2011 1-4 [employer]- All Rights Reserved Assessment and Plan - Diagnosis (1) Atrial fibrillation with RVR Is this a current diagnosis for this admission?: Yes Plan: Rate controlled. Anticoagulated. Off of Cardizem drip. History of atrial fibrillation chronically anticoagulated with Coumadin. TSH WNL. Troponin 0.067, 0.070 respectively. Chest x-ray no acute abnormalities. EKG atrial fibrillation with left bundle branch block which appears to be chronic. BC CMP WNL. Afebrile. Continue beta-blockers, Coumadin with INR goal of 2-2.5. PRN IV beta-blockers. (2) History of cerebral palsy Is this a current diagnosis for this admission?: Yes Plan: Patient has cerebral palsy affecting bilateral lower extremities with multiple surgeries for tendon release. Uses a motorized wheelchair and living with his and stepdaughter. Continue supportive measures. brush worker consulted for any needs. (3) Poor personal hygiene Is this a current diagnosis for this admission?: Yes Plan: Patient is extremely unkempt with malodorous smell. I wonder if there is a component of neglect involved. Discharge planning consulted for possible placement. APS has been notified. (4) Hypertension Qualifiers: Hypertension type: essential hypertension Qualified Code(s): I10 - Essential (primary) hypertension Is this a current diagnosis for this admission?: Yes Plan: Euvolemic. Normotensive. Restart home meds. Adjust meds as needed. Outpatie nt PCP follow-up. (5) Hyperlipidemia Is this a current diagnosis for this admission?: Yes Plan: Restart home meds. (6) Basal cell carcinoma Qualifiers: Laterality: right Eyelid: lower Is this a current diagnosis for this admission?: Yes Plan: Right lower extremity anterior calderon basal cell carcinoma. Patient has a follow-up as outpatient with Dr. Moreau dermatology for possible surgery but unfortunately he has missed his appointment stating that his motorized wheelchair was not working. Dr. Monroy from surgery department has agreed to do possible bedside lesion removal today. (7) Decubitus ulcer Qualifiers: Pressure injury location: sacral region Pressure injury stage: stage 2 Qualified Code(s): L89.152 - Pressure ulcer of sacral region, stage 2 Is this a current diagnosis for this admission?: Yes Plan: Continue frequent repositioning, continue wound care. (8) Skin breakdown Is this a current diagnosis for this admission?: Yes Plan: Improving. Mild erythema. No sign of discharge. No sign of infection. Wound cultures growing Proteus mirabilis and gram-positive cocci in chains. Pansensitive. Patient presented with left anterior neck skin breakdown suspicion was raised for possible mass underlying the skin. CT neck with contrast negative for any masses or collections. Continue wound care. Continue mupirocin topical.
[2019-05-05] MEDS: FUROSEMIDE 40 MG TABLET PO SCH (09:07)
[2019-05-05] MEDS: METOPROLOL TARTRATE 25 MG TABLET PO SCH ×2 (09:07→21:28)
[2019-05-05] MEDS: PANTOPRAZOLE SODIUM 40 MG TABLET.DR PO SCH (09:07)
[2019-05-05] MEDS: POTASSIUM CHLORIDE 10 MEQ TABLET.ER PO SCH (09:07)
[2019-05-05] MEDS: MUPIROCIN 2% OINTMENT 22 GM TP SCH (09:47)
[2019-05-05] MEDS: OXYCODONE-ACETAMINOPHEN 5-325 MG TABLET PO PRN ×2 (15:53→20:01)
--- NOTE | 2019-05-05 18:13 | Progress Note ---
Provider Note Provider Note: CARDIOLOGY PROGRESS NOTE by Dr. Sveta Milner on 05/05/2019. SUBJECTIVE: The patient denies any chest pain or discomfort. There is no shortness of breath. There is no PND or orthopnea. There is no leg edema. The patient complains of sharp left knee pain. The knee does not appear to be swollen. The patient is off the Coumadin and INR is trending down but still in the therapeutic range. There is no bleeding on Coumadin. There is no TIA CVA symptoms. PHYSICAL EXAMINATION: The patient is morbidly obese. At present no acute distress. Selected Entries 05/05/19 16:17 Temperature 97.2 F Temperature Oral Source Pulse Rate 86 Respiratory 18 Rate Blood Pressure 123/80 Blood Pressure 94 Mean BP Location Right Arm BP Position Supine O2 Sat by Pulse 96 Oximetry Oxygen Delivery Room Air Method HEAD: Is atraumatic normocephalic. EYES: Pupils equal round regular reactive to light and accommodation. Extraocular movements are normal. There is no conjunctival pallor. EARS: Tympanic membranes are intact. External auditory canals are clear. NOSE: There is no deviated nasal septum. There is no inflammation nasal mucous membrane. MOUTH: Mucous membranes of mouth are moist. Tongue is moist. There is no ulcers. THROAT: There is no redness of the or opharynx. There is no exudates. SKIN: The patient has skin cancer mid lateral aspect of the right leg. This is been covered with dressing. There is no trace pedal edema bilaterally. NECK: Is supple. There is no JVD. Carotids are equal there is no bruit. There is no lymphadenopathy. There is no goiter. There is no accessory muscle respiration use. Trachea central. LUNGS: Is clear to aus cultation percussion. HEART: S1-S2 is heard. S1 is of variable intensity. There is no S3 gallop. There is no S4 gallop. There is systolic murmur left sternal border and the apex there is no rub. ABDOMEN: Soft. Nontender. There is no hepatosplenomegaly bowel sounds well heard. EXTREMITIES femorals are diminished. Leg pulses are diminished. There is no cyanosis or clubbing. 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 He has muscle wasting due to cerebral palsy. PSYCHIATRIC: Patient judgment insight intact his affect is normal. Labs- All tests 24 hr 05/05/19 05/05/19 04:27 04:27 PT 30.9 H INR 2.89 Sodium 135.6 L Potassium 3.6 Chloride 99 Carbon Dioxide 29 Anion Gap 8 BUN 12 Creatinine 0.37 L Est GFR ( Amer) > 60 Est GFR (MDRD) Non-Af > 60 Glucose 104 Calcium 8.4 Magnesium 1.[address] 05/02/19 00:00 IMPRESSION: NO SIGNIFICANT FINDING IN THE SOFT TISSUES OF THE NECK. Chest X-Ray 05/02/19 07:00 IMPRESSION: No acute cardiopulmonary abnormality copyright 2011 [employer]- All Rights Reserved IMPRESSION/RECOMMENDATION: 1. Chronic atrial fibrillation. At present ventricular response seems to be controlled. Continue current treatment. Need to hold Coumadin in view of the INR being 4.11. 2. Hypertension: Blood pressure well controlled 3. Skin cancer: Basal cell carcinoma. Recommended surgical removal of the same. The patient has difficulty getting this done due to lack of transport. We will see if we can consult surgery and have it done this admission. Hence would hold the patient's Coumadin. If surgical option is a possibility may even reverse the INR with fresh frozen plasma and vitamin K, since the patient has no prior history of TIA or CVA. 4. Cerebral palsy. 5. Hyperlipidemia 6. Preoperative cardiac risk assessment. The patient should be an acceptable risk, but will check an echo to make sure there is no abnormalities. Medications reviewed. Medical regimen and management plan discussed with attending physician. Medical decision making is of moderate complexity. Will check an echo which I have ordered for further 8 2 cardiac risk assessment for the patient surgery. If the patient's INR trends to acceptable levels the patient will have surgery tomorrow. 40 minutes spent on the patient with more than 50% time spent in direct patient care. Will follow.
--- NOTE | 2019-05-05 18:45 | PDOC PROGRESS REPORT ---
Subjective Progress Note for:: 05/05/19 Subjective:: Patient has no complaints Reason For Visit: SOB,AFIB RVR Physical Exam Vital Signs: Temp Pulse Resp BP Pulse Ox 97.6 F 86 16 139/81 H 95 05/05/19 12:10 05/05/19 13:40 05/05/19 12:10 05/05/19 12:10 05/05/19 12:10 Intake & Output 05/04/19 05/05/19 05/06/19 06:59 06:59 06:59 Intake Total 4186 8 1080 Output Total 0 Balance 6 2047 1080 Weight 122.6 kg 125.5 kg General appearance: PRESENT: no acute distress Skin exam: PRESENT: other - Right anterior leg =2-1/2 x 1 cm lesion upper one third Results Laboratory Results: 05/03/19 09:59 05/05/19 04:27 05/05/19 04:27 Sodium 135.6 L Potassium 3.6 Chloride 99 Carbon Dioxide 29 Anion Gap 8 BUN 12 Creatinine 0.37 L Est GFR ( Amer) > 60 Glucose 104 Calcium 8.4 Magnesium 1.9 05/02/19 05/02/19 05/02/19 06:30 06:30 06:30 Creatine Kinase 22 L CK-MB (CK-2) 0.24 Troponin I 0.067 NT-Pro-B Natriuret Pep 2110 H 05/02/19 05/02/19 09:40 17:54 Creatine Kinase CK-MB (CK-2) Troponin I 0.070 0.089 NT-Pro-B Natriuret Pep Impressions: Soft Tissue Neck CT 05/02/19 00:00 IMPRESSION: NO SIGNIFICANT FINDING IN THE SOFT TISSUES OF THE NECK. Chest X-Ray 05/02/19 07:00 IMPRESSION: No acute cardiopulmonary abnormality copyright 2011 [employer]- All Rights Reserved Assessment & Plan - Diagnosis (1) sKin lesion right anterior leg Is this a current diagnosis for this admission?: Yes - Time Time Spent with patient: 25-34 minutes - Plan Summary Plan Summary: Assessment: Right anterior leg skin lesion 2-1/2 x 1 cm Patient on Coumadin discontinued as yesterday None: Plan excision of right anterior leg lesion tomorrow morning We will check PT/INR tomorrow morning and proceed with surgery if the levels are acceptable
[2019-05-06 05:39] LABS: PROTHROMBIN TIME 22.1 SEC (11.4-15.4)
[2019-05-06] MEDS ORDERED: LIDOCAINE 1%/EPINEPHRINE INJ 20 ML VIAL INJ PRN (07:43)
--- NOTE | 2019-05-06 09:05 | Operative Report ---
Nonrecallable Operative Report DATE OF SURGERY: 05/06/19 PREOPERATIVE DIAGNOSIS: Right anterior leg skin lesion POSTOPERATIVE DIAGNOSIS: Same OPERATION: Excision of right anterior leg skin lesion during 3 x 1.5 cm SURGEON: CARRIE FELIX ANESTHESIA: Other TISSUE REMOVED OR ALTERED: Skin lesion of right anterior leg measuring 3 x 1.5 cm COMPLICATIONS: None ESTIMATED BLOOD LOSS: 20 mL's of 1% lidocaine with epinephrine INTRAOPERATIVE FINDINGS: 3 x 1.5 cm skin lesion on the right anterior leg PROCEDURE: The procedure was done at bedside. The area of interest was prepped with Betadine, infiltrated with local anesthetic as above, and a curvilinear incision was made on each side of the lesion. This was appropriate ly marked with sutures and removed from the surgical field and sent to pathology. The skin edges were closed with multiple interrupted 2-0 Prolene horizontal mattress sut ures. The area was cleaned with normal saline, sterile dressings were applied. The patient tolerated procedure well.
[2019-05-06] MEDS: FUROSEMIDE 40 MG TABLET PO SCH (09:08)
[2019-05-06] MEDS: METOPROLOL TARTRATE 25 MG TABLET PO SCH ×2 (09:09→21:27)
[2019-05-06] MEDS: PANTOPRAZOLE SODIUM 40 MG TABLET.DR PO SCH (09:09)
[2019-05-06] MEDS: MUPIROCIN 2% OINTMENT 22 GM TP SCH (09:11)
[2019-05-06] MEDS: POTASSIUM CHLORIDE 10 MEQ TABLET.ER PO SCH (09:12)
--- NOTE | 2019-05-06 10:38 | PDOC PROGRESS REPORT ---
Subjective Progress Note for:: 05/06/19 Reason For Visit: SOB,AFIB RVR 05/06/2019 Patient was admitted with shortness of breath and A. fib with RVR. Also a lesion on the right anterior leg Physical Exam Vital Signs: Temp Pulse Resp BP Pulse Ox 98.1 F 90 16 129/80 H 97 05/06/19 07:51 05/06/19 07:51 05/06/19 07:51 05/06/19 07:51 05/06/19 07:51 Intake & Output 05/05/19 05/06/19 05/07/19 06:59 06:59 06:59 Intake Total 2047 1080 Balance 8 1080 Weight 125.5 kg 123.1 kg General appearance: PRESENT: mild distress, other - Patient went back into A. fib briefly this morning, but was asymptomatic Respiratory exam: PRESENT: clear to auscultation elena. ABSENT: rales, rhonchi, wheezes Cardiovascular exam: PRESENT: RRR, other - For relief following the procedure this morning patient's heart rate went up to 150 and was given Lopressor. A symptomatic now. ABSENT: diastolic murmur, rubs, systolic murmur Neurological exam: PRESENT: alert, awake, oriented to person, oriented to place, oriented to time, oriented to situation, CN II-XII grossly intact. ABSENT: motor sensory deficit Psychiatric exam: PRESENT: appropriate affect, normal mood, other - Patient telling jokes to the nurses and myself. ABSENT: homicidal ideation, suicidal ideation Results Laboratory Results: 05/03/19 09:59 05/05/19 04:27 05/02/19 05/02/19 05/02/19 06:30 06:30 06:30 Creatine Kinase 22 L CK-MB (CK-2) 0.24 Troponin I 0.067 NT-Pro-B Natriuret Pep 2110 H 05/02/19 05/02/19 09:40 17:54 Creatine Kinase CK-MB (CK-2) Troponin I 0.070 0.089 NT-Pro-B Natriuret Pep Impressions: Soft Tissue Neck CT 05/02/19 00:00 IMPRESSION: NO SIGNIFICANT FINDING IN THE SOFT TISSUES OF THE NECK. Chest X-Ray 05/02/19 07:00 IMPRESSION: No acute cardiopulmonary abnormality copyright 2011 [email or web address]- All Rights Reserved Assessment and Plan - Diagnosis (1) Atrial fibrillation with RVR Is this a current diagnosis for this admission?: Yes (2) Basal cell carcinoma Qualifiers: Laterality: right Eyelid: lower Is this a current diagnosis for this admission?: Yes (4) History of cerebral palsy Is this a current diagnosis for this admission?: Yes (5) sKin lesion right anterior leg Is this a current diagnosis for this admission?: Yes - Plan Summary Summary: 05/06/2019 Vital signs temperature 97.6 pulse 98 blood pressure 109/67 O2 sat 96% on room a ir INR today is 1.9 Patient had a procedure done on his right anterior leg by general surgery. Path ology is pending. Presumably is what put him back into atrial fib, but did not last very long, or than 1 minute His also mentions that he has a lesion on his neck that he told the inclinometer tester about. Wound cultures from his neck in the ER showed Proteus is sensitive to everything except tetracycline. Patient is currently on no antibiotics therefore I will place him on Keflex 500 mg 3 times daily. We will wait on the pathology from the right lower leg for addressing anything else concerning skin lesions. he is currently taking Lopressor 25 mg every 12 hours We will keep patient in the hospital until we get the pathology back, and his atrial fib is stable - Time Time Spent with patient: 25-34 minutes
[2019-05-06 11:05] LABS: HEMOGLOBIN 13.9 g/dL (13.5-17.0); MEAN CORPUSCULAR HGB CONC 34.7 g/dL (32.0-36.0); MEAN CORPUSCULAR VOLUME 78 fl (80-97); PLATELET COUNT 349 10^3/uL (150-450); RED BLOOD COUNT 5.15 10^6/uL (4.35-5.55); RED CELL DISTRIBUTION WIDTH 14.6 % (11.5-14.0); WHITE BLOOD COUNT 5.5 10^3/uL (4.0-10.5)
[2019-05-06] MEDS: CEPHALEXIN 500 MG CAPSULE PO SCH ×2 (13:27→21:27)
[2019-05-06 15:44] LABS: APPEARANCE,URINE CLEAR; BILIRUBIN,URINE NEGATIVE (NEGATIVE); COLOR,URINE YELLOW; GLUCOSE, URINE NEGATIVE (NEGATIVE); KETONES,URINE NEGATIVE (NEGATIVE); PROTEIN,URINE NEGATIVE (NEGATIVE)
--- NOTE | 2019-05-06 16:46 | Progress Note ---
Provider Note Provider Note: CARDIOLOGY PROGRESS NOTE by Dr. Sveta Milner on 05/06/2019. SUBJECTIVE: The patient remains in atrial fibrillation with good: Ventricular response. He had his basal cell cancer lesion removed from his right leg. He is doing well postoperatively. His Coumadin will be restarted tonight. There is no ventricle arrhythmia seen on the monitor. The patient has no chest pain or discomfort. There is no shortness of breath. There is no PND orthopnea. PHYSICAL EXAMINATION: The patient is morbidly obese. In no acute distress Selected Entries 05/06/19 15:12 Temperature 97.3 F Temperature Oral Source Pulse Rate 97 Respiratory 16 Rate Blood Pressure 129/84 H Blood Pressure 99 Mean BP Location Left Arm BP Position Sitting O2 Sat by Pulse 96 Oximetry Oxygen Delivery Room Air Method HEAD: Is atraumatic normocephalic. EYES: Pupils equal round regular reactive to light and accommodation. Extraocular movements are normal. There is no conjunctival pallor. EARS: Tympanic membranes are intact. External auditory canals are clear. NOSE: There is no deviated nasal septum. There is no inflammation nasal mucous membrane. MOUTH: Mucous membranes of mouth are moist. Tongue is moist. There is no ulcers. THROAT: There is no redness of the oropharynx. There is no exudates. SKIN: The patient has skin cancer mid lateral aspect of the right leg. This is been covered with dressing. There is no trace pedal edema bilaterally. NECK: Is supple. There is no JVD. Carotids are equal there is no bruit. There is no lymphadenopathy. There is no goiter. There is no accessory muscle respiration use. Trachea central. LUNGS: Is clear to auscultation percussion. HEART: S1-S2 is heard. S1 is of variable intensity. There is no S3 gallop. There is no S4 gallop. There is systolic murmur left sternal border and the apex there is no rub. ABDOMEN: Soft. Nontender. There is no hepatosplenomegaly bowel sounds well heard. EXTREMITIES femorals are diminished. Leg pulses are diminished. There is no cyanosis or clubbing. 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 He has muscle wasting due to cerebral palsy. PSYCHIATRIC: Patient judgment insight intact his affect is normal. Labs- All tests 24 hr 05/06/19 05/06/19 05/06/19 04:14 10:39 15:25 WBC 5.5 RBC 5.15 Hgb 13.9 Hct 40.0 MCV 78 L MCH 27.0 MCHC 34.7 RDW 14.6 H Plt Count 349 PT 22.1 H INR 1.90 Urine Color YELLOW Urine Appearance CLEAR Urine pH 8.0 Ur Specific [place] 1.010 Urine Protein NEGATIVE Urine Glucose (UA) NEGATIVE Urine Ketones NEGATIVE Urine Blood SMALL H Urine Nitrite (Reflex) NEGATIVE Urine Bilirubin NEGATIVE Urine Urobilinogen 4.0 H Leukocyte Esterase Rfl NEGATIVE Urine RBC (Auto) 5 Urine Bacteria (Auto) TRACE Urine WBC (Reflex) 1 Squamous Epi Cells Auto <1 Urine Mucus (Auto) RARE Urine Ascorbic Acid NEGATIVE Soft Tissue Neck CT 05/02/19 00:00 IMPRESSION: NO SIGNIFICANT FINDING IN THE SOFT TISSUES OF THE NECK. Chest X-Ray 05/02/19 07:00 IMPRESSION: No acute cardiopulmonary abnormality IMPRESSION/RECOMMENDATION: 1. Chronic atrial fibrillation. At present ventricular response seems to be controlled. Continue current treatment. Agree with restarting the patient on Coumadin tonight. 2. Hypertension: Blood pressure well controlled 3. Skin cancer: Basal cell carcinoma. Patient is surgical removal of the lesion today he is stable after this. 4. Cerebral palsy. 5. Hyperlipidemia Medications reviewed. Medical regimen and management plan discussed with attending physician on the case. Medical decision making is a moderate complexity. 40 minutes spent on patient more than 50% time spent direct patient care. Will follow.
[2019-05-06] MEDS: WARFARIN SODIUM 5 MG TABLET PO SCH (21:27)
[2019-05-06] MEDS: OXYCODONE-ACETAMINOPHEN 5-325 MG TABLET PO PRN (21:28)
[2019-05-07 04:42] LABS: PROTHROMBIN TIME 18.3 SEC (11.4-15.4)
[2019-05-07] MEDS: CEPHALEXIN 500 MG CAPSULE PO SCH ×3 (06:18→22:02)
[2019-05-07] MEDS: OXYCODONE-ACETAMINOPHEN 5-325 MG TABLET PO PRN ×3 (06:29→22:01)
--- NOTE | 2019-05-07 09:05 | PDOC PROGRESS REPORT ---
Subjective Progress Note for:: 05/07/19 Subjective:: This is a 69-year-old male status post excision of a right lower extremity skin lesion. The patient denies leg pain, nausea, vomiting, abdominal distention, chest pain, shortness of breath, dizziness, malaise, or fatigue. Reason For Visit: SOB,AFIB RVR Physical Exam Vital Signs: Temp Pulse Resp BP Pulse Ox 98.2 F 79 18 134/78 H 99 05/07/19 07:10 05/07/19 07:10 05/07/19 07:10 05/07/19 07:10 05/07/19 07:10 Intake & Output 05/06/19 05/07/19 05/08/19 06:59 06:59 06:59 Intake Total 1080 660 Output Total 1075 Balance 1080 -415 Weight 123.1 kg 125.3 kg General appearance: PRESENT: no acute distress, obese Head exam: PRESENT: atraumatic, normocephalic Eye exam: PRESENT: EOMI, PERRLA. ABSENT: scleral icterus Mouth exam: PRESENT: moist, neck supple Neck exam: ABSENT: meningismus, tenderness, thyromegaly, tracheal deviation Respiratory exam: PRESENT: unlabored. ABSENT: chest wall tenderness, wheezes Cardiovascular exam: ABSENT: tachycardia GI/Abdominal exam: PRESENT: soft. ABSENT: distended, firm, tenderness Rectal exam: PRESENT: deferred Psychiatric exam: ABSENT: agitated, anxious, depressed Focused psych exam: ABSENT: delusional Skin exam: PRESENT: other - Right lower extremity incision is clean, dry, intact.. ABSENT: cyanosis, jaundice Results Laboratory Results: 05/06/19 10:39 05/05/19 04:27 05/06/19 05/06/19 10:39 15:25 WBC 5.5 RBC 5.15 Hgb 13.9 Hct 40.0 MCV 78 L MCH 27.0 MCHC 34.7 RDW 14.6 H Plt Count 349 Urine Color YELLOW Urine Appearance CLEAR Urine pH 8.0 Ur Specific [place] 1.010 Urine Protein NEGATIVE Urine Glucose (UA) NEGATIVE Urine Ketones NEGATIVE Urine Blood SMALL H Urine RBC (Auto) 5 05/02/19 16:30 Neck - Not Specified Gram Stain - Final 05/02/19 16:30 Neck - Not Specified Wound Culture - Final Proteus Mirabilis Enterococcus Faecalis(Group D) Enterobacter Cloacae 05/02/19 05/02/19 05/02/19 06:30 06:30 06:30 Creatine Kinase 22 L CK-MB (CK-2) 0.24 Troponin I 0.067 NT-Pro-B Natriuret Pep 2110 H 05/02/19 05/02/19 09:40 17:54 Creatine Kinase CK-MB (CK-2) Troponin I 0.070 0.089 NT-Pro-B Natriuret Pep Impressions: Soft Tissue Neck CT 05/02/19 00:00 IMPRESSION: NO SIGNIFICANT FINDING IN THE SOFT TISSUES OF THE NECK. Chest X-Ray 05/02/19 07:00 IMPRESSION: No acute cardiopulmonary abnormality copyright 2011 [employer]- All Rights Reserved Assessment & Plan - Diagnosis (1) Skin lesion of right leg Is this a current diagnosis for this admission?: Yes - Time Time Spent with patient: Less than 15 minutes - Plan Summary Plan Summary: This is a 69-year-old male status post bedside excision of a skin lesion of the right leg. The patient is doing well today. The pathology has not returned yet. His sutures are in place. His wound is clean, dry, and intact. Leave sutures in place for 10 to 14 days. The patient can follow-up in the office for suture removal. Surgery will sign off at this time. Please renotify with any questions or concerns.
[2019-05-07] MEDS: POTASSIUM CHLORIDE 10 MEQ TABLET.ER PO SCH (10:35)
[2019-05-07] MEDS: MUPIROCIN 2% OINTMENT 22 GM TP SCH (10:35)
[2019-05-07] MEDS: PANTOPRAZOLE SODIUM 40 MG TABLET.DR PO SCH (10:36)
[2019-05-07] MEDS: METOPROLOL TARTRATE 25 MG TABLET PO SCH ×2 (10:36→22:01)
[2019-05-07] MEDS: FUROSEMIDE 40 MG TABLET PO SCH (10:36)
--- NOTE | 2019-05-07 10:59 | PDOC PROGRESS REPORT ---
Subjective Progress Note for:: 05/07/19 Reason For Visit: SOB,AFIB RVR 05/07/2019 Ana admitted for shortness of breath atrial fib and probable skin cancer of the right leg Physical Exam Vital Signs: Temp Pulse Resp BP Pulse Ox 98.2 F 79 18 134/78 H 99 05/07/19 07:10 05/07/19 07:10 05/07/19 07:10 05/07/19 07:10 05/07/19 07:10 Intake & Output 05/06/19 05/07/19 05/08/19 06:59 06:59 06:59 Intake Total 1080 660 Output Total 1075 Balance 1080 -415 Weight 123.1 kg 125.3 kg General appearance: PRESENT: no acute distress Respiratory exam: PRESENT: clear to auscultation elena. ABSENT: rales, rhonchi, wheezes Cardiovascular exam: PRESENT: RRR. ABSENT: diastolic murmur, rubs, systolic murmur Extremities exam: PRESENT: full ROM. ABSENT: calf tenderness, clubbing, pedal edema Neurological exam: PRESENT: alert, awake, oriented to person, oriented to place, oriented to time, oriented to situation, CN II-XII grossly intact. ABSENT: motor sensory deficit Psychiatric exam: PRESENT: appropriate affect, normal mood. ABSENT: homicidal ideation, suicidal ideation Results Laboratory Results: 05/06/19 10:39 05/05/19 04:27 05/06/19 05/06/19 10:39 15:25 WBC 5.5 RBC 5.15 Hgb 13.9 Hct 40.0 MCV 78 L MCH 27.0 MCHC 34.7 RDW 14.6 H Plt Count 349 Urine Color YELLOW Urine Appearance CLEAR Urine pH 8.0 Ur Specific [place] 1.010 Urine Protein NEGATIVE Urine Glucose (UA) NEGATIVE Urine Ketones NEGATIVE Urine Blood SMALL H Urine RBC (Auto) 5 05/02/19 16:30 Neck - Not Specified Gram Stain - Final 05/02/19 16:30 Neck - Not Specified Wound Culture - Final Proteus Mirabilis Enterococcus Faecalis(Group D) Enterobacter Cloacae 05/02/19 05/02/19 05/02/19 06:30 06:30 06:30 Creatine Kinase 22 L CK-MB (CK-2) 0.24 Troponin I 0.067 NT-Pro-B Natriuret Pep 2110 H 05/02/19 05/02/19 09:40 17:54 Creatine Kinase CK-MB (CK-2) Troponin I 0.070 0.089 NT-Pro-B Natriuret Pep Impressions: Soft Tissue Neck CT 05/02/19 00:00 IMPRESSION: NO SIGNIFICANT FINDING IN THE SOFT TISSUES OF THE NECK. Chest X-Ray 05/02/19 07:00 IMPRESSION: No acute cardiopulmonary abnormality copyright 2010 [employer]- All Rights Reserved Assessment and Plan - Diagnosis (1) Atrial fibrillation with RVR Is this a current diagnosis for this admission?: Yes (2) Basal cell carcinoma Qualifiers: Laterality: right Eyelid: lower Is this a current diagnosis for this admission?: Yes (4) History of cerebral palsy Is this a current diagnosis for this admission?: Yes (5) sKin lesion right anterior leg Is this a current diagnosis for this admission?: Yes - Plan Summary Summary: 05/06/2019 Vital signs temperature 97.6 pulse 98 blood pressure 109/67 O2 sat 96% on room air INR today is 1.9 Patient had a procedure done on his right anterior leg by general surgery. Pathology is pending. Presumably is what put him back into atrial fib, but did not last very long, or than 1 minute His also mentions that he has a lesion on his neck that he told the lead scientist about. Wound cultures from his neck in the ER showed Proteus is sensitive to everything except tetracycline. Patient is currently on no antibiotics therefore I will place him on Keflex 500 mg 3 times daily. We will wait on the pathology from the right lower leg for addressing anything else concerning skin lesions. he is currently taking Lopressor 25 mg every 12 hours We will keep patient in the hospital until we get the pathology back, and his atrial fib is stable 05/07/2019 Surgery has signed off of the case and will see the patient as an outpatient Temperature 97.3 pulse 68 blood pressure 120/72 O2 sat 100% on room air She is back on his Coumadin at 5 mg nightly INR today is 1.50 Still awaiting pathology however I anticipate to discharge the patient from the hospital tomorrow on , 08 May. Patient will be medically ready and stable at that time. He needs to make a decision as to where they would like to send the patient, her home or a care home facility. According to physical therapy patient has no rehab potential. Herrera catheter will be discontinued at the time of discharge. Patient will be sent out on p.o. antibiotics - Time Time Spent with patient: 25-34 minutes
[2019-05-07 16:32] LABS: APPEARANCE,URINE CLEAR; BILIRUBIN,URINE NEGATIVE (NEGATIVE); COLOR,URINE YELLOW; GLUCOSE, URINE NEGATIVE (NEGATIVE); KETONES,URINE NEGATIVE (NEGATIVE); LEUKOCYTE ESTERASE,URINE TRACE (NEGATIVE); NITRITE,URINE NEGATIVE (NEGATIVE); PROTEIN,URINE NEGATIVE (NEGATIVE); URINE SPECIFIC GRAVITY 1.009
[2019-05-07] MEDS: WARFARIN SODIUM 5 MG TABLET PO SCH (22:02)
[2019-05-08 05:59] LABS: INTERNATIONAL RATION (INR) 1.37
[2019-05-08] MEDS: CEPHALEXIN 500 MG CAPSULE PO SCH ×3 (06:11→21:44)
[2019-05-08] MEDS: FUROSEMIDE 40 MG TABLET PO SCH (09:29)
[2019-05-08] MEDS: POTASSIUM CHLORIDE 10 MEQ TABLET.ER PO SCH (09:29)
[2019-05-08] MEDS: MUPIROCIN 2% OINTMENT 22 GM TP SCH (09:30)
[2019-05-08] MEDS: PANTOPRAZOLE SODIUM 40 MG TABLET.DR PO SCH (09:30)
[2019-05-08] MEDS: METOPROLOL TARTRATE 25 MG TABLET PO SCH ×2 (09:30→21:44)
[2019-05-08] MEDS ORDERED: ONDANSETRON HCL INJ/PF 4 MG/2 ML SDV IV PRN (10:00)
[2019-05-08] MEDS ORDERED: PROMETHAZINE HCL INJ 25 MG/1 ML VIAL IV PRN (10:00)
--- NOTE | 2019-05-08 11:10 | PDOC PROGRESS REPORT ---
Subjective Progress Note for:: 05/08/19 Reason For Visit: SOB,AFIB RVR 05/08/2019 Added for atrial fib with RVR, shortness of breath and lesion to the right lower leg Physical Exam Vital Signs: Temp Pulse Resp BP Pulse Ox 98.0 F 82 18 132/67 H 99 05/08/19 10:39 05/08/19 10:39 05/08/19 10:39 05/08/19 10:39 05/08/19 10:39 Intake & Output 05/07/19 05/08/19 05/09/19 06:59 06:59 06:59 Intake Total 660 1180 240 Output Total 1075 2550 350 Balance -415 -1370 -110 Weight 125.3 kg 125 kg General appearance: PRESENT: no acute distress Respiratory exam: PRESENT: clear to auscultation elena. ABSENT: rales, rhonchi, wheezes Cardiovascular exam: PRESENT: RRR. ABSENT: diastolic murmur, rubs, systolic murmur Neurological exam: PRESENT: alert, awake, oriented to person, oriented to place, oriented to time, oriented to situation, CN II-XII grossly intact. ABSENT: motor sensory deficit Psychiatric exam: PRESENT: appropriate affect, normal mood. ABSENT: homicidal ideation, suicidal ideation Results Laboratory Results: 05/06/19 10:39 05/05/19 04:27 05/07/19 15:50 Urine Color YELLOW Urine Appearance CLEAR Urine pH 7.0 Ur Specific [place] 1.009 Urine Protein NEGATIVE Urine Glucose (UA) NEGATIVE Urine Ketones NEGATIVE Urine Blood SMALL H Urine Nitrite NEGATIVE Ur Leukocyte Esterase TRACE H Urine WBC (Auto) 1 Urine RBC (Auto) 3 05/02/19 16:30 Neck - Not Specified Gram Stain - Final 05/02/19 16:30 Neck - Not Specified Wound Culture - Final Proteus Mirabilis Enterococcus Faecalis(Group D) Enterobacter Cloacae 05/02/19 05/02/19 05/02/19 06:30 06:30 06:30 Creatine Kinase 22 L CK-MB (CK-2) 0.24 Troponin I 0.067 NT-Pro-B Natriuret Pep 2110 H 05/02/19 05/02/19 09:40 17:54 Creatine Kinase CK-MB (CK-2) Troponin I 0.070 0.089 NT-Pro-B Natriuret Pep Impressions: Soft Tissue Neck CT 05/02/19 00:00 IMPRESSION: NO SIGNIFICANT FINDING IN THE SOFT TISSUES OF THE NECK. Chest X-Ray 05/02/19 07:00 IMPRESSION: No acute cardiopulmonary abnormality copyright 2011 [employer]- All Rights Reserved Assessment and Plan - Diagnosis (1) Atrial fibrillation with RVR Is this a current diagnosis for this admission?: Yes (2) Basal cell carcinoma Qualifiers: Laterality: right Eyelid: lower Is this a current diagnosis for this admission?: Yes (4) History of cerebral palsy Is this a current diagnosis for this admission?: Yes (5) sKin lesion right anterior leg Is this a current diagnosis for this admission?: Yes - Plan Summary Summary: 05/06/2019 Vital signs temperature 97.6 pulse 98 blood pressure 109/67 O2 sat 96% on room air INR today is 1.9 Patient had a procedure done on his right anterior leg by general surgery. Pathology is pending. Presumably is what put him back into atrial fib, but did not last very long, or than 1 minute His also mentions that he has a lesion on his neck that he told the senior lead java developer about. Wound cultures from his neck in the ER showed Proteus is sensitive to everything except tetracycline. Patient is currently on no antibiotics therefore I will place him on Keflex 500 mg 3 times daily. We will wait on the pathology from the right lower leg for addressing anything else concerning skin lesions. he is currently taking Lopressor 25 mg every 12 hours We will keep patient in the hospital until we get the pathology back, and his atrial fib is stable 05/07/2019 Surgery has signed off of the case and will see the patient as an outpatient Temperature 97.3 pulse 68 blood pressure 120/72 O2 sat 100% on room air She is back on his Coumadin at 5 mg nightly INR today is 1.50 Still awaiting pathology however I anticipate to discharge the patient from the hospital tomorrow on , 08 May. Patient will be medically ready and stable at that time. He needs to make a decision as to where they would like to send the patient, her home or a penitentiary facility. According to physical therapy patient has no rehab potential. Herrera catheter will be discontinued at the time of discharge. Patient will be sent out on p.o. antibiotics 05/08/2019 Patient's heart rate is stable no indication of atrial fib. Patient remains afebrile blood pressure stable O2 sat 99% on room air Excision of mass from the right lower leg appears to be clean and dry with no sign of infection. Patient will remain on Keflex 500 mg 3 times daily total of a 10-day course. Patient is basically medically stable to be discharge either to home or penitentiary facility either late today or tomorrow. Labs are grossly stable - Time Time Spent with patient: 15-24 minutes
[2019-05-08] MEDS: OXYCODONE-ACETAMINOPHEN 5-325 MG TABLET PO PRN ×2 (13:04→17:25)
[2019-05-08] MEDS ORDERED: NYSTATIN TOPICAL POWDER 15 GM TP PRN (14:02)
--- NOTE | 2019-05-08 18:21 | Progress Note ---
Provider Note Provider Note: CARDIOLOGY PROGRESS NOTE by Dr. Sveta Milner on 05/08/2019. SUBJECTIVE: The patient denies any chest pain discomfort. There is no complications from the surgical site of the right leg. He denies any shortness of breath PND orthopnea. There is no TIA CVA symptoms. The patient's INR is subtherapeutic at 1.37. The patient remains in chronic atrial fibrillation with controlled ventricular response. There is no ventricular arrhythmia seen on the monitor. PHYSICAL EXAMINATION: The patient morbidly obese in no acute distress. Selected Entries 05/08/19 10:39 Temperature 98.0 F Temperature Oral Source Pulse Rate 82 Respiratory 18 Rate Blood Pressure 132/67 H Blood Pressure 88 Mean BP Location Right Arm BP Position Supine O2 Sat by Pulse 99 Oximetry Oxygen Delivery Room Air Method HEAD: Is atraumatic normocephalic. EYES: Pupils equal round regular reactive to light and accommodation. Extraocular movements are normal. There is no conjunctival pallor. EARS: Tympanic membranes are intact. External auditory canals are clear. NOSE: There is no deviated nasal septum. There is no inflammation nasal mucous membrane. MOUTH: Mucous membranes of mouth are moist. Tongue is moist. There is no ulcers. THROAT: There is no redness of the oropharynx. There is no exudates. SKIN: The patient has skin cancer mid lateral aspect of the right leg. This is been covered with dressing. There is no trace pedal edema bilaterally. NECK: Is supple. There is no JVD. Carotids are equal there is no bruit. There is no lymphadenopathy. There is no goiter. There is no accessory muscle respiration use. Trachea central. LUNGS: Is clear to auscultation percussion. HEART: S1-S2 is heard. S1 is of variable intensity. There is no S3 gallop. There is no S4 gallop. There is systolic murmur left sternal border and the apex there is no rub. ABDOMEN: Soft. Nontender. There is no hepatosplenomegaly bowel sounds well heard. EXTREMITIES femorals are diminished. Leg pulses are diminished. There is no cyanosis or clubbing. 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 He has muscle wasting due to cerebral palsy. PSYCHIATRIC: Patient judgment insight intact his affect is normal. Labs- All tests 24 hr 05/08/19 04:56 PT 17.0 H INR 1.[address] 05/02/19 00:00 IMPRESSION: NO SIGNIFICANT FINDING IN THE SOFT TISSUES OF THE NECK. Chest X-Ray 05/02/19 07:00 IMPRESSION: No acute cardiopulmonary abnormality copyright 2010 [email or web address]- All Rights Reserved IMPRESSION/RECOMMENDATION: 1. Chronic atrial fibrillation. At present ventricular response seems to be controlled. Continue current treatment. Would recommend increasing the patient's dose of Coumadin until the INR is 2.0 or greater. At present INR is 1.37. 2. Hypertension: Blood pressure well controlled 3. Skin cancer: Basal cell carcinoma. Patient is surgical removal of the lesion today he is stable after this. 4. Cerebral palsy. 5. Hyperlipidemia Medications reviewed. Medical regimen and management plan discussed with the attending provider on the case. Medical decision making is now of moderate complexity. 40 minutes spent on patient with more than 50% of time spent in direct patient care.
[2019-05-08] MEDS ORDERED: WARFARIN SODIUM 7.5 MG TABLET PO SCH ×2 (22:00)
[2019-05-08] MEDS ORDERED: WARFARIN SODIUM 5 MG TABLET PO SCH (22:00)
[2019-05-09 05:27] LABS: HEMATOCRIT 41.4 % (37.9-51.0); HEMOGLOBIN 14.3 g/dL (13.5-17.0); MEAN CORPUSCULAR HGB CONC 34.5 g/dL (32.0-36.0); MEAN CORPUSCULAR VOLUME 78 fl (80-97); PLATELET COUNT 261 10^3/uL (150-450); RED CELL DISTRIBUTION WIDTH 14.9 % (11.5-14.0); WHITE BLOOD COUNT 7.1 10^3/uL (4.0-10.5)
[2019-05-09] MEDS: CEPHALEXIN 500 MG CAPSULE PO SCH ×3 (05:35→21:41)
[2019-05-09 05:46] LABS: INTERNATIONAL RATION (INR) 1.45; PROTHROMBIN TIME 17.8 SEC (11.4-15.4)
[2019-05-09] MEDS: OXYCODONE-ACETAMINOPHEN 5-325 MG TABLET PO PRN ×2 (07:05→21:54)
[2019-05-09] MEDS: PANTOPRAZOLE SODIUM 40 MG TABLET.DR PO SCH (08:34)
--- NOTE | 2019-05-09 10:40 | PDOC PROGRESS REPORT ---
Subjective Progress Note for:: 05/09/19 Reason For Visit: SOB,AFIB RVR 05/09/2019 Chronic A. fib with RVR, shortness of breath, basal cell cancer right lower leg Physical Exam Vital Signs: Temp Pulse Resp BP Pulse Ox 97.2 F 80 18 134/76 H 100 05/09/19 07:58 05/09/19 07:58 05/09/19 07:58 05/09/19 07:58 05/09/19 07:58 Intake & Output 05/08/19 05/09/19 05/10/19 06:59 06:59 06:59 Intake Total 1180 785 Output Total 2550 1350 Balance -1370 -565 Weight 125 kg 125.3 kg General appearance: PRESENT: no acute distress Respiratory exam: PRESENT: clear to auscultation elena. ABSENT: rales, rhonchi, wheezes Cardiovascular exam: PRESENT: RRR. ABSENT: diastolic murmur, rubs, systolic murmur Neurological exam: PRESENT: alert, awake, oriented to person, oriented to place, oriented to time, oriented to situation, CN II-XII grossly intact. ABSENT: motor sensory deficit Psychiatric exam: PRESENT: flat affect Results Laboratory Results: 05/09/19 04:26 05/05/19 04:27 05/09/19 04:26 WBC 7.1 RBC 5.30 Hgb 14.3 Hct 41.4 MCV 78 L MCH 27.0 MCHC 34.5 RDW 14.9 H Plt Count 261 05/02/19 05/02/19 05/02/19 06:30 06:30 06:30 Creatine Kinase 22 L CK-MB (CK-2) 0.24 Troponin I 0.067 NT-Pro-B Natriuret Pep 2110 H 05/02/19 05/02/19 09:40 17:54 Creatine Kinase CK-MB (CK-2) Troponin I 0.070 0.089 NT-Pro-B Natriuret Pep Impressions: Soft Tissue Neck CT 05/02/19 00:00 IMPRESSION: NO SIGNIFICANT FINDING IN THE SOFT TISSUES OF THE NECK. Chest X-Ray 05/02/19 07:00 IMPRESSION: No acute cardiopulmonary abnormality copyright 2011 [employer]- All Rights Reserved Assessment and Plan - Diagnosis (1) Atrial fibrillation with RVR Is this a current diagnosis for this admission?: Yes (2) Basal cell carcinoma Qualifiers: Laterality: right Eyelid: lower Is this a current diagnosis for this admission?: Yes (4) History of cerebral palsy Is this a current diagnosis for this admission?: Yes (5) sKin lesion right anterior leg Is this a current diagnosis for this admission?: Yes - Plan Summary Summary: 05/06/2019 Vital signs temperature 97.6 pulse 98 blood pressure 109/67 O2 sat 96% on room air INR today is 1.9 Patient had a procedure done on his right anterior leg by general surgery. Pathology is pending. Presumably is what put him back into atrial fib, but did not last very long, or than 1 minute His also mentions that he has a lesion on his neck that he told the barrel rifler broach about. Wound cultures from his neck in the ER showed Proteus is sensitive to everything except tetracycline. Patient is currently on no antibiotics therefore I will place him on Keflex 500 mg 3 times daily. We will wait on the pathology from the right lower leg for addressing anything else concerning skin lesions. he is currently taking Lopressor 25 mg every 12 hours We will keep patient in the hospital until we get the pathology back, and his atrial fib is stable 05/07/2019 Surgery has signed off of the case and will see the patient as an outpatient Temperature 97.3 pulse 68 blood pressure 120/72 O2 sat 100% on room air She is back on his Coumadin at 5 mg nightly INR today is 1.50 Still awaiting pathology however I anticipate to discharge the patient from the hospital tomorrow on , 08 May. Patient will be medically ready and stable at that time. He needs to make a decision as to where they would like to send the patient, her home or a group home facility. According to physical therapy patient has no rehab potential. Herrera catheter will be discontinued at the time of discharge. Patient will be sent out on p.o. antibiotics 05/08/2019 Patient's heart rate is stable no indication of atrial fib. Patient remains afebrile blood pressure stable O2 sat 99% on room air Excision of mass from the right lower leg appears to be clean and dry with no sign of infection. Patient will remain on Keflex 500 mg 3 times daily total of a 10-day course. Patient is basically medically stable to be discharge either to home or group home facility either late today or tomorrow. Labs are grossly stable 05/09/2019 Temperature 98 1, pulse 80 and regular, blood pressure 117/62, patient on room air with good saturation. INR this morning is up slightly to 1.45. We will continue Coumadin at 10 mg till patient is therapeutic Discharge planning is putting in a great deal of work and effort to try to place this patient that would benefit the patient most. Multiple daily discussions concerning this patient Patient is medically stable at this time Chemistry panel and CBC is normal. Currently on Keflex 500 mg 3 times daily - Time Time Spent with patient: 25-34 minutes
[2019-05-09] MEDS: MUPIROCIN 2% OINTMENT 22 GM TP SCH (10:46)
[2019-05-09] MEDS: METOPROLOL TARTRATE 25 MG TABLET PO SCH ×2 (10:47→21:41)
[2019-05-09] MEDS: POTASSIUM CHLORIDE 10 MEQ TABLET.ER PO SCH (10:47)
[2019-05-09] MEDS: FUROSEMIDE 40 MG TABLET PO SCH (10:47)
[2019-05-09 18:54] LABS: APPEARANCE,URINE CLEAR; BILIRUBIN,URINE NEGATIVE (NEGATIVE); COLOR,URINE YELLOW; GLUCOSE, URINE NEGATIVE (NEGATIVE); KETONES,URINE NEGATIVE (NEGATIVE); LEUKOCYTE ESTERASE,URINE NEGATIVE (NEGATIVE); NITRITE,URINE NEGATIVE (NEGATIVE); PROTEIN,URINE NEGATIVE (NEGATIVE); URINE SPECIFIC GRAVITY 1.006
[2019-05-09] MEDS: WARFARIN SODIUM 5 MG TABLET PO SCH (21:42)
--- NOTE | 2019-05-09 22:10 | Progress Note ---
Provider Note Provider Note: CARDIOLOGY PROGRESS NOTE by Dr. Sveta Milner on 05/09/2019. SUBJECTIVE: The patient remains in atrial fibrillation with controlled ventricular response. There is no chest pain or discomfort. There is no PND orthopnea. Efforts echo taking place to place the patient in a custodial situation. There is no bleeding on Coumadin. His INR is still subtherapeutic at 1.45. There is no TIA CVA symptoms. The dressing of the skin cancer incision site is clean and dry. There is no ventricular arrhythmia seen on the monitor. PHYSICAL EXAMINATION: The patient is morbidly obese. In no acute distress. Selected Entries 05/09/19 15:52 Temperature 97.5 F Temperature Oral Source Pulse Rate 82 Respiratory 20 Rate Blood Pressure 121/77 Blood Pressure 91 Mean BP Location Right Arm BP Position Supine O2 Sat by Pulse 96 Oximetry Oxygen Delivery Room Air Method HEAD: Is atraumatic normocephalic. EYES: Pupils equal round regular reactive to light and accommodation. Extraocular movements are normal. There is no conjunctival pallor. EARS: Tympanic membranes are intact. External auditory canals are clear. NOSE: There is no deviated nasal septum. There is no inflammation nasal mucous membrane. MOUTH: Mucous membranes of mouth are moist. Tongue is moist. There is no ulcers. THROAT: There is no redness of the oropharynx. There is no exudates. SKIN: The patient has skin cancer mid lateral aspect of the right leg. This is been covered with dressing. There is no trace pedal edema bilaterally. NECK: Is supple. There is no JVD. Carotids are equal there is no bruit. There is no lymphadenopathy. There is no goiter. There is no accessory muscle respiration use. Trachea central. LUNGS: Is clear to auscultation percussion. HEART: S1-S2 is heard. S1 is of variable intensity. There is no S3 gallop. There is no S4 gallop. There is systolic murmur left sternal border and the apex there is no rub. ABDOMEN: Soft. Nontender. There is no hepatosplenomegaly bowel sounds well heard. EXTREMITIES femorals are diminished. Leg pulses are diminished. There is no cyanosis or clubbing. 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 He has muscle wasting due to cerebral palsy. PSYCHIATRIC: Patient judgment insight intact his affect is normal. Labs- All tests 24 hr 0205/09/19 05/09/19 04:26 04:26 16:47 WBC 7.1 RBC 5.30 Hgb 14.3 Hct 41.4 MCV 78 L MCH 27.0 MCHC 34.5 RDW 14.9 H Plt Count 261 PT 17.8 H INR 1.45 Urine Color YELLOW Urine Appearance CLEAR Urine pH 7.0 Ur Specific [place] 1.006 Urine Protein NEGATIVE Urine Glucose (UA) NEGATIVE Urine Ketones NEGATIVE Urine Blood MODERATE H Urine Nitrite NEGATIVE Urine Bilirubin NEGATIVE Urine Urobilinogen 4.0 H Ur Leukocyte Esterase NEGATIVE Urine WBC (Auto) 1 Urine RBC (Auto) 2 Urine Mucus (Auto) RARE Urine Ascorbic Acid NEGATIVE Soft Tissue Neck CT 05/02/19 00:00 IMPRESSION: NO SIGNIFICANT FINDING IN THE SOFT TISSUES OF THE NECK. Chest X-Ray 05/02/19 07:00 IMPRESSION: No acute cardiopulmonary abnormality copyright 2011 [employer]- All Rights Reserved IMPRESSION/RECOMMENDATION: 1. Chronic atrial fibrillation. At present ventricular response seems to be controlled. Continue current treatment. Would recommend increasing the patient's dose of Coumadin until the INR is 2.0 or greater. At present INR is 1.37. 2. Hypertension: Blood pressure well controlled 3. Skin cancer: Basal cell carcinoma. Patient is surgical removal of the lesion today he is stable after this. 4. Cerebral palsy. 5. Hyperlipidemia Medications reviewed. Medical regimen and management plan discussed with the attending provider on the case. Medical decision making is now of moderate complexity. 40 minutes spent on patient with more than 50% of time spent in direct patient care.
[2019-05-10] MEDS: CEPHALEXIN 500 MG CAPSULE PO SCH ×3 (05:30→21:57)
[2019-05-10 08:20] LABS: INTERNATIONAL RATION (INR) 1.64; PROTHROMBIN TIME 19.6 SEC (11.4-15.4)
--- NOTE | 2019-05-10 10:11 | PDOC PROGRESS REPORT ---
Subjective Progress Note for:: 05/10/19 Reason For Visit: SOB,AFIB RVR 05/10/2019 Shortness of breath, A. fib with RVR, basal cell cancer right leg, cerebral palsy Physical Exam Vital Signs: Temp Pulse Resp BP Pulse Ox 97.3 F 90 16 136/73 H 99 05/10/19 03:36 05/10/19 07:00 05/10/19 03:36 05/10/19 03:36 05/10/19 03:36 Intake & Output 05/09/19 05/10/19 05/11/19 06:59 06:59 06:59 Intake Total 785 1491 Output Total 1350 5875 Balance -565 -884 Weight 125.3 kg 122.1 kg General appearance: PRESENT: no acute distress Respiratory exam: PRESENT: decreased breath sounds Cardiovascular exam: PRESENT: RRR. ABSENT: diastolic murmur, rubs, systolic murmur Extremities exam: PRESENT: other - No sign of infection Neurological exam: PRESENT: alert, awake, oriented to person, oriented to place, oriented to time, oriented to situation, CN II-XII grossly intact. ABSENT: motor sensory deficit Psychiatric exam: PRESENT: appropriate affect, normal mood. ABSENT: homicidal ideation, suicidal ideation Results Laboratory Results: 05/09/19 04:26 05/05/19 04:27 05/09/19 16:47 Urine Color YELLOW Urine Appearance CLEAR Urine pH 7.0 Ur Specific [place] 1.006 Urine Protein NEGATIVE Urine Glucose (UA) NEGATIVE Urine Ketones NEGATIVE Urine Blood MODERATE H Urine Nitrite NEGATIVE Ur Leukocyte Esterase NEGATIVE Urine WBC (Auto) 1 Urine RBC (Auto) 2 05/02/19 05/02/19 05/02/19 06:30 06:30 06:30 Creatine Kinase 22 L CK-MB (CK-2) 0.24 Troponin I 0.067 NT-Pro-B Natriuret Pep 2110 H 05/02/19 05/02/19 09:40 17:54 Creatine Kinase CK-MB (CK-2) Troponin I 0.070 0.089 NT-Pro-B Natriuret Pep Impressions: Soft Tissue Neck CT 05/02/19 00:00 IMPRESSION: NO SIGNIFICANT FINDING IN THE SOFT TISSUES OF THE NECK. Chest X-Ray 05/02/19 07:00 IMPRESSION: No acute cardiopulmonary abnormality copyright 2011 [employer]- All Rights Reserved Assessment and Plan - Diagnosis (1) Atrial fibrillation with RVR Is this a current diagnosis for this admission?: Yes (2) Basal cell carcinoma Qualifiers: Laterality: right Eyelid: lower Is this a current diagnosis for this admission?: Yes (4) History of cerebral palsy Is this a current diagnosis for this admission?: Yes (5) sKin lesion right anterior leg Is this a current diagnosis for this admission?: Yes (6) Degenerative joint disease of knee, left Is this a current diagnosis for this admission?: Yes - Plan Summary Summary: 05/06/2019 Vital signs temperature 97.6 pulse 98 blood pressure 109/67 O2 sat 96% on room air INR today is 1.9 Patient had a procedure done on his right anterior leg by general surgery. Pathology is pending. Presumably is what put him back into atrial fib, but did not last very long, or than 1 minute His also mentions that he has a lesion on his neck that he told the tariff clerk about. Wound cultures from his neck in the ER showed Proteus is sensitive to everything except tetracycline. Patient is currently on no antibiotics therefore I will place him on Keflex 500 mg 3 times daily. We will wait on the pathology from the right lower leg for addressing anything else concerning skin lesions. he is currently taking Lopressor 25 mg every 12 hours We will keep patient in the hospital until we get the pathology back, and his atrial fib is stable 05/07/2019 Surgery has signed off of the case and will see the patient as an outpatient Temperature 97.3 pulse 68 blood pressure 120/72 O2 sat 100% on room air She is back on his Coumadin at 5 mg nightly INR today is 1.50 Still awaiting pathology however I anticipate to discharge the patient from the hospital tomorrow on , 08 May. Patient will be medically ready and stable at that time. He needs to make a decision as to where they would like to send the patient, her home or a care home facility. According to physical therapy patient has no rehab potential. Herrera catheter will be discontinued at the time of discharge. Patient will be sent out on p.o. antibiotics 05/08/2019 Patient's heart rate is stable no indication of atrial fib. Patient remains afebrile blood pressure stable O2 sat 99% on room air Excision of mass from the right lower leg appears to be clean and dry with no sign of infection. Patient will remain on Keflex 500 mg 3 times daily total of a 10-day course. Patient is basically medically stable to be discharge either to home or care home facility either late today or tomorrow. Labs are grossly stable 05/09/2019 Temperature 98 1, pulse 80 and regular, blood pressure 117/62, patient on room air with good saturation. INR this morning is up slightly to 1.45. We will continue Coumadin at 10 mg till patient is therapeutic Discharge planning is putting in a great deal of work and effort to try to place this patient that would benefit the patient most. Multiple daily discussions concerning this patient Patient is medically stable at this time Chemistry panel and CBC is normal. Currently on Keflex 500 mg 3 times daily 05/10/2019 Patient's only complaint today is some left knee pain which occurred with turning in bed with nursing. Patient has had knee trouble in the past and in fact a total left knee replacement Patient is currently waiting on care home facility placement Temperature 97.3 pulse is 90 and regular blood pressure 136/73, O2 sat 99% on room air INR is going up to 1.64, have him on 10 mg nightly until it finally starts to bump up, which time I will go back down to 7.5 daily Other labs are stable Right leg incision looks clean and dry with no sign of infection - Time Time Spent with patient: 15-24 minutes
[2019-05-10] MEDS: PANTOPRAZOLE SODIUM 40 MG TABLET.DR PO SCH (11:00)
[2019-05-10] MEDS: MUPIROCIN 2% OINTMENT 22 GM TP SCH (11:00)
[2019-05-10] MEDS: FUROSEMIDE 40 MG TABLET PO SCH (11:00)
[2019-05-10] MEDS: OXYCODONE-ACETAMINOPHEN 5-325 MG TABLET PO PRN (11:00)
[2019-05-10] MEDS: POTASSIUM CHLORIDE 10 MEQ TABLET.ER PO SCH (11:00)
[2019-05-10] MEDS: METOPROLOL TARTRATE 25 MG TABLET PO SCH ×2 (11:00→21:57)
[2019-05-10] MEDS: WARFARIN SODIUM 5 MG TABLET PO SCH (21:57)
--- NOTE | 2019-05-10 22:17 | Progress Note ---
Provider Note Provider Note: CARDIOLOGY PROGRESS NOTE by Dr. Sveta Quiroz on 05/10/2019. SUBJECTIVE: The patient denies any chest pain or discomfort. There is no PND orthopnea. There is no bleeding on Coumadin. There is no TIA CVA symptoms. There is no leg edema. Still decision is being made as to whether to send the patient to a snf or not. There is no ventricle arrhythmia seen on the monitor. The patient's INR is slightly still slightly subtherapeutic. Physical EXAMINATION: The patient morbidly obese. In no acute distress. Selected Entries 05/10/19 11:55 Temperature 97.4 F Temperature Oral Source Pulse Rate 82 Respiratory 18 Rate Blood Pressure 125/70 Blood Pressure 88 Mean BP Location Right Wrist BP Position Supine O2 Sat by Pulse 98 Oximetry Oxygen Delivery Room Air Method HEAD: Is atraumatic normocephalic. EYES: Pupils equal round regular reactive to light and accommodation. Extraocular movements are normal. There is no conjunctival pallor. EARS: Tympanic membranes are intact. External auditory canals are clear. NOSE: There is no deviated nasal septum. There is no inflammation nasal mucous membrane. MOUTH: Mucous membranes of mouth are moist. Tongue is moist. There is no ulcers. THROAT: There is no redness of the oropharynx. There is no exudates. SKIN: The patient has skin cancer mid lateral aspect of the right leg. This is been covered with dressing. There is no trace pedal edema bilaterally. NECK: Is supple. There is no JVD. Carotids are equal there is no bruit. There is no lymphadenopathy. There is no goiter. There is no accessory muscle respiration use. Trachea central. LUNGS: Is clear to auscultation percussion. HEART: S1-S2 is heard. S1 is of variable intensity. There is no S3 gallop. There is no S4 gallop. There is systolic murmur left sternal border and the apex there is no rub. ABDOMEN: Soft. Non tender. There is no hepatosplenomegaly bowel sounds well heard. EXTREMITIES femorals are diminished. Leg pulses are diminished. There is no cyanosis or clubbing. 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 He has muscle wasting due to cerebral palsy. PSYCHIATRIC: Patient judgment insight intact his affect is normal. Labs- All tests 24 hr 05/10/19 07:34 PT 19.6 H INR 1.[address] 05/02/19 00:00 IMPRESSION: NO SIGNIFICANT FINDING IN THE SOFT TISSUES OF THE NECK. Chest X-Ray 05/02/19 07:00 IMPRESSION: No acute cardiopulmonary abnormality copyright 2010 [employer]- All Rights Reserved IMPRESSION/RECOMMENDATION: 1. Chronic atrial fibrillation. At present ventricular response seems to be controlled. Continue current treatment. Would recommend increasing the patient's dose of Coumadin until the INR is 2.0 or greater. At present INR is 1.37. 2. Hypertension: Blood pressure well controlled 3. Skin cancer: Basal cell carcinoma. Patient is surgical removal of the lesion today he is stable after this. 4. Cerebral palsy. 5. Hyperlipidemia Medications reviewed. Medical regimen and management plan discussed with the attending provider on the case. Medical decision making is now of moderate complexity. 40 minutes spent on patient with more than 50% of time spent in direct patient care.
[2019-05-11] MEDS: CEPHALEXIN 500 MG CAPSULE PO SCH ×3 (06:13→21:55)
[2019-05-11 08:32] LABS: INTERNATIONAL RATION (INR) 1.88; PROTHROMBIN TIME 21.9 SEC (11.4-15.4)
[2019-05-11] MEDS: POTASSIUM CHLORIDE 10 MEQ TABLET.ER PO SCH (10:13)
[2019-05-11] MEDS: FUROSEMIDE 40 MG TABLET PO SCH (10:13)
[2019-05-11] MEDS: PANTOPRAZOLE SODIUM 40 MG TABLET.DR PO SCH (10:13)
[2019-05-11] MEDS: OXYCODONE-ACETAMINOPHEN 5-325 MG TABLET PO PRN ×2 (10:13→22:28)
[2019-05-11] MEDS: METOPROLOL TARTRATE 25 MG TABLET PO SCH ×2 (10:13→21:55)
[2019-05-11] MEDS: MUPIROCIN 2% OINTMENT 22 GM TP SCH (10:15)
--- NOTE | 2019-05-11 11:29 | PDOC PROGRESS REPORT ---
Subjective Progress Note for:: 05/11/19 Reason For Visit: SOB,AFIB RVR 05/11/2019 Shortness of breath, atrial fib with RVR, basal cell cancer, obesity, cerebral palsy Physical Exam Vital Signs: Temp Pulse Resp BP Pulse Ox 98.4 F 78 18 132/73 H 95 05/11/19 09:53 05/11/19 09:53 05/11/19 09:53 05/11/19 09:53 05/11/19 09:53 Intake & Output 05/10/19 05/11/19 05/12/19 06:59 06:59 06:59 Intake Total 1491 1508 Output Total 2375 1175 Balance -884 333 Weight 122.1 kg 123.5 kg General appearance: PRESENT: no acute distress Respiratory exam: PRESENT: clear to auscultation elena. ABSENT: rales, rhonchi, wheezes Cardiovascular exam: PRESENT: RRR. ABSENT: diastolic murmur, rubs, systolic murmur Gentrourinary exam: PRESENT: other - Herrera catheter Neurological exam: PRESENT: alert, awake, oriented to person, oriented to place, oriented to time, oriented to situation, CN II-XII grossly intact. ABSENT: motor sensory deficit Psychiatric exam: PRESENT: depressed, flat affect Results Laboratory Results: 05/09/19 04:26 05/05/19 04:27 05/02/19 05/02/19 05/02/19 06:30 06:30 06:30 Creatine Kinase 22 L CK-MB (CK-2) 0.24 Troponin I 0.067 NT-Pro-B Natriuret Pep 2110 H 05/02/19 05/02/19 09:40 17:54 Creatine Kinase CK-MB (CK-2) Troponin I 0.070 0.089 NT-Pro-B Natriuret Pep Impressions: Soft Tissue Neck CT 05/02/19 00:00 IMPRESSION: NO SIGNIFICANT FINDING IN THE SOFT TISSUES OF THE NECK. Chest X-Ray 05/02/19 07:00 IMPRESSION: No acute cardiopulmonary abnormality copyright 2011 [employer]- All Rights Reserved Assessment and Plan - Diagnosis (1) Atrial fibrillation with RVR Is this a current diagnosis for this admission?: Yes (2) Basal cell carcinoma Qualifiers: Laterality: right Eyelid: lower Is this a current diagnosis for this admission?: Yes (4) History of cerebral palsy Is this a current diagnosis for this admission?: Yes (5) sKin lesion right anterior leg Is this a current diagnosis for this admission?: Yes (6) Degenerative joint disease of knee, left Is this a current diagnosis for this admission?: Yes - Plan Summary Summary: 05/06/2019 Vital signs temperature 97.6 pulse 98 blood pressure 109/67 O2 sat 96% on room air INR today is 1.9 Patient had a procedure done on his right anterior leg by general surgery. Pathology is pending. Presumably is what put him back into atrial fib, but did not last very long, or than 1 minute His also mentions that he has a lesion on his neck that he told the fiberglass technician about. Wound cultures from his neck in the ER showed Proteus is sensitive to everything except tetracycline. Patient is currently on no antibiotics therefore I will place him on Keflex 500 mg 3 times daily. We will wait on the pathology from the right lower leg for addressing anything else concerning skin lesions. he is currently taking Lopressor 25 mg every 12 hours We will keep patient in the hospital until we get the pathology back, and his atrial fib is stable 05/07/2019 Surgery has signed off of the case and will see the patient as an outpatient Temperature 97.3 pulse 68 blood pressure 120/72 O2 sat 100% on room air She is back on his Coumadin at 5 mg nightly INR today is 1.50 Still awaiting pathology however I anticipate to discharge the patient from the hospital tomorrow on , 08 May. Patient will be medically ready and stable at that time. He needs to make a decision as to where they would like to send the patient, her home or a half-way facility. According to physical therapy patient has no rehab potential. Herrera catheter will be discontinued at the time of discharge. Patient will be sent out on p.o. antibiotics 05/08/2019 Patient's heart rate is stable no indication of atrial fib. Patient remains afebrile blood pressure stable O2 sat 99% on room air Excision of mass from the right lower leg appears to be clean and dry with no sign of infection. Patient will remain on Keflex 500 mg 3 times daily total of a 10-day course. Patient is basically medically stable to be discharge either to home or half-way facility either late today or tomorrow. Labs are grossly stable 05/09/2019 Temperature 98 1, pulse 80 and regular, blood pressure 117/62, patient on room air with good saturation. INR this morning is up slightly to 1.45. We will continue Coumadin at 10 mg till patient is therapeutic Discharge planning is putting in a great deal of work and effort to try to place this patient that would benefit the patient most. Multiple daily discussions concerning this patient Patient is medically stable at this time Chemistry panel and CBC is normal. Currently on Keflex 500 mg 3 times daily 05/10/2019 Patient's only complaint today is some left knee pain which occurred with turning in bed with nursing. Patient has had knee trouble in the past and in fact a total left knee replacement Patient is currently waiting on half-way facility placement Temperature 97.3 pulse is 90 and regular blood pressure 136/73, O2 sat 99% on room air INR is going up to 1.64, have him on 10 mg nightly until it finally starts to bump up, which time I will go back down to 7.5 daily Other labs are stable Right leg incision looks clean and dry with no sign of infection 05/11/2019 Vital signs remained stable CBC appears grossly normal INR went from 1.64 yesterday to 1.88. We will continue Coumadin 10 mg every night until are as above 2 and then back off to 7.5 If half-way facility bed is available patient can be discharged Patient was originally admitted to the hospital on May 02 with a complaint of shortness of breath and secondary to atrial fib and RVR Patient has had no chest pain no shortness of breath for several days. Car diology agrees with plan of discharge - Time Time Spent with patient: 25-34 minutes
[2019-05-11] MEDS ORDERED: POLYETHYLENE GLYCOL 3350 POWDER 17 GM/1 PACKET PO PRN (15:03)
--- NOTE | 2019-05-11 20:16 | Progress Note ---
Provider Note Provider Note: CARDIOLOGY PROGRESS NOTE by Dr. Sveta Quiroz on 05/11/2019. SUBJECTIVE: The patient denies any chest pain or discomfort. He is in atrial fibrillation with controlled ventricular response. He INR is come up to 1.8. There is no bleeding on Coumadin. There is no TIA CVA symptoms. He complains of left knee pain. But the knee does not look acutely swollen or red. He is awaiting placement in a senior living. Physical EXAMINATION: The patient is morbidly obese. He is in no acute distress. Selected Entries 05/11/19 09:53 Temperature 98.4 F Temperature Axillary Source Pulse Rate 78 Respiratory 18 Rate Blood Pressure 132/73 H Blood Pressure 92 Mean BP Location Left Wrist BP Position Supine O2 Sat by Pulse 95 Oximetry Oxygen Delivery Room Air Method HEAD: Is atraumatic normocephalic. EYES: Pupils equal round regular reactive to light and accommodation. Extraocular movements are normal. There is no conjunctival pallor. EARS: Tympanic membranes are intact. External auditory canals are clear. NOSE: There is no deviated nasal septum. There is no inflammation nasal mucous membrane. MOUTH: Mucous membranes of mouth are moist. Tongue is moist. There is no ulcers. THROAT: There is no redness of the oropharynx. There is no exudates. SKIN: The patient has skin cancer mid lateral aspect of the right leg. This is been covered with dressing. There is no trace pedal edema bilaterally. NECK: Is supple. There is no JVD. Carotids are equal there is no bruit. There is no lymphadenopathy. There is no goiter. There is no accessory muscle respiration use. Trachea central. LUNGS: Is clear to auscultation percussion. HEART: S1-S2 is heard. S1 is of variable intensity. There is no S3 gallop. There is no S4 gallop. There is systolic murmur left sternal border and the apex there is no rub. ABDOMEN: Soft. Nontender. There is no hepatosplenomegaly bowel sounds well heard. EXTREMITIES femorals are diminished. Leg pulses are diminished. There is no cyanosis or clubbing. 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 He has muscle wasting due to cerebral palsy. PSYCHIATRIC: Patient judgment insight intact his affect is normal. Labs- All tests 24 hr 05/11/19 08:01 PT 21.9 H INR 1.[address] 05/02/19 00:00 IMPRESSION: NO SIGNIFICANT FINDING IN THE SOFT TISSUES OF THE NECK. Chest X-Ray 05/02/19 07:00 IMPRESSION: No acute cardiopulmonary abnormality copyright 2010 [employer]- All Rights Reserved IMPRESSION/RECOMMENDATION: 1. Chronic atrial fibrillation. At present ventricular response seems to be controlled. Continue current treatment. Would recommend increasing the patient's dose of Coumadin until the INR is 2.0 or greater. At present INR is 1.37. 2. Hypertension: Blood pressure well controlled 3. Skin cancer: Basal cell carcinoma. Patient is surgical removal of the lesion today he is stable after this. 4. Cerebral palsy. 5. Hyperlipidemia Medications reviewed. Medical regimen and management plan discussed with the attending provider on the case. Medical decision making is now of moderate complexity. 40 minutes spent on patient with more than 50% of time spent in direct patient care. Cardiac status is stable. Will sign off and follow the patient in the office.
[2019-05-11] MEDS: WARFARIN SODIUM 5 MG TABLET PO SCH (21:55)
[2019-05-12] MEDS: OXYCODONE-ACETAMINOPHEN 5-325 MG TABLET PO PRN ×3 (05:32→22:13)
[2019-05-12] MEDS: CEPHALEXIN 500 MG CAPSULE PO SCH ×3 (05:32→22:09)
[2019-05-12 08:29] LABS: HEMATOCRIT 42.3 % (37.9-51.0); HEMOGLOBIN 14.3 g/dL (13.5-17.0); MEAN CORPUSCULAR HEMOGLOBIN 26.8 pg (27.0-33.4); MEAN CORPUSCULAR HGB CONC 33.9 g/dL (32.0-36.0); MEAN CORPUSCULAR VOLUME 79 fl (80-97); PLATELET COUNT 245 10^3/uL (150-450); RED BLOOD COUNT 5.36 10^6/uL (4.35-5.55); RED CELL DISTRIBUTION WIDTH 15.2 % (11.5-14.0); WHITE BLOOD COUNT 8.9 10^3/uL (4.0-10.5)
[2019-05-12 08:33] LABS: INTERNATIONAL RATION (INR) 1.94; PROTHROMBIN TIME 22.4 SEC (11.4-15.4)
--- NOTE | 2019-05-12 09:09 | PDOC PROGRESS REPORT ---
Subjective Progress Note for:: 05/12/19 Reason For Visit: SOB,AFIB RVR 05/12/2019 Hypercoagulopathy, shortness of breath, A. fib with RVR, basal cell carcinoma right lower extremity, cerebral palsy Physical Exam Vital Signs: Temp Pulse Resp BP Pulse Ox 97.4 F 88 16 138/81 H 98 05/12/19 03:51 05/12/19 07:00 05/12/19 03:51 05/12/19 03:51 05/12/19 03:51 Intake & Output 05/11/19 05/12/19 05/13/19 06:59 06:59 06:59 Intake Total 1508 2281 Output Total 1175 1000 Balance 333 1281 Weight 123.5 kg General appearance: PRESENT: no acute distress, other - Nothing acute patient is dealing with his chronic problems Respiratory exam: PRESENT: decreased breath sounds Cardiovascular exam: PRESENT: RRR. ABSENT: diastolic murmur, rubs, systolic murmur Neurological exam: PRESENT: alert, awake, oriented to person, oriented to place, oriented to time, oriented to situation, CN II-XII grossly intact, other - Patient has neurologic deficits secondary to cerebral palsy. ABSENT: motor sensory deficit Psychiatric exam: PRESENT: depressed - Patient is depressed over having to go to a [facility], flat affect Results Laboratory Results: 05/12/19 07:00 05/05/19 04:27 05/12/19 07:00 WBC 8.9 RBC 5.36 Hgb 14.3 Hct 42.3 MCV 79 L MCH 26.8 L MCHC 33.9 RDW 15.2 H Plt Count 245 05/02/19 05/02/19 05/02/19 06:30 06:30 06:30 Creatine Kinase 22 L CK-MB (CK-2) 0.24 Troponin I 0.067 NT-Pro-B Natriuret Pep 2110 H 05/02/19 05/02/19 09:40 17:54 Creatine Kinase CK-MB (CK-2) Troponin I 0.070 0.089 NT-Pro-B Natriuret Pep Impressions: Soft Tissue Neck CT 05/02/19 00:00 IMPRESSION: NO SIGNIFICANT FINDING IN THE SOFT TISSUES OF THE NECK. Chest X-Ray 05/02/19 07:00 IMPRESSION: No acute cardiopulmonary abnormality copyright 2011 [email or web address]- All Rights Reserved Assessment and Plan - Diagnosis (1) Atrial fibrillation with RVR Is this a current diagnosis for this admission?: Yes (2) Basal cell carcinoma Qualifiers: Laterality: right Eyelid: lower Is this a current diagnosis for this admission?: Yes (4) History of cerebral palsy Is this a current diagnosis for this admission?: Yes (5) sKin lesion right anterior leg Is this a current diagnosis for this admission?: Yes (6) Degenerative joint disease of knee, left Is this a current diagnosis for this admission?: Yes (7) Hypercoagulopathy Is this a current diagnosis for this admission?: Yes (8) History of Coumadin therapy Is this a current diagnosis for this admission?: Yes - Plan Summary Summary: 05/06/2019 Vital signs temperature 97.6 pulse 98 blood pressure 109/67 O2 sat 96% on room air INR today is 1.9 Patient had a procedure done on his right anterior leg by general surgery. Pathology is pending. Presumably is what put him back into atrial fib, but did not last very long, or than 1 minute His also mentions that he has a lesion on his neck that he told the de atologist about. Wound cultures from his neck in the ER showed Proteus is sensitive to everything except tetracycline. Patient is currently on no antibiotics therefore I will place him on Keflex 500 mg 3 times daily. We will wait on the pathology from the right lower leg for addressing anything else concerning skin lesions. he is currently taking Lopressor 25 mg every 12 hours We will keep patient in the hospital until we get the pathology back, and his atrial fib is stable 05/07/2019 Surgery has signed off of the case and will see the patient as an outpatient Temperature 97.3 pulse 68 blood pressure 120/72 O2 sat 100% on room air She is back on his Coumadin at 5 mg nightly INR today is 1.50 Still awaiting pathology however I anticipate to discharge the patient from the hospital tomorrow on , 08 May. Patient will be medically ready and stable at that time. He needs to make a decision as to where they would like to send the patient, her home or a [facility] facility. According to physical therapy patient has no rehab potential. Herrera catheter will be discontinued at the time of discharge. Patient will be sent out on p.o. antibiotics 05/08/2019 Patient's heart rate is stable no indication of atrial fib. Patient remains afebrile blood pressure stable O2 sat 99% on room air Excision of mass from the right lower leg appears to be clean and dry with no sign of infection. Patient will remain on Keflex 500 mg 3 times daily total of a 10-day course. Patient is basically medically stable to be discharge either to home or [facility] facility either late today or tomorrow. Labs are grossly stable 05/09/2019 Temperature 98 1, pulse 80 and regular, blood pressure 117/62, patient on room air with good saturation. INR this morning is up slightly to 1.45. We will continue Coumadin at 10 mg till patient is therapeutic Discharge planning is putting in a great deal of work and effort to try to place this patient that would benefit the patient most. Multiple daily discussions concerning this patient Patient is medically stable at this time Chemistry panel and CBC is normal. Currently on Keflex 500 mg 3 times daily 05/10/2019 Patient's only complaint today is some left knee pain which occurred with turning in bed with nursing. Patient has had knee trouble in the past and in fact a total left knee replacement Patient is currently waiting on [facility] facility placement Temperature 97.3 pulse is 90 and regular blood pressure 136/73, O2 sat 99% on room air INR is going up to 1.64, have him on 10 mg nightly until it finally starts to bump up, which time I will go back down to 7.5 daily Other labs are stable Right leg incision looks clean and dry with no sign of infection 05/11/2019 Vital signs remained stable CBC appears grossly normal INR went from 1.64 yesterday to 1.88. We will continue Coumadin 10 mg every night until are as above 2 and then back off to 5. patient was hyper coagulated when he arrived at INR of 4.5 If [facility] facility bed is available patient can be discharged Patient was originally admitted to the hospital on May 02 with a complaint of shortness of breath and secondary to atrial fib and RVR Patient has had no chest pain no shortness of breath for several days. Cardiology agrees with plan of discharge 05/12/2019 Patient remains afebrile has not had a temperature entire hospitalization Pulse is remaining stable between 80 and 90 with no signs of atrial fib Blood pressures remaining stable approximately 140/80 Patient remains on room air with good saturations Patient's INR is up to 1.94 on 10 mg of Coumadin every night. As soon as patient reaches 2 I would recommend backing off to 5 mg nightly. Patient came in he was alternating between 5 mg and 7.5 mg and on admission his INR was elevated at 4.5 This is day 7 of his Keflex 500 mg 3 times daily, for his Proteus in the in the wound culture that was done in the ER of his neck. Going to stop his Keflex after today's dosing. I am hoping that we can get placement for this patient today. Patient has basically been a candidate for physical therapy for the last 3 years. Patient is medically stable from his atrial fib/this of breath which was his presenting problem to the ER - Time Time Spent with patient: 35 or more minutes
[2019-05-12] MEDS: MUPIROCIN 2% OINTMENT 22 GM TP SCH (09:10)
[2019-05-12] MEDS: PANTOPRAZOLE SODIUM 40 MG TABLET.DR PO SCH (09:10)
[2019-05-12] MEDS: POTASSIUM CHLORIDE 10 MEQ TABLET.ER PO SCH (09:10)
[2019-05-12] MEDS: FUROSEMIDE 40 MG TABLET PO SCH (09:10)
[2019-05-12] MEDS: METOPROLOL TARTRATE 25 MG TABLET PO SCH ×2 (09:10→22:11)
--- NOTE | 2019-05-12 16:18 | PDOC DISCHARGE SUMMARY ---
Impression - Admit/DC Date/PCP Admission Date/Primary Care Provider: 05/02/19 10:08 DIANA VELAZCO MD Discharge Date: 05/13/19 - Discharge Diagnosis (1) Atrial fibrillation with RVR Is this a current diagnosis for this admission?: Yes (2) Basal cell carcinoma Is this a current diagnosis for this admission?: Yes (4) History of cerebral palsy Is this a current diagnosis for this admission?: Yes (5) sKin lesion right anterior leg Is this a current diagnosis for this admission?: Yes (6) Degenerative joint disease of knee, left Is this a current diagnosis for this admission?: Yes (7) Hypercoagulopathy Is this a current diagnosis for this admission?: Yes (8) History of Coumadin therapy Is this a current diagnosis for this admission?: Yes - Assessment Summary: 05/06/2019 Vital signs temperature 97.6 pulse 98 blood pressure 109/67 O2 sat 96% on room air INR today is 1.9 Patient had a procedure done on his right anterior leg by general surgery. Pathology is pending. Presumably is what put him back into atrial fib, but did not last very long, or than 1 minute His also mentions that he has a lesion on his neck that he told the director product management about. Wound cultures from his neck in the ER showed Proteus is sensitive to everything except tetracycline. Patient is currently on no antibiotics therefore I will place him on Keflex 500 mg 3 times daily. We will wait on the pathology from the right lower leg for addressing anything else concerning skin lesions. he is currently taking Lopressor 25 mg every 12 hours We will keep patient in the hospital until we get the pathology back, and his atrial fib is stable 05/07/2019 Surgery has signed off of the case and will see the patient as an outpatient Temperature 97.3 pulse 68 blood pressure 120/72 O2 sat 100% on room air She is back on his Coumadin at 5 mg nightly INR today is 1.50 Still awaiting pathology however I anticipate to discharge the patient from the hospital tomorrow on , 08 May. Patient will be medically ready and stable at that time. He needs to make a decision as to where they would like to send the patient, her home or a custodial facility. According to physical therapy patient has no rehab potential. Herrera catheter will be discontinued at the time of discharge. Patient will be sent out on p.o. antibiotics 05/08/2019 Patient's heart rate is stable no indication of atrial fib. Patient remains afebrile blood pressure stable O2 sat 99% on room air Excision of mass from the right lower leg appears to be clean and dry with no sign of infection. Patient will remain on Keflex 500 mg 3 times daily total of a 10-day course. Patient is basically medically stable to be discharge either to home or custodial facility either late today or tomorrow. Labs are grossly stable 05/09/2019 Temperature 98 1, pulse 80 and regular, blood pressure 117/62, patient on room air with good saturation. INR this morning is up slightly to 1.45. We will continue Coumadin at 10 mg till patient is therapeutic Discharge planning is putting in a great deal of work and effort to try to place this patient that would benefit the patient most. Multiple daily discussions concerning this patient Patient is medically stable at this time Chemistry panel and CBC is normal. Currently on Keflex 500 mg 3 times daily 05/10/2019 Patient's only complaint today is some left knee pain which occurred with turning in bed with nursing. Patient has had knee trouble in the past and in fact a total left knee replacement Patient is currently waiting on custodial facility placement Temperature 97.3 pulse is 90 and regular blood pressure 136/73, O2 sat 99% on room air INR is going up to 1.64, have him on 10 mg nightly until it finally starts to bump up, which time I will go back down to 7.5 daily Other labs are stable Right leg incision looks clean and dry with no sign of infection 05/11/2019 Vital signs remained stable CBC appears grossly normal INR went from 1.64 yesterday to 1.88. We will continue Coumadin 10 mg every night until are as above 2 and then back off to 5. patient was hyper coagulated when he arrived at INR of 4.5 If custodial facility bed is available patient can be discharged Patient was originally admitted to the hospital on May 02 with a complaint of shortness of breath and secondary to atrial fib and RVR Patient has had no chest pain no shortness of breath for several days. Cardiology agrees with plan of discharge 05/12/2019 Patient remains afebrile has not had a temperature entire hospitalization Pulse is remaining stable between 80 and 90 with no signs of atrial fib Blood pressures remaining stable approximately 140/80 Patient remains on room air with good saturations Patient's INR is up to 1.94 on 10 mg of Coumadin every night. As soon as patient reaches 2 I would recommend backing off to 2.5 mg nightly. Patient came in he was alternating between 5 mg and 2.5 mg and on admission his INR was elevated at 4.5 This is day 7 of his Keflex 500 mg 3 times daily, for his Proteus in the in the wound culture that was done in the ER of his neck. Going to stop his Keflex after today's dosing. I am hoping that we can get placement for this patient today. Patient has basically been a candidate for physical therapy for the last 3 years. Patient is medically stable from his atrial fib/this of breath which was his presenting problem to the ER Addendum patient was denied rehab today and family does not want him to go to custodial. For he is being discharged to home tomorrow May 13. I am sending him home on Coumadin 2.5 mg nightly he is to have another PT/INR checked this week by his primary care provider. He has an appointment already set up. Last INR today was 1.94 he was taking 10 mg nightly for the last 3 nights. We are setting up home health 3 times per week. This will include custodial, wound care, physical therapy, well as a bedside commode. Also professor of social work and an aide. Patient will also need a new sling for his Lizette this will be a "toileting "sling. Final diagnosis is shortness of breath, atrial fib with RVR, hypercoagulopathy, cerebral palsy, basal cell skin cancer right lower extremity - Additional Information Resuscitation Status: Full Code Discharge Diet: Cardiac Discharge Activity: Activity As Tolerated Referrals: DIANA VELAZCO MD [Primary Care Provider] - 05/14/19 2:00 pm Prescriptions: Mupirocin [Bactroban 2% Ointment 22 gm] 1 applic TP DAILY 30 Days #1 tube Warfarin Sodium [Coumadin 2.5 mg Tablet] 2.5 mg PO QHS 30 Days #30 Warfarin Sodium [Coumadin 2.5 mg Tablet] 2.5 mg PO QHS #30 tablet Potassium Chloride [Klor-Con 10 Meq Tablet ER] 20 meq PO DAILY 30 Days #60 tablet.er Nystatin [Mycostatin Topical Powder 15 gm] 1 applic TP BIDP PRN 30 Days #1 bottle PRN Reason: Home Medications: Acetaminophen [Tylenol 325 mg Tablet] 650 mg PO Q4HP PRN 05/02/19 Furosemide [Lasix 80 mg Tablet] 80 mg PO HSP PRN 05/02/19 Metoprolol Tartrate [Lopressor 50 mg Tablet] 25 mg PO BID 05/02/19 Omeprazole 40 mg PO QAM 05/02/19 Simvastatin 20 mg PO QHS 05/02/19 Acetaminophen with Codeine [Tylenol #3 Tablet] 1 tab PO Q8HP PRN 05/03/19 Mupirocin [Bactroban 2% Ointment 22 gm] 1 applic TP DAILY 30 Days #1 tube 05/12/19 Nystatin [Mycostatin Topical Powder 15 gm] 1 applic TP BIDP PRN 30 Days #1 bottle 05/12/19 Polyethylene Glycol 3350 [Miralax Powder 17 gm/Packet] 17 gm PO Q12HP PRN powd.pack 05/12/19 Potassium Chloride [Klor-Con 10 Meq Tablet ER] 20 meq PO DAILY 30 Days #60 tablet.er 05/12/19 Warfarin Sodium [Coumadin 2.5 mg Tablet] 2.5 mg PO QHS #30 tablet 05/12/19 Warfarin Sodium [Coumadin 2.5 mg Tablet] 2.5 mg PO QHS 30 Days #30 05/12/19 History of Present Illiness History of Present Illness: ESA AMADO is a 69 year old male Physical Exam Vital Signs: Temp Pulse Resp BP Pulse Ox 97.3 F 80 18 134/67 H 99 05/12/19 08:55 05/12/19 08:55 05/12/19 08:55 05/12/19 08:55 05/12/19 08:55 Intake & Output 05/11/19 05/12/19 05/13/19 06:59 06:59 06:59 Intake Total 1508 2381 Output Total 1175 1150 Balance 333 1231 Weight 123.5 kg 125.1 kg Results Laboratory Results: WBC 8.9 10^3/uL (4.0-10.5) 05/12/19 07:00 RBC 5.36 10^6/uL (4.35-5.55) 05/12/19 07:00 Hgb 14.3 g/dL (13.5-17.0) 05/12/19 07:00 Hct 42.3 % (37.9-51.0) 05/12/19 07:00 MCV 79 fl (80-97) L 05/12/19 07:00 MCH 26.8 pg (27.0-33.4) L 05/12/19 07:00 MCHC 33.9 g/dL (32.0-36.0) 05/12/19 07:00 RDW 15.2 % (11.5-14.0) H 05/12/19 07:00 Plt Count 245 10^3/uL (150-450) 05/12/19 07:00 Lymph % (Auto) 25.9 % (13-45) 05/03/19 03:47 [place] % (Auto) 12.7 % (3-13) 05/03/19 03:47 Eos % (Auto) 1.8 % (0-6) 05/03/19 03:47 Baso % (Auto) 1.0 % (0-2) 05/03/19 03:47 Absolute Neuts (auto) 4.5 10^3/uL (1.7-8.2) 05/03/19 03:47 Absolute Lymphs (auto) 2.0 10^3/uL (0.5-4.7) 05/03/19 03:47 Absolute Monos (auto) 1.0 10^3/uL (0.1-1.4) 05/03/19 03:47 Absolute Eos (auto) 0.1 10^3/uL (0.0-0.6) 05/03/19 03:47 Absolute Basos (auto) 0.1 10^3/uL (0.0-0.2) 05/03/19 03:47 Seg Neutrophils % 58.6 % (42-78) 05/03/19 03:47 PT 22.4 SEC (11.4-15.4) H 05/12/19 07:00 INR 1.94 05/12/19 07:00 Sodium 135.6 mmol/L (137-145) L 05/05/19 04:27 Potassium 3.6 mmol/L (3.6-5.0) 05/05/19 04:27 Chloride 99 mmol/L (98-107) 05/05/19 04:27 Carbon Dioxide 29 mmol/L (22-30) 05/05/19 04:27 Anion Gap 8 (5-19) 05/05/19 04:27 BUN 12 mg/dL (7-20) 05/05/19 04:27 Creatinine 0.37 mg/dL (0.52-1.25) L 05/05/19 04:27 Est GFR ( Amer) > 60 (>60) 05/05/19 04:27 Est GFR (MDRD) Non-Af > 60 (>60) 05/05/19 04:27 Glucose 104 mg/dL (75-110) 05/05/19 04:27 POC Glucose 146 mg/dL (70-110) H 05/02/19 06:30 Calcium 8.4 mg/dL (8.4-10.2) 05/05/19 04:27 Magnesium 1.9 mg/dL (1.6-2.3) 05/05/19 04:27 Total Bilirubin 1.9 mg/dL (0.2-1.3) H 05/03/19 03:47 Direct Bilirubin 0.6 mg/dL (0.0-0.4) H 05/03/19 03:47 Neonat Total Bilirubin Not Reportable 05/03/19 03:47 Neonat Direct Bilirubin Not Reportable 05/03/19 03:47 Neonat Indirect Bili Not Reportable 05/03/19 03:47 AST 27 U/L (17-59) 05/03/19 03:47 ALT 22 U/L (<50) 05/03/19 03:47 Alkaline Phosphatase 69 U/L (38-126) 05/03/19 03:47 Creatine Kinase 22 U/L (55-170) L 05/02/19 06:30 CK-MB (CK-2) 0.24 ng/mL (<4.55) 05/02/19 06:30 Troponin I 0.089 ng/mL 05/02/19 17:54 NT-Pro-B Natriuret Pep 2110 pg/mL (<125) H 05/02/19 06:30 Total Protein 7.4 g/dL (6.3-8.2) 05/03/19 03:47 Albumin 3.4 g/dL (3.5-5.0) L 05/03/19 03:47 TSH 0.63 uIU/mL (0.47-4.68) 05/02/19 14:06 Urine Color YELLOW 05/09/19 16:47 Urine Appearance CLEAR 05/09/19 16:47 Urine pH 7.0 (5.0-9.0) 05/09/19 16:47 Ur Specific [place] 1.006 05/09/19 16:47 Urine Protein NEGATIVE mg/dL (NEGATIVE) 05/09/19 16:47 Urine Glucose (UA) NEGATIVE mg/dL (NEGATIVE) 05/09/19 16:47 Urine Ketones NEGATIVE mg/dL (NEGATIVE) 05/09/19 16:47 Urine Blood MODERATE (NEGATIVE) H 05/09/19 16:47 Urine Nitrite NEGATIVE (NEGATIVE) 05/09/19 16:47 Urine Nitrite (Reflex) NEGATIVE (NEGATIVE) 05/06/19 15:25 Urine Bilirubin NEGATIVE (NEGATIVE) 05/09/19 16:47 Urine Urobilinogen 4.0 mg/dL (<2.0) H 05/09/19 16:47 Ur Leukocyte Esterase NEGATIVE (NEGATIVE) 05/09/19 16:47 Leukocyte Esterase Rfl NEGATIVE (NEGATIVE) 05/06/19 15:25 Urine WBC (Auto) 1 /HPF 05/09/19 16:47 Urine RBC (Auto) 2 /HPF 05/09/19 16:47 Urine Bacteria (Auto) TRACE /HPF 05/06/19 15:25 Urine WBC (Reflex) 1 /HPF 05/06/19 15:25 Squamous Epi Cells Auto <1 /HPF 05/06/19 15:25 Urine Mucus (Auto) RARE /LPF 05/09/19 16:47 Urine Ascorbic Acid NEGATIVE (NEGATIVE) 05/09/19 16:47 05/02/19 05/02/19 05/02/19 06:30 06:30 09:40 CK-MB (CK-2) 0.24 Troponin I 0.067 0.070 NT-Pro-B Natriuret Pep 2110 H 05/02/19 17:54 CK-MB (CK-2) Troponin I 0.089 NT-Pro-B Natriuret Pep Impressions: Soft Tissue Neck CT 05/02/19 00:00 IMPRESSION: NO SIGNIFICANT FINDING IN THE SOFT TISSUES OF THE NECK. Chest X-Ray 05/02/19 07:00 IMPRESSION: No acute cardiopulmonary abnormality copyright 2011 [employer]- All Rights Reserved Stroke Is this a Stroke Patient?: No Acute Heart Failure - Is this a Heart Failure Patient?: No
[2019-05-12] MEDS: WARFARIN SODIUM 5 MG TABLET PO SCH (22:10)
[2019-05-12 22:42] LABS: APPEARANCE,URINE CLEAR; BILIRUBIN,URINE NEGATIVE (NEGATIVE); COLOR,URINE YELLOW; GLUCOSE, URINE NEGATIVE (NEGATIVE); KETONES,URINE NEGATIVE (NEGATIVE); LEUKOCYTE ESTERASE,URINE NEGATIVE (NEGATIVE); NITRITE,URINE NEGATIVE (NEGATIVE); PROTEIN,URINE NEGATIVE (NEGATIVE); URINE SPECIFIC GRAVITY 1.011
[2019-05-13 05:11] LABS: INTERNATIONAL RATION (INR) 2.31; PROTHROMBIN TIME 25.8 SEC (11.4-15.4)
[2019-05-13] MEDS: CEPHALEXIN 500 MG CAPSULE PO SCH (05:30)
[2019-05-13] MEDS: PANTOPRAZOLE SODIUM 40 MG TABLET.DR PO SCH (08:24)
[2019-05-13 09:12] VITALS: BP 127/58
[2019-05-13] MEDS: POTASSIUM CHLORIDE 10 MEQ TABLET.ER PO SCH (09:17)
[2019-05-13] MEDS: METOPROLOL TARTRATE 25 MG TABLET PO SCH (09:17)
[2019-05-13] MEDS: OXYCODONE-ACETAMINOPHEN 5-325 MG TABLET PO PRN (09:17)
[2019-05-13] MEDS: FUROSEMIDE 40 MG TABLET PO SCH (09:18)
[2019-05-13] MEDS: MUPIROCIN 2% OINTMENT 22 GM TP SCH (09:18)
== END 2019-05-13 10:00 | disposition home health service (06) | DRG 309 ==
LOC: ER 06:21 → EH 10:08 → 3N 14:58
PROVIDERS: ADMIT Internal Medicine; ATTEND Internal Medicine
PROC: 0HBKXZZ Excision of Right Lower Leg Skin, External Approach (ICD-10-PCS; principal; 2019-05-06)
DX: I48.20 Chronic atrial fibrillation, unspecified (principal); Z68.41 Body mass index [BMI] 40.0-44.9, adult; C44.712 Basal cell carcinoma of skin of right lower limb, including hip; G80.9 Cerebral palsy, unspecified; I10 Essential (primary) hypertension; K21.9 Gastro-esophageal reflux disease without esophagitis; E78.5 Hyperlipidemia, unspecified; C44.1122 Basal cell carcinoma of skin of right lower eyelid, including canthus; L89.152 Pressure ulcer of sacral region, stage 2; G47.30 Sleep apnea, unspecified; E66.01 Morbid (severe) obesity due to excess calories; I44.7 Left bundle-branch block, unspecified; R46.0 Very low level of personal hygiene; B95.2 Enterococcus as the cause of diseases classified elsewhere; E78.00 Pure hypercholesterolemia, unspecified; B96.4 Proteus (mirabilis) (morganii) as the cause of diseases classified elsewhere; Z79.01 Long term (current) use of anticoagulants; Z79.899 Other long term (current) drug therapy; Z99.3 Dependence on wheelchair; Z91.030 Bee allergy status; Z96.651 Presence of right artificial knee joint
CPT/HCPCS: 36415; 70491; 71045; 80048; 80053; 81001; 82550; 82553; 82962; 83735; 83880; 84443; 84484; 85025; 85027; 85610; 87070; 87077; 87186; 87205; 88305; 93005; 93010; 99291; J3490; J7030

== ENCOUNTER → 2019-06-06 | Outpatient (CLI) | payer MEDICARE ==
--- NOTE | 2019-06-06 11:39 | RADIOLOGY REPORT (SQ) ---
EXAM DESCRIPTION: L SPINE 2 VIEWS COMPLETED DATE/TIME: 06/06/2019 11:14 am REASON FOR STUDY: CHRONIC LOW BACK PAIN (M54.5), CHRONIC SACRAL PAIN (M53.3) M53.3 SACROCOCCYGEAL D ISORDERS, NOT ELSEWHERE CLASSIFIED M54.5 LOW BACK PAIN COMPARISON: 07/26/2017 NUMBER OF VIEWS: Two views. TECHNIQUE: AP and lateral radiographic images acquired of the lumbar spine. LIMITATIONS: Limited AP evaluation secondary to lumbar curvature. FINDINGS: MINERALIZATION: Decreased. SEGMENTATION: No transitional anatomy. ALIGNMENT: Levoconvex lumbar curvature. VERTEBRAE: No definitive fracture. Mild anterior wedging at the thoracolumbar junction, likely physi ologic. Multilevel endplate change DISCS: Grossly preserved height. POSTERIOR ELEMENTS: Pedicles and facets are intact. No pars defect or posterior arch defects. Mild lower lumbar facet arthropathy. HARDWARE: None in the spine. PARASPINAL SOFT TISSUES: Vascular calcifications. PELVIS: Intact as visualized. No fractures or worrisome bone lesions. SI joints intact. OTHER: No other significant finding. IMPRESSION: Mild multilevel degenerative change without evidence of acute bony abnormality of the jayda mbar spine. TECHNICAL DOCUMENTATION: JOB ID: [id number] 2010 [employer]- All Rights Reserved Reading location - IP/workstation name: [email or web address]
--- NOTE | 2019-06-06 11:50 | RADIOLOGY REPORT (SQ) ---
EXAM DESCRIPTION: SACRUM AND COCCYX COMPLETED DATE/TIME: 06/06/2019 11:13 am REASON FOR STUDY: CHRONIC SACRAL PAIN (M53.3) M53.3 SACROCOCCYGEAL DISORDERS, NOT ELSEWHERE CLASSIF IED M54.5 LOW BACK PAIN COMPARISON: Lumbar spine radiographs from 2018. CT abdomen and pelvis from 2016. NUMBER OF VIEWS: Three views. TECHNIQUE: AP, lateral, and tilt views of the sacrum and coccyx. LIMITATIONS: Severely limiting osteopenia. FINDINGS: MINERALIZATION: Severe osteopenia. Bones are difficult to evaluate. BONES: Allowing for above, no displaced fracture in the visualized pelvis. Coccyx is difficult to se e with slight variable offset of the lower segments on lateral view. This may be chronic. SOFT TISSUES: No soft tissue swelling. No foreign body. OTHER: Severe bilateral hip degenerative arthropathy, incompletely assessed. IMPRESSION: Severely limited study. Marked osteopenia. Coccyx probably intact but with degenerativ e chronic changes. MRI if clinically warranted. TECHNICAL DOCUMENTATION: JOB ID: [id number] 2010 [employer]- All Rights Reserved Reading location - IP/workstation name: [email or web address]
== END ==
LOC: RAD 09:48
PROVIDERS: ATTEND Nurse Practitioner Primary Care
DX: M53.3 Sacrococcygeal disorders, not elsewhere classified (principal); M54.5 Low back pain; M47.896 Other spondylosis, lumbar region; M16.0 Bilateral primary osteoarthritis of hip
CPT/HCPCS: 72100; 72220